=== PATIENT | female | born 1995 | race Caucasian/White ===

== ENCOUNTER 2017-09-22 14:10 | Emergency (ER) | payer BC, OTHER ==
--- NOTE | 2017-09-22 16:13 | UC ---
Throat Pain/Nasal Thomas HPI - HPI Summary HPI Summary: 22 y/o female presents to the urgent care c/o sore throat and fever since yesterday. Pain is 5/10 with swallowing. She feels mild fatigue with B/L ear pain today. she has not taking anything to alleviate symptoms. PT denies cough, nasal congestion,SOB, chest pain, N/V/D. - History of Current Complaint Chief Complaint: UCRespiratory Stated Complaint: SORE THROAT Time Seen by Provider: 09/22/17 15:57 Hx Obtained From: Patient Hx Last Menstrual Period: 08/31/17 ?: No Onset/Duration: Gradual Onset, Lasting Days - 1 day, Still Present Severity: Moderate Pain Intensity: 5 Pain Scale Used: 0-10 Numeric Cough: None Associated Signs & Symptoms: Positive: Dysphagia, Fever - Epiglottits Risk Factors Epiglottis Risk Factors: Negative - Allergies/Home Medications Allergies/Adverse Reactions: Allergies Allergy/AdvReac Type Severity Reaction Status Date / Time Penicillins Allergy Severe Anaphylatic Verified 09/22/17 14:27 Shock Pertussis Immune Globulin Allergy Mild Agitation Verified 09/22/17 14:27 Home Medications: Home Medications Bupropion XL* [Wellbutrin XL *] 1 tab PO DAILY 09/22/17 [History Confirmed 09/22] Sertraline HCl [Zoloft] 1 tab PO DAILY 09/22/17 [History Confirmed 09/22/17] PMH/Surg Hx/FS Hx/Imm Hx Previously Healthy: Yes Psychological History: Depression - Surgical History Surgical History: Yes Surgery Procedure, Year, and Place: BILATERAL MYRINGOTOMY WITH EAR TUBE PLACEMENT, [facility] [place]. 2010 LAPAROSCOPIC CHOLECYSTECTOMY, [facility] [place]. 01/2014 RIGHT WRIST DEBRIDEMENT, [facility] [place]. 2013 3 IMPACTED WISDOM TEETH EXTRACTION, [facility], [place]. 2015 RIGHT WRIST ARTHROSCOPIC SURGERY, [facility] [place] - Family History Known Family History: Positive: Diabetes - Social History Occupation: Employed Full-time Lives: With Family Alcohol Use: Rare Substance Use Type: None Smoking Status (MU): Never Smoked Tobacco Have You Smoked in the Last Year: No Household Exposure Type: Cigarettes - Immunization History Most Recent Influenza Vaccination: unknown Review of Systems Constitutional: Fever - subjective at home Skin: Negative Eyes: Negative ENT: Sore Throat, Ear Ache - B/L ear pain Respiratory: Negative Cardiovascular: Negative Gastrointestinal: Negative Genitourinary: Negative Motor: Negative Neurovascular: Negative Musculoskeletal: Negative Neurological: Negative Psychological: Negative Is Patient Immunocompromised?: No All Other Systems Reviewed And Are Negative: Yes Physical Exam Triage Information Reviewed: Yes Vital Signs: Initial Vital Signs Temp 99.0 F 09/22/17 14:22 Pulse 85 09/22/17 14:22 Resp 16 09/22/17 14:22 BP 153/86 09/22/17 14:22 Pulse Ox 100 09/22/17 14:22 - Additional Comments VITAL SIGNS: Reviewed. GENERAL: Patient is a well developed and nourished obese female who is sitting comfortable in the examining table. Patient is not in any acute respiratory distress. HEAD AND FACE: No signs of trauma. No ecchymosis, hematomas or skull depressions. No sinus tenderness. EYES: PERRLA, EOMI x 2, No injected conjunctiva, no nystagmus. No photophobia. EARS: Hearing grossly intact. Ear canals and tympanic membranes are within normal limits. MOUTH: Positive pharynx with erythema, no exudates, mild palatal petechiae.No tonsillar enlargement. Uvula in midline. Positive post nasal drip NECK: Supple, trachea is midline, Positive anterior cervical lymphadenopathy, no JVD, no carotid bruit, no c-spine tenderness, neck with full ROM. No meningeal signs, no Kernig's or brudzinskis signs. CHEST: Symmetric, no tenderness at palpation LUNGS: Clear to auscultation bilaterally. No wheezing or crackles. CVS: Regular rate and rhythm, S1 and S2 present, no murmurs or gallops appreciated. ABDOMEN: Soft, non-tender. No signs of distention. No rebound no guarding, and no masses palpated. Bowel sounds are normal. EXTREMITIES: FROM in all major joints, no edema, no cyanosis or clubbing. NEURO: Alert and oriented x 3. No acute neurological deficits. Speech is normal and follows commands. SKIN: Dry and warm Throat Pain/Nasal Course/Dx - Course Course Of Treatment: 22 y/o female presents to the urgent care c/o sore throat and fever since yesterday. Pain is 5/10 with swallowing. She feels mild fatigue with B/L ear pain today. she has not taking anything to alleviate symptoms. PT denies cough, nasal congestion,SOB, chest pain, N/V/D.Hx obtained. Pt with pharyngitis on examination. Rapid strep ordered, result: negative. Viral pharyngitis.Pt Rx ibuprofen PO to alleviates symptoms of pain and swelling. Advised on hand washing to avoid spreading. Pt advised to rest, eat well and avoid strenuous exercise. Pt" BP is elevated today, advised decrease salt in her diet.If symptoms do not improve or worsen advised to return to the urgent care or f/u with her PCP for further evaluation and treatment. Pt understood and agreed - Differential Dx/Diagnosis Differential Diagnosis/HQI/PQRI: Influenza, Laryngitis, Mononucleosis, Otitis Media, Pharyngitis, Sinusitis, Tonsillitis, URI Provider Diagnoses: 1- Acute viral pharyngitis, 2- Elevated BP w/o Hx of HTN Discharge - Discharge Plan Condition: Stable Disposition: HOME Prescriptions: Ibuprofen TAB* [Motrin TAB* 800 MG] 800 mg PO Q6H #20 tab Patient Education Materials: Pharyngitis (ED), Low Sodium Diet (ED) Forms: *Work Release Referrals: Jose Luke MD [Primary Care Provider] - Additional Instructions: 1- take Ibuprofen PO q6-8hrs prn to alleviate pain and swelling. Increase fluid intake, eat well, rest and avoid strenuous exercise 2-If symptoms do not improve or worsen please return to the urgent care or f/u with your PCP for further evaluation and treatment. 3-BP is elevated today please decrease salt in diet, monitor BP and f/u with PCP if it continues to be elevated for further management
[2017-09-22 16:26] VITALS: BP 137/76
== END 2017-09-22 16:35 | disposition home or self-care (01) ==
LOC: UCEAST 14:10
DX: J02.8 Acute pharyngitis due to other specified organisms (principal); R03.0 Elevated blood-pressure reading, without diagnosis of hypertension; Z77.22 Contact with and (suspected) exposure to environmental tobacco smoke (acute) (chronic); F32.9 Major depressive disorder, single episode, unspecified
CPT/HCPCS: 87651; 99212; G0463

== ENCOUNTER 2017-11-30 07:07 | Emergency (ER) | payer BC ==
--- OUTSIDE RECORDS SUMMARY | 2017-11-30 07:17 | XMS REPORT ---
:1995 External Reference #:[id number] Author Organization [facility] Address [address] [place] [address] Phone [phone] Care Team Providers Name Role Phone Jose Luke MD Care Team Information Client Experience Administrator Unavailable Jose Luke MD Primary Care Physician Unavailable Payers Type Date Identification Numbers Payment Provider Subscriber Commercial Effective: Policy Number: BC/BS Of KRISTOFER Luevano 2015 [id number] PayID: [id number] [address] [address] [place] [address] Problems Date Description Provider Status Onset: 09/11/2011 Gastroesophageal reflux disease Ashely Tapia Active Onset: 04/16/2012 Acute sinusitis Mikala Pizarro M.D. Active Family History Date Family Member(s) Problem(s) Comments Number of Siblings Siblings: 3 Maternal Grandmother 55, DM, DVT Social History Type Date Description Comments Living Situation Lives with girlfriend in her apartment Occupation [employer] Going to school at [employer] for her BS, wants to go on to her masters in social work Employment going to [employer] Cigarette Use Nonsmoker ETOH Use Rare Recreational Drug Use Denies Drug Use Smoking Patient has never smoked Daily Caffeine Consumes on average 2 cups of coffee per day Additional Info Sexual preference is women Allergies, Adverse Reactions, Alerts Date Description Reaction Status Severity Comments Penicillin active 12/29/2010 Pertussis active Medications Medication Date Status Form Strength Qnty SIG Indications Ordering Provider Gabapentin Active Capsules 300mg 120caps one by F41.1 Meme Lopez 017 mouth Christiano, three PULL OVER times daily as needed for anxiety; may take 2 by mouth for bedtime dose Bupropion HCL Active Tablets ER 150mg 60tabs 2 by F41.1 Meme CortésNghia ER (XL) 017 24HR mouth Christiano, every day PULL OVER F34.1 Sertraline HCL 06/29/2017 Active Tablets 50mg 45tabs Take 1 And F41.1 Shelby Atwoodr, 1/2 Tab By [employer] Mouth Every Day F34.1 Multivitamin Adults Active Tablets 1 po qd Unknown Vitamin C Active Tablets 500m take one Unknown g every day Cyclobenzaprine HCL 05/08/2016 - Hx Tablets 10mg 30ta take one M54. [place] 06/29/2017 bs tablet by 5 Julio Cesar, mouth at hs [employer] as needed muscle spasm Clonazepam 05/08/2016 - Hx Tablets 0.5m 90ta take one F41. [place] 09/26/2017 g bs tablet three 1 Julio Cesar, times a day [employer] as needed anxiety Azithromycin 05/08/2016 - Hx Tablets 250m 12ta take 2 J01. [place] 06/29/2017 g bs tablets by 90 Julio Cesar, mouth x 3d [employer] then take 1 tablet daily for next 6 days Aircast Sport Brace 03/31/2016 - Hx Medium 1uni wear during M79. Shelby Left 04/02/2016 ts the day 672 KESHA Harrell Note For Work 03/31/2016 - Hx Josalenn was M79. Shelby 05/08/2016 seen by me 672 Julio Cesar, today and [employer] O[employer]ATOR may return to work on Sunday, 6\\13\\16 Tramadol HCL 03/31/2016 - Hx Tablets 50mg 60ta 1 every 8h M54. [place] 06/29/2017 bs as needed 5 Julio Cesar, pain [employer] A[employer] Sport Ankle 03/31/2016 - Hx Misc 1uni Wear during M79. [place] Brace/Right 05/09/2016 ts the day 672 Julio Cesar until sx [employer]ATOR resolve Clonazepam 01/10/2016 - Hx Tablets 0.5m 60ta take one F41. [place] 03/31/2016 g bs tablet twice 1 Julio Cesar, a day as [employer] needed anxiety Azithromycin 04/03/2015 - Hx Tablets 250m 6tab take 2 Shelby 10/23/2015 g s tablets by Julio Cesar, mouth today [employer] O[employer] then take 1 tablet daily for next 4 days Physical Therapy 01/20/2015 - Hx evaluate and 840. Shelby 10/23/2015 treat 9 Julio Cesar shouder [employer] OPERATOR strain Tramadol HCL 01/20/2015 - Hx Tablets 50mg 40ta 1 every 8h 840. [place] 10/23/2015 bs as needed 9 Julio Cesar, pain [employer] OPERATOR Celecoxib 12/07/2014 - Hx Capsules 200m 30ca Take 1 Jose F. 10/23/2015 g ps capsule by Shallish, mouth daily M.D. prn Clonazepam 10/30/2014 - Hx Tablets 0.5m 45ta take one 300. Shelby 10/23/2015 g bs tablet twice 00 Julio Cesar, a day as [employer]ATOR needed anxiety Zithromax 09/14/2014 - Hx Tablets 250m 6Tab 2 by mouth 465. Shelby 10/30/2014 g s every day 8 Julio Cesar, today , then [employer] O[employer]ATOR 1 by mouth every day times 4 Zoloft 08/14/2014 - Hx Tablets 100m 60ta 1 by mouth F41. [place] 03/31/2016 g bs every day 1 Julio Cesar, [employer]PERATOR F34.1 F43.12 Bupropion HCL 08/14/2014 - Hx Tablets ER 150mg 30tabs 1 by mouth F41.1 Shelby ER (XL) 03/31/2016 24HR every Julio Cesar, [employer] O[employer]ATOR morning F34.1 Amitriptyline 08/14/2014 - Hx Tablets 10mg 60tabs take 1 to 2 780.52 [place] HCL 10/23/2015 tablets by Julio Cesar, mouth at [employer] O[employer]ATOR bedtime Metaxalone 08/14/2014 - Hx Tablets 800mg 45tabs 1 by mouth 847.1 Shelby 10/23/2015 every 8h as Julio Cesar, needed [employer] muscle spasm Physical Therapy 08/14/2014 - Hx evaluate 847.1 [place] 12/07/2014 and treat Julio Cesar, cervical [employer] K[employer] OPERATOR and thoracic strain Alprazolam 04/10/2014 - Hx Tablets 0.5mg 45tabs 1 by mouth 300.00 [place] 10/30/2014 twice a day Julio Cesar, [employer]ATOR Zoloft 04/10/2014 - Hx Tablets 50mg 30tabs 1 po qd 300.00 [place] 08/14/2014 KESHA Harrell Alprazolam 02/20/2014 - Hx Tablets 0.25mg 45tabs 1 bid prn 300.00 [place] 04/10/2014 anxiety LESLEY HarrellP Hydrocodone/Acet 02/20/2014 - Hx Tablets 5-325mg 60tabs 1-2 po q 8 525.8 [place] aminophen 04/10/2014 prn Julio Cesar, [employer] OPERATOR Bupropion HCL XL 02/20/2014 - Hx Tablets ER 150mg 30tabs 1 by mouth 300.00 [place] 08/14/2014 24HR every day KESHA Harrell Naproxen 02/20/2014 - Hx Tablets 500mg 60tabs Take One 525.8 [place] 12/07/2014 Tablet By Julio Cesar, Mouth Every [employer] OPERATOR 12 Hours With Food 847.1 Canvas Lace Up 01/29/2014 - Hx Wear during 845.09 [place] Left Ankle Brace 04/10/2014 the day until Julio Cesar, the pain [employer] KIL[employer] OPERATOR resolves Nystatin/Triamci 10/20/2013 - Hx Cream 1000 30gm apply to 686.9 Robyn nolone 01/29/2014 00-0 affected area Brown, PULL OVER .1Un bid x 7 days it/G or until M-% clear Levofloxacin 07/07/2013 - Hx Tablets 500m 10tabs 1 by mouth 461.9 Valente Delaney, 10/20/2013 g every day for M.D. 10 days Excuse For 07/07/2013 - Hx pt seen in 461.9 Valente Delaney, [facility] 10/20/2013 office today M.D. please excuse Loratadine 06/26/2013 - Hx Tablets 10mg 30tabs 1 po qd 995.3 Leyda 02/20/2014 Ashely Little Clarithromycin 05/02/2013 - Hx Tablets 500m 20tabs take 1 tablet 461.0 [place] 06/26/2013 g by mouth Julio Cesar, every 12 [employer] OPERATOR hours Note Due To 03/13/2013 - Hx Christa was 462 [place] Health Issues 05/02/2013 see by me Julio Cesar, again and february [employer] OPERATOR return to work on Sunday, 5\\28\\13. Hydrocodone/Acet 03/10/2013 - Hx Tablets 5-32 40tabs 1-2 po q 8 462 [place] aminophen 05/02/2013 5mg prn KESHA Harrell Prednisone 03/10/2013 - Hx Tablets 20mg 10tabs 1 bid x 5d 462 [place] 05/02/2013 KESHA Harrell Naproxen 01/25/2013 - Hx Tablets 250m 20tabs 1-2 po bid 462 Jose F. 02/20/2014 g prn pain Hermelinda Luke Bactrim DS 01/25/2013 - Hx Tablets 800- 20tabs 1 po bid x 10 Yolie L. 03/10/2013 160m mulugeta Ruano M.D. No Active 09/06/2012 - Hx Unknown Medications 09/06/2012 Azithromycin 09/06/2012 - Hx Tablets 250m 12tabs take 2 461.9 [place] 09/25/2012 g tablets by Julio Cesar, mouth x 3d [employer] OPERATOR then take 1 tablet daily for next 6 days Robitussin A-C 09/06/2012 - Hx 120cc 1-2 tsp po 461.9 [place] 09/25/2012 q4h prn cough KESHA Harrell Note Due To 09/06/2012 - Hx Josalenn was 461.9 [facility] Health Issues 09/25/2012 seen by me Harrell, today for [employer] K[employer] OPERATOR illness and was unable to go to class, february return on Sunday, \\\\12 Cholestyramine 09/06/2012 - Hx Packet 4gm 60units Mix One Shelby 05/08/2016 Packet In Julio Cesar Clear Liquid [employer]UDGE KIL[employer] OPERATOR And Drink It Twice Daily Azithromycin 07/05/2012 - Hx Tablets 250m 12tabs take 2 461.9 [place] 09/06/2012 g tablets by Julio Cesar, mouth x 3d L[employer] KIL[employer] OPERATOR then take 1 tablet daily for next 6 days Note For School 07/05/2012 - Hx Please excuse 461.9 [place] 09/06/2012 [place]enn from [place] Harrell today LIME [employer]UDGE KIL[employer] OPERATOR due to illness Work Note 05/01/2012 - Hx seen in this 719.43 Mily 07/05/2012 office ok for [facility], work return, Afnp-C no lifting more than 5 lbs. Naproxen 05/01/2012 - Hx Tablets 500m 30tabs 1 po bid prn 719.43 Mily 07/05/2012 g pain Milka, Afreynold-C take with food Levofloxacin 04/16/2012 - Hx Tablets 750m 5tabs 1 po qd Mikala Arriaga 05/01/2012 mulugeta Pizarro M.D. Fluconazole 03/13/2012 - Hx Tablets 150m 2tabs 1 po ; february 112.1 Leyda 04/16/2012 g repeat in 5-7 michelle Little Afnp-C Mycolog-II 03/13/2012 - Hx Cream 30gm apply bid to 112.1 Leyda 05/01/2012 affected area [place] Fu[place]old-C Zithromax 10/16/2011 - Hx Tablets 250m 6Tabs 2 po qd today 382.9 Yolie Swenson 12/29/2011 g , then 1 po Alden, qd times 4 M.D. Vitamin D 09/18/2011 - Hx 50,0 8units 1 po weekly x Yolie Swenson 12/29/2011 00Un 8 weeks. katt Ruano M.D. Omeprazole 09/05/2011 - Hx Capsules DR 20mg 60caps 2 po qd Mily 05/01/2012 Milka Adelina-C Azithromycin 09/05/2011 - Hx Tablets 250m 12tabs take 2 461.0 [place] 01/10/2012 g tablets by rajwinder Harrell x 3d L[employer] K[employer] OPERATOR then take 1 tablet daily for next 6 days Note For School 09/05/2011 - Hx Josalenn was 461.0 [place] 01/10/2012 seen by me Harrell, today for [employer] K[employer] OPERATOR illness, missed classes this due to this illness Zithromax 03/02/2011 - Hx Tablets 250m 6Tabs 2 po qd today 382.9 Leyda 07/01/2011 g , then 1 po Anabel, qd times 4 Afnp-C Physical Therapy 01/25/2011 - Hx treatment and 842.19 Leyda 02/03/2011 evaluation of Anabel right Afreynold-C wrist/thumb sprain Minocin 01/25/2011 - Hx Capsules 100m 60caps 1 po bid 706.1 Leyda 07/01/2011 g Adelina Little-C Gym Excuse 12/29/2010 - Hx no gym class 842.19 Leyda 01/07/2011 due to right Anabel, hand/wrist Afnp-C injury until released by doctor; at least x 2 wks Work Limitation 12/29/2010 - Hx can work if 842.19 Leyda 01/07/2011 wrist splint Anabel, can stay in Afnp-C place; no heavy lifting due to right hand/wrist injury Zithromax 09/23/2010 - Hx Tablets 250m 6Tabs 2 po qd today Luis T. 12/29/2010 g , then 1 po Midura, qd times 4 M.D. Work Excuse 09/23/2010 - Hx unable to Luis T. 12/29/2010 work due to Midura, illness from M.D. 09/19 through 09/25 Gym Excuse 09/23/2010 - Hx unable to Luis T. 12/29/2010 participate Midjohn, in swimming M.D. due to chlorine sensitivity Nasonex 07/14/2010 - Hx Suspension 50 Samples 2 puffs qd Deepa 12/29/2010 g/Ac octavio Mckenzie M.D. Out Of Work 07/14/2010 - Hx pt to be out Marrero 09/21/2010 of work octavio and Jonah 07/15/10 for M.D. medical condition Fluconazole 06/19/2009 - Hx Tablets 150m 1tabs one tab po 789.00 Sanchez A. 07/02/2010 g otoniel Larry M.D. Note Due To 08/31/2008 - Hx stefanysallo was 078.12 [place] Health Issues 11/24/2009 seen by me Harrell, today for A [employer]IL[employer] OPERATOR planatr wart and may not participate in swimming, referred to A specialist [facility]-12 12/22/2005 - Hx Suspension 30mg 120ml 1 tsp bid 490 [place] 09/07/2007 ;4 Julio Cesar, mg/5 LIME SLUD[employer] KILN OPERATOR ML Robitussin ac 12/22/2005 - Hx 4Oz 1-2 tsp po 490 [place] 09/07/2007 q4h prn cough LESLEY HarrellP Ees 01/30/2005 - Hx 400m 30units 1 tid [place] 08/23/2005 g KESHA Harrell Biaxin 12/23/2002 - Hx 125m 150cc 1 1/2 tsp po Antonio A. Suspension 01/02/2003 g/5c bid maya Milton M.D. Rondac 12/23/2002 - Hx 100cc 1 TSP qid prn Antonio A. 01/02/2003 Hermelinda Milton Cefzil 04/08/2002 - Hx 250m 100ml 1 TSP PO bid Leyda Suspension 04/18/2002 g/5c X 10 Days maya Little Omeprazole - Hx Capsules DR 20mg 60caps 2 po qd Leyda 09/05/2011 Ashely Little [place] - Hx Suspension 1GM/ 2 tsp tid on Yolie LNghia 09/05/2011 10ML empty stomach Hermelinda Ruano Oxycodone/Acetam - Hx Tablets 5-32 20tabs 1-2 po q6 hrs Yolie Swenson inophen 09/05/2011 5mg prn pain Hermelinda Ruano (tw[age]) Hydrocodone/Acet - Hx Tablets 2.5- 1 po q4-6 hrs Unknown aminophen 05/02/2013 500m prn g Clarithromycin - Hx Tablets 1 po q6h Unknown 02/20/2014 Medications Administered in Office Medication Date Status Form Strength Qnty SIG Indications Ordering Provider TB Intradermal Administered Injection Jose Mills Test 014 Hermelinda Luke TB Intradermal Administered Injection Unknown Test 994 TB Intradermal Administered Injection Unknown Test 993 Immunizations CPT Code Status Date Vaccine Lot # [id number] Given 02/25/2013 Gardasil vacine typs 6,11,16,18 3 dose schedule [id number] 14493 Given 09/25/2012 Varicella (Chicken Pox) Immunization [id number] 02634 Given 09/25/2012 Gardasil vacine typs 6,11,16,18 3 dose schedule [id number] 99093 Given 12/29/2010 Meningococcal Conjugate Vaccine,Serogroups For [id number] Intramuscular Use 76063 Given 12/29/2010 Tetanus And Diptheria Adult Preservative Free [id number] >7Yrs 44637 Given 10/06/2009 H1N1 Virus Vaccine [id number] 50257 Given 10/06/2009 H1N1 Immunization Intramuscular/Intranasal W Counseling 98444 Given 07/07/2009 DO Not Use Split Influenza Virus Vaccine [id number] 21050 Given 08/22/2003 DT Immunization 61309 Given 04/07/1998 Oral Poliovirus Immunization 45289 Given 04/07/1998 MMR Virus Immunization 73058 Given 04/07/1998 DT Immunization 69525 Given 12/02/1997 Hepatitis B Immunization, [place]-19 Years 56333 Given 07/17/1997 Hepatitis B Immunization, -19 Years 71317 Given 06/16/1997 Hepatitis B Immunization, -19 Years 80129 Given 11/09/1994 (IPV) Inactive Poliovirus Vaccine 05472 Given 11/09/1994 MMR Virus Immunization 82969 Given 11/09/1994 DT Immunization 18593 Given 11/09/1994 (Hib) Hemoplilus Influenza B 80951 Given 1993 (IPV) Inactive Poliovirus Vaccine 09648 Given 1993 DT Immunization 15312 Given 1993 (IPV) Inactive Poliovirus Vaccine 39411 Given 1993 DT Immunization 51702 Given 1993 (IPV) Inactive Poliovirus Vaccine 88174 Given 1993 DT Immunization Vital Signs Date Vital Result Comment 11/19/2017 BP Systolic 118 mmHg BP Diastolic 78 mmHg Heart Rate 72 /min Body Temperature 98.0 F Respiratory Rate 18 /min Weight 259.00 lb 09/26/2017 BP Systolic 124 mmHg BP Diastolic 80 mmHg Heart Rate 78 /min Body Temperature 98.0 F Respiratory Rate 8 /min O2 % BldC Oximetry 16 % Height 67.5 inches 5'7.50" Weight 257.00 lb BMI (Body Mass Index) 39.7 kg/m2 06/29/2017 BP Systolic 122 mmHg BP Diastolic 84 mmHg Heart Rate 80 /min Body Temperature 98.0 F Respiratory Rate 18 /min Height 67.5 inches 5'7.50" Weight 274.00 lb BMI (Body Mass Index) 42.3 kg/m2 05/08/2016 BP Systolic 116 mmHg BP Diastolic 84 mmHg Heart Rate 84 /min Body Temperature 98.1 F Respiratory Rate 16 /min Height 67.5 inches 5'7.50" Weight 278.12 lb BMI (Body Mass Index) 42.9 kg/m2 03/31/2016 BP Systolic 122 mmHg BP Diastolic 64 mmHg Heart Rate 68 /min Body Temperature 98.2 F Respiratory Rate 18 /min Height 67.5 inches 5'7.50" Weight 280.00 lb BMI (Body Mass Index) 43.2 kg/m2 01/10/2016 BP Systolic 118 mmHg BP Diastolic 62 mmHg Heart Rate 76 /min Body Temperature 98.2 F Respiratory Rate 16 /min Height 67.5 inches 5'7.50" Weight 281.00 lb BMI (Body Mass Index) 43.4 kg/m2 01/20/2015 BP Systolic 120 mmHg BP Diastolic 88 mmHg Heart Rate 68 /min Body Temperature 98.2 F Respiratory Rate 18 /min Height 67.5 inches 5'7.50" Weight 272.00 lb BMI (Body Mass Index) 42.0 kg/m2 01/11/2015 BP Systolic 112 mmHg BP Diastolic 72 mmHg Heart Rate 64 /min Body Temperature 96.7 F Respiratory Rate 16 /min Height 67.5 inches 5'7.50" Weight 271.38 lb BMI (Body Mass Index) 41.9 kg/m2 12/07/2014 BP Systolic 112 mmHg BP Diastolic 72 mmHg Heart Rate 75 /min Body Temperature 97.8 F Respiratory Rate 18 /min O2 % BldC Oximetry 99 % SOB, Height 67.5 inches 5'7.50" Weight 272.38 lb BMI (Body Mass Index) 42.0 kg/m2 10/30/2014 BP Systolic 110 mmHg BP Diastolic 84 mmHg Heart Rate 84 /min Body Temperature 98.0 F Respiratory Rate 18 /min Height 67.5 inches 5'7.50" Weight 273.00 lb BMI (Body Mass Index) 42.1 kg/m2 09/14/2014 BP Systolic 120 mmHg BP Diastolic 80 mmHg Heart Rate 88 /min Body Temperature 98.6 F Respiratory Rate 18 /min Height 67.5 inches 5'7.50" Weight 274.00 lb BMI (Body Mass Index) 42.3 kg/m2 08/14/2014 BP Systolic 104 mmHg BP Diastolic 82 mmHg Heart Rate 76 /min Body Temperature 96.9 F Respiratory Rate 14 /min Height 67.5 inches 5'7.50" Weight 274.00 lb BMI (Body Mass Index) 42.3 kg/m2 07/08/2014 BP Systolic 122 mmHg BP Diastolic 82 mmHg Heart Rate 80 /min Body Temperature 97.9 F Respiratory Rate 14 /min Height 67.5 inches 5'7.50" Weight 273.00 lb BMI (Body Mass Index) 42.1 kg/m2 05/13/2014 BP Systolic 124 mmHg BP Diastolic 66 mmHg Heart Rate 74 /min Body Temperature 98.3 F Respiratory Rate 16 /min Height 67.5 inches 5'7.50" Weight 267.12 lb BMI (Body Mass Index) 41.2 kg/m2 04/10/2014 BP Systolic 110 mmHg BP Diastolic 80 mmHg Heart Rate 80 /min Body Temperature 97.6 F Respiratory Rate 16 /min Height 67.5 inches 5'7.50" Weight 277.00 lb BMI (Body Mass Index) 42.7 kg/m2 03/13/2014 BP Systolic 120 mmHg BP Diastolic 84 mmHg Heart Rate 84 /min Body Temperature 98.0 F Respiratory Rate 16 /min Height 67.5 inches 5'7.50" Weight 277.00 lb BMI (Body Mass Index) 42.7 kg/m2 02/20/2014 BP Systolic 122 mmHg BP Diastolic 86 mmHg Heart Rate 88 /min Body Temperature 98.3 F Respiratory Rate 16 /min Height 67.5 inches 5'7.50" Weight 279.00 lb BMI (Body Mass Index) 43.0 kg/m2 01/29/2014 BP Systolic 112 mmHg BP Diastolic 66 mmHg Heart Rate 80 /min Body Temperature 98.6 F Respiratory Rate 16 /min Height 67.5 inches 5'7.50" Weight 279.12 lb BMI (Body Mass Index) 43.1 kg/m2 10/20/2013 BP Systolic 120 mmHg BP Diastolic 80 mmHg Heart Rate 64 /min Body Temperature 98.3 F Respiratory Rate 18 /min Height 67.5 inches 5'7.50" Weight 279.00 lb BMI (Body Mass Index) 43.0 kg/m2 07/07/2013 BP Systolic 112 mmHg BP Diastolic 72 mmHg Heart Rate 76 /min Body Temperature 98.4 F Respiratory Rate 16 /min Weight 262.00 lb 06/26/2013 BP Systolic 128 mmHg BP Diastolic 70 mmHg Heart Rate 80 /min Body Temperature 98.3 F Respiratory Rate 18 /min Height 67.5 inches 5'7.50" Weight 261.00 lb BMI (Body Mass Index) 40.3 kg/m2 05/02/2013 BP Systolic 130 mmHg BP Diastolic 70 mmHg Heart Rate 72 /min Body Temperature 98.7 F Respiratory Rate 18 /min Height 67.5 inches 5'7.50" Weight 268.00 lb BMI (Body Mass Index) 41.4 kg/m2 03/13/2013 Heart Rate 92 /min Body Temperature 98.3 F Respiratory Rate 16 /min Height 67.5 inches 5'7.50" Weight 265.00 lb BMI (Body Mass Index) 40.9 kg/m2 03/10/2013 BP Systolic 110 mmHg BP Diastolic 80 mmHg Heart Rate 90 /min Body Temperature 99.6 F Respiratory Rate 16 /min Height 67.5 inches 5'7.50" measured Weight 265.25 lb BMI (Body Mass Index) 40.9 kg/m2 10/23/2012 BP Systolic 110 mmHg BP Diastolic 80 mmHg Heart Rate 102 /min Height 67.5 inches 5'7.50" measured Weight 250.00 lb BMI (Body Mass Index) 38.6 kg/m2 09/25/2012 BP Systolic 124 mmHg BP Diastolic 64 mmHg Heart Rate 66 /min Body Temperature 98.4 F Height 67.5 inches 5'7.50" measured Weight 248.00 lb BMI (Body Mass Index) 38.3 kg/m2 Right Visual Acuity Distance 20/70 Left Visual Acuity Distance 20/20 09/06/2012 BP Systolic 136 mmHg BP Diastolic 88 mmHg Heart Rate 78 /min Body Temperature 98.1 F Height 68 inches 5'8" Weight 250.00 lb BMI (Body Mass Index) 38.0 kg/m2 07/05/2012 BP Systolic 110 mmHg BP Diastolic 84 mmHg Heart Rate 77 /min Body Temperature 99.3 F Height 68 inches 5'8" Weight 240.00 lb BMI (Body Mass Index) 36.5 kg/m2 05/01/2012 BP Systolic 92 mmHg BP Diastolic 68 mmHg Heart Rate 68 /min Body Temperature 98.2 F Height 68 inches 5'8" Weight 233.00 lb BMI (Body Mass Index) 35.4 kg/m2 04/16/2012 BP Systolic 118 mmHg BP Diastolic 72 mmHg Heart Rate 80 /min Body Temperature 98.9 F Respiratory Rate 22 /min O2 % BldC Oximetry 99 % Height 68 inches 5'8" Weight 234.00 lb BMI (Body Mass Index) 35.6 kg/m2 03/13/2012 BP Systolic 110 mmHg BP Diastolic 80 mmHg Heart Rate 68 /min Body Temperature 98.4 F Height 68 inches 5'8" Weight 214.00 lb BMI (Body Mass Index) 32.5 kg/m2 Body Mass Index Percentile 96 % Weight Percentile >97th Height Percentile 92 % 01/24/2012 BP Systolic 120 mmHg BP Diastolic 80 mmHg Heart Rate 72 /min Body Temperature 97.3 F Respiratory Rate 18 /min Height 68 inches 5'8" Weight 236.00 lb BMI (Body Mass Index) 35.9 kg/m2 Body Mass Index Percentile 97 % Weight Percentile >97th Height Percentile 92 % 01/10/2012 BP Systolic 104 mmHg BP Diastolic 70 mmHg Heart Rate 76 /min Body Temperature 98.8 F Respiratory Rate 18 /min Height 68 inches 5'8" Weight 232.00 lb BMI (Body Mass Index) 35.3 kg/m2 Body Mass Index Percentile 97 % Weight Percentile >97th Height Percentile 92 % 12/29/2011 BP Systolic 100 mmHg BP Diastolic 60 mmHg Heart Rate 60 /min Body Temperature 97.4 F Respiratory Rate 20 /min Height 68 inches 5'8" Weight 234.00 lb BMI (Body Mass Index) 35.6 kg/m2 Body Mass Index Percentile 97 % Weight Percentile >97th Height Percentile 92 % 09/05/2011 BP Systolic 110 mmHg BP Diastolic 78 mmHg Heart Rate 76 /min Body Temperature 97.8 F Height 68 inches 5'8" Weight 235.00 lb BMI (Body Mass Index) 35.7 kg/m2 Body Mass Index Percentile 97 % Weight Percentile >97th Height Percentile 93 % 07/01/2011 BP Systolic 112 mmHg BP Diastolic 80 mmHg Heart Rate 60 /min Body Temperature 97.3 F Height 68 inches 5'8" Weight 241.00 lb BMI (Body Mass Index) 36.6 kg/m2 Body Mass Index Percentile 98 % Weight Percentile >97th Height Percentile 93 % 03/02/2011 BP Systolic 106 mmHg BP Diastolic 64 mmHg Heart Rate 92 /min Body Temperature 98.0 F Respiratory Rate 20 /min Height 68 inches 5'8" Weight 255.00 lb BMI (Body Mass Index) 38.8 kg/m2 Body Mass Index Percentile 98 % Weight Percentile >97th Height Percentile 93 % 01/25/2011 BP Systolic 104 mmHg BP Diastolic 80 mmHg Heart Rate 76 /min Body Temperature 97.5 F Height 68 inches 5'8" Weight 257.00 lb BMI (Body Mass Index) 39.1 kg/m2 Body Mass Index Percentile 98 % Weight Percentile >97th Height Percentile 93 % Right Visual Acuity Distance 20/70 Without Correction Left Visual Acuity Distance 20/25 Without Correction 12/29/2010 BP Systolic 110 mmHg BP Diastolic 70 mmHg Heart Rate 76 /min Weight 252.00 lb Weight Percentile >97th Height Percentile 3 % 09/23/2010 BP Systolic 102 mmHg BP Diastolic 68 mmHg Heart Rate 76 /min Body Temperature 99.5 F Weight 254.00 lb Weight Percentile >97th 09/21/2010 BP Systolic 130 mmHg BP Diastolic 80 mmHg Heart Rate 68 /min Body Temperature 98.6 F Weight 254.00 lb Weight Percentile >97th 07/14/2010 BP Systolic 90 mmHg BP Diastolic 70 mmHg Heart Rate 78 /min Body Temperature 98.3 F Weight 253.00 lb Weight Percentile >97th Height Percentile 3 % 11/24/2009 BP Systolic 110 mmHg BP Diastolic 80 mmHg Heart Rate 72 /min Body Temperature 98.3 F Weight 252.00 lb Weight Percentile >97th 06/23/2009 BP Systolic 118 mmHg BP Diastolic 72 mmHg Heart Rate 68 /min Weight 245.00 lb Weight Percentile >97th Height Percentile 3 % 06/19/2009 BP Systolic 120 mmHg BP Diastolic 80 mmHg Heart Rate 80 /min Body Temperature 97.8 F Weight 240.00 lb Weight Percentile >97th 08/31/2008 BP Systolic 110 mmHg BP Diastolic 80 mmHg Heart Rate 80 /min Body Temperature 98.4 F Weight 246.00 lb Weight Percentile >97th 02/10/2008 BP Systolic 124 mmHg BP Diastolic 80 mmHg Heart Rate 60 /min Body Temperature 98.0 F Weight 230.00 lb Weight Percentile >97th 09/07/2007 BP Systolic 126 mmHg BP Diastolic 60 mmHg Heart Rate 78 /min Body Temperature 98.8 F Weight 228.00 lb Weight Percentile >95th 12/22/2005 Heart Rate 108 /min Body Temperature 99.9 F Weight 219.00 lb Weight Percentile >95th 08/23/2005 BP Systolic 110 mmHg BP Diastolic 64 mmHg Heart Rate 72 /min Body Temperature 97.9 F Weight 203.00 lb Weight Percentile >95th 01/30/2005 BP Systolic 106 mmHg BP Diastolic 70 mmHg Heart Rate 84 /min Body Temperature 97.6 F Weight 197.00 lb Weight Percentile >95th 12/23/2002 BP Systolic 104 mmHg BP Diastolic 72 mmHg Heart Rate 68 /min Body Temperature 98.1 F Weight 137.00 lb Weight Percentile >95th 06/16/2002 BP Systolic 100 mmHg BP Diastolic 50 mmHg Heart Rate 80 /min Height 58 inches 4'10" Weight 122.00 lb BMI (Body Mass Index) 25.5 kg/m2 Weight Percentile >95th Height Percentile 95 % 04/08/2002 Heart Rate 84 /min Body Temperature 98.4 F Weight 124.00 lb Weight Percentile >95th 06/20/2001 BP Systolic 102 mmHg BP Diastolic 64 mmHg Heart Rate 80 /min Height 55.25 inches 4'7.25" Weight 105.00 lb BMI (Body Mass Index) 24.4 kg/m2 Weight Percentile >95th Height Percentile 95 % Right Visual Acuity Distance 20/25 Left Visual Acuity Distance 20/40 07/04/2000 BP Systolic 102 mmHg BP Diastolic 60 mmHg Heart Rate 80 /min Height 52.5 inches 4'4.50" Weight 87.00 lb BMI (Body Mass Index) 22.6 kg/m2 Head Percentile 5 % Weight Percentile >95th Height Percentile 95 % Right Visual Acuity Distance 20/50 Left Visual Acuity Distance 20/50 10/31/1999 Body Temperature 97.2 F Weight 81.00 lb Weight Percentile >95th 07/26/1999 Body Temperature 99.2 F Weight 78.00 lb Weight Percentile >95th 06/13/1999 BP Systolic 104 mmHg BP Diastolic 62 mmHg Heart Rate 78 /min Height 42 inches 0'4" Weight 78.00 lb Weight Percentile >95th Height Percentile 5 % Right Visual Acuity Distance 20/50 Left Visual Acuity Distance 20/20 04/07/1998 BP Systolic 86 mmHg Ra Ped Cuff BP Diastolic 58 mmHg Ra Ped Cuff Heart Rate 92 /min Height 45.5 inches 3'9.50" Weight 61.50 lb Weight Percentile >95th 12/21/1997 Body Temperature 96.1 F Weight 58.00 lb Weight Percentile >95th 12/02/1997 Body Temperature 99.1 F Weight 57.00 lb Weight Percentile >95th 06/16/1997 BP Systolic 80 mmHg BP Diastolic 60 mmHg Height 42.50 inches 3'6.50" Weight 47.50 lb 47 lbs. 8 ozs. Weight Percentile >95th Results Test Date Test Result H/L Range Note Laboratory test 09/22/2017 Rapid Strep Negative Negative 1 finding Molecular Laboratory test 09/21/2015 Urine Negative Negative 2 finding Laboratory test 12/04/2014 Troponin I 0.00 ng/mL <0.03 3 finding CBC Auto Diff 12/04/2014 White Blood Count 10.4 10^3/uL 4.8-10.8 Red Blood Count 4.29 10^6/uL 4.0-5.4 Hemoglobin 11.9 g/dL Low 12.0-16.0 Hematocrit 37 % 35-47 Mean Corpuscular Volume 85 fL 80-97 Mean Corpuscular Hemoglobin 28 pg 27-31 Mean Corpuscular HGB Conc 33 g/dL 31-36 Red Cell Distribution Width 14 % 10.5-15 Platelet Count 241 10^3/uL 150-450 Mean Platelet Volume 10 um3 7.4-10.4 Abs Neutrophils 7.6 10^3/uL 1.5-7.7 Abs Lymphocytes 2.2 10^3/uL 1.0-4.8 Abs Monocytes 0.5 10^3/uL 0-0.8 Abs Eosinophils 0.1 10^3/uL 0-0.6 Abs Basophils 0.1 10^3/uL 0-0.2 Abs Nucleated RBC 0 10^3/uL Granulocyte % 73.2 % 38-83 Lymphocyte % 20.8 % Low 25-47 Monocyte % 4.6 % 1-9 Eosinophil % 0.7 % 0-6 Basophil % 0.7 % 0-2 Nucleated Red Blood Cells % 0 Comp Metabolic Panel 12/04/2014 Sodium 138 mmol/L 133-145 Potassium 3.8 mmol/L 3.5-5.0 Chloride 107 mmol/L 101-111 Co2 Carbon Dioxide 26 mmol/L 22-32 Anion Gap 5 mmol/L 2-11 Glucose 101 mg/dL High 70-100 Blood Urea Nitrogen 10 mg/dL 6-24 Creatinine 0.82 mg/dL 0.51-0.95 BUN/Creatinine Ratio 12.2 8-20 Calcium 9.1 mg/dL 8.6-10.3 Total Protein 7.1 g/dL 6.4-8.9 Albumin 3.9 g/dL 3.2-5.2 Globulin 3.2 g/dL 2-4 Albumin/Globulin Ratio 1.2 1-3 Total Bilirubin 0.30 mg/dL 0.2-1.0 Alkaline Phosphatase 92 U/L 34-104 Alt 19 U/L 7-52 Ast 18 U/L 13-39 Egfr Non- 88.0 >60 Egfr 113.2 >60 4 Laboratory test 12/04/2014 D Dimer Quantitative < 200 ng/mL Less Than 230 5 finding Laboratory test 07/08/2014 Quickstrep NEGATIVE Negative finding Throat - Beta Strep Fma NEG @ 48HRS Ebv Acute Infection Abs 07/08/2014 Ebv Ab Vca, IgM <36.0 U/mL 0.0- 35.9 6 Ebv Early Antigen Ab, IgG <9.0 U/mL 0.0-8.9 7 Ebv Ab Vca, IgG 145.0 U/mL High 0.0-17.9 8 Ebv Nuclear Antigen Ab, IgG 167.0 U/mL High 0.0-17.9 9 Interpretation: SEE NOTE 10 CBC Electronic (a) 10/20/2013 WBC 7.8 3.6-9.6 RBC 4.23 3.90-5.70 Hemoglobin (Fma/CMC/CTX) 11.9 g/dL Low 12.1 - 17.2 Hematocrit (Fma/CMC/CTX) 35.7 % Low 36.1 - 50.3 Platelets 254 10^3/ul 150-400 Lymph% 28.5 20.5-51.1 Mixed% 3.1 Neutrophils % 68.4 Mean Corpuscular Vol 84 82.2-97.4 Mean Corpuscular Hemoglobin 28.0 27.6-33.3 Mean Corpuscular Hemo Concen 33.2 32.0-36.0 RDW 14.1 High 11.6-13.7 Mean Platelet Volume 8.7 6.5-11.0 Comprehensive Metabolic Prof 10/20/2013 Albumin 4.4 g/dL 3.8-5.5 Alk. Phos. 94 U/L 30-110 Alt (SGPT) 25 U/L 7-35 Ast (Sgot) 22 U/L 5-34 BUN 13 mg/dL 6-26 Calcium 9.1 mg/dL 8.6-10.2 Chloride 100 mEq/L 94-112 Creatinine 0.9 mg/dL 0.6-1.4 Carbon Dioxide 25 mEq/L 21-32 Glucose 88 mg/dL 70-105 Sodium 138 mEq/L 134-149 Total Bilirubin 0.3 mg/dL 0.2-1.3 Total Protein 7.5 g/dL 6.3-8.1 Potassium 4.8 mEq/L 3.6-5.5 Globulin 3.1 g/dL 2.0-4.8 A/G Ratio 1.4 Calc 0.6-2.3 BUN/Creat Ratio 15.1 Calc 8.0-36.0 Laboratory test finding 10/20/2013 Lipase 38 U/L 1-64 11 Laboratory test finding 10/20/2013 Amylase 36 U/L 20-105 Laboratory test finding 06/26/2013 Quickstrep NEGATIVE Negative Throat - Beta Strep Fma neg@48hrs CMV Abs Igg/Igm 03/10/2013 CMV Ab, IgG (Cytomegalovirus) <0.9 index 0.0-0.8 12 CMV Ab, IgM Cytomegalovirus <0.9 index 0.0-0.8 13 Ebv Acute Infection Abs 03/10/2013 Ebv Ab Vca, IgM 0.4 AI 0.0-0.8 14 Ebv Early Antigen Ab, IgG <0.2 AI 0.0-0.8 15 Ebv Ab Vca, IgG 7.7 AI High 0.0-0.8 16 Ebv Nuclear Antigen Ab, IgG >8.0 AI High 0.0-0.8 17 Interpretation: SEE NOTE 18 Urine Microscopic 03/09/2013 Urine WBC 1+ (<10 /hpf) None Seen Urine RBC None Seen None Seen Urine Mucus Present /lpf Absent Urine Epithelial Cells 1+ Squamous /hpf None Seen Bacteria Urine 2+ None Seen Crystals Urine Amorphous /lpf None Seen Urinalysis 03/09/2013 Urine Color Yellow Urine Appearance Clear Urine Specific [place] 1.025 1.010-1.030 Urine Esterase Negative Negative Urine Nitrate Negative Negative Urine Urobilinogen Negative E.U./dL Negative Urine Protein 1+ mg/dL Negative Urine pH 6.0 5-9 Urine Blood Trace Negative Urine Ketones Negative mg/dL Negative Urine Bilirubin Negative Negative Urine Glucose Negative mg/dL Negative Laboratory test finding 03/09/2013 Monospot Negative Negative 19 Laboratory test finding 03/09/2013 Urine Negative Negative 20 Comp Metabolic Panel 03/09/2013 Sodium 140 mmol/L 133-145 Potassium 4.2 mmol/L 3.5-5.0 Chloride 106 mmol/L 101-111 Co2 Carbon Dioxide 25.0 mmol/L 22-32 Anion Gap 9.0 mmol/L 2-11 Glucose 98 mg/dL 70-100 Blood Urea Nitrogen 12 mg/dL 6-24 Creatinine 0.80 mg/dL 0.50-1.40 BUN/Creatinine Ratio 15.0 8-20 Calcium 8.9 mg/dL 8.1-9.9 Total Protein 6.3 g/dL 6.2-8.1 Albumin 3.7 g/dL 3.6-5.4 Globulin 2.6 g/dL 2-4 Albumin/Globulin Ratio 1.4 1-3 Total Bilirubin 0.4 mg/dL 0.4-1.5 Alkaline Phosphatase 128 U/L 50-176 Alt 44 U/L 14-54 Ast 29 U/L 12-42 Egfr Non- 92.4 >60 Egfr 118.8 >60 21 CBC Auto Diff 03/09/2013 White Blood Count 11.4 10^3/uL High 4.8-10.8 Red Blood Count 4.19 10^6/uL 4.0-5.4 Hemoglobin 11.9 g/dL Low 12.0-16.0 Hematocrit 36 % 35-47 Mean Corpuscular Volume 86 fL 80-97 Mean Corpuscular Hemoglobin 28 pg 27-31 Mean Corpuscular HGB Conc 33 g/dL 31-36 Red Cell Distribution Width 13 % 10.5-15 Platelet Count 242 10^3/uL 150-450 Mean Platelet Volume 11 um3 High 7.4-10.4 Abs Neutrophils 8.4 10^3/uL High 1.5-7.7 Abs Lymphocytes 2.1 10^3/uL 1.0-4.8 Abs Monocytes 0.9 10^3/uL High 0-0.8 Abs Eosinophils 0 10^3/uL 0-0.6 Abs Basophils 0 10^3/uL 0-0.2 Abs Nucleated RBC 0.02 10^3/uL Granulocyte % 73.6 % 38-83 Lymphocyte % 18.1 % Low 25-47 Monocyte % 8.0 % 1-9 Eosinophil % 0.1 % 0-6 Basophil % 0.2 % 0-2 Nucleated Red Blood Cells % 0.1 Urinalysis 03/08/2013 Urine Color Yellow Urine Appearance Clear Urine Specific [place] 1.025 1.010-1.030 Urine Esterase Negative Negative Urine Nitrate Negative Negative Urine Urobilinogen Negative E.U./dL Negative Urine Protein Trace mg/dL Negative Urine pH 5.5 5-9 Urine Blood Negative Negative Urine Ketones Negative mg/dL Negative Urine Bilirubin Negative Negative Urine Glucose Negative mg/dL Negative Rapid Strep A 03/08/2013 Rapid Strep A (SEE NOTE) 22 Laboratory test finding 03/08/2013 Rapid Influenza A B Antigen (SEE NOTE) 23 Throat Beta Strep Culture (SEE NOTE) 24 HSV Igm I/II 10/23/2012 HSV, IgM I/II <0.91 Ratio 0.00-0.90 25, 26 Combination Combination Nuswab Vaginitis 10/23/2012 Atopobium vaginae 0 (Low) Score 25 Plus Bvab 2 0 (Low) Score 25 Megasphaera 1 0 (Low) Score 25, 27 Noemi albicans, Darline Negative Negative 25 Noemi glabrata, Darline Negative Negative 25, 28 Trich vag by Darline Negative Negative 25 Chlamydia trachomatis, Darline Negative Negative 25 Neisseria gonorrhoeae, Darline Negative Negative 25 Laboratory test finding 10/23/2012 TSH 1.68 mIU/L 0.50-6.00 Lipid Profile 10/23/2012 Cholesterol 158 mg/dL 120-200 HDL 48 mg/dL 30-85 Triglycerides 100 mg/dL 30-200 HDL Risk Factor 3.3 CALC 0.0-4.4 LDL (Calculated) 90 CALC 0-129 VLDL (Calculated) 20 mg/dL 0-50 Comprehensive Metabolic Prof 10/23/2012 Albumin 5.1 g/dL 3.8-5.5 Alk. Phos. 133 U/L High 30-110 29 Alt (SGPT) 42 U/L High 7-35 30 Ast (Sgot) 32 U/L 5-34 BUN 16 mg/dL 6-26 Calcium 9.4 mg/dL 8.6-10.2 Chloride 101 mEq/L 94-112 Creatinine 0.8 mg/dL 0.6-1.4 Carbon Dioxide 27 mEq/L 21-32 Glucose 92 mg/dL 70-105 Sodium 139 mEq/L 134-149 Total Bilirubin 0.5 mg/dL 0.2-1.3 Total Protein 7.9 g/dL 6.3-8.1 Potassium 4.5 mEq/L 3.6-5.5 Globulin 2.9 g/dL 2.0-4.8 A/G Ratio 1.8 Calc 0.6-2.3 BUN/Creat Ratio 20.0 Calc 8.0-36.0 CBC Electronic (a) 10/23/2012 WBC 8.0 3.6-9.6 RBC 4.45 3.90-5.70 Hemoglobin (Fma/CMC/CTX) 13.5 g/dL 12.1 - 17.2 Hematocrit (Fma/CMC/CTX) 39.0 % 36.1 - 50.3 Platelets 248 10^3/ul 150-400 Lymph% 25.7 20.5-51.1 Mixed% 4.2 Neutrophils % 70.1 Mean Corpuscular Vol 88 82.2-97.4 Mean Corpuscular Hemoglobin 30.2 27.6-33.3 Mean Corpuscular Hemo Concen 34.5 32.0-36.0 RDW 11.8 11.6-13.7 Mean Platelet Volume 8.7 6.5-11.0 Anti Viral AB Screen 10/23/2012 HIV 1/O/2 Abs-Index Value <1.00 < 1.00 25, 31 HIV 1/O/2 Abs, Qual Non Reactive 25, 32 Laboratory test finding 10/23/2012 RPR NON-REACTIVE Non-Reactive 25 Hep B Surface Antigen NON-REACTIVE Non-Reactive 25 Hep C Abs 10/23/2012 Hep C Antibody NON-REACTIVE Non-Reactive 25 Hep C S/Co Ratio 0.1 0.0-0.7 25 Ua - Non Micro ([facility]) 09/25/2012 Appearance CLEAR Color YELLOW Glucose, Urine (Fma/CMC/CTX) NEG Bilirubin NEG Ketones NEG SP Grav 1.010 Blood NEG PH 7.0 Protein NEG Urobil 0.2 Nitrite NEG Leukocytes (Fma/CMC/Centrex) NEG Culture Stool 01/18/2012 M <SEE 33 NOTE> Laboratory test finding 01/13/2012 TSH 2.66 mIU/L 0.50-6.00 Free T4 0.96 ng/dL 0.75-1.54 Free T3 2.24 pg/mL 2.00-4.90 Comprehensive Metabolic Prof 01/13/2012 Albumin 4.6 g/dL 3.8-5.5 Alk. Phos. 89 U/L 30-110 Alt (SGPT) 10 U/L 7-35 Ast (Sgot) 14 U/L 5-34 BUN 12 mg/dL 6-26 Calcium 9.5 mg/dL 8.6-10.2 Chloride 100 mEq/L 94-112 Creatinine 1.0 mg/dL 0.6-1.4 Carbon Dioxide 24 mEq/L 21-32 Glucose 105 mg/dL 70-105 Sodium 135 mEq/L 134-149 Total Bilirubin 0.3 mg/dL 0.2-1.3 Total Protein 7.2 g/dL 6.3-8.1 Potassium 4.1 mEq/L 3.6-5.5 Globulin 2.6 g/dL 2.0-4.8 A/G Ratio 1.8 Calc 0.6-2.2 BUN/Creat Ratio 12.1 Calc 8.0-36.0 CBC Electronic ([facility]) 01/13/2012 WBC 8.8 3.6-9.6 RBC 4.20 3.90-5.70 Hemoglobin (Fma/CMC/CTX) 12.2 g/dL 12.1 - 17.2 Hematocrit (Fma/CMC/CTX) 37.5 % 36.1 - 50.3 Platelets 241 10^3/ul 150-400 Lymph% 24.5 20.5-51.1 Mixed% 4.4 Neutrophils % 71.1 Mean Corpuscular Vol 89.3 82.2-97.4 Mean Corpuscular Hemoglobin 29.0 27.6-33.3 Mean Corpuscular Hemo Concen 32.5 32.0-36.0 RDW 13.1 11.6-13.7 Mean Platelet Volume 11.0 6.5-11.0 CBC Electronic ([facility]) 09/05/2011 WBC 9.4 3.6-9.6 RBC 4.14 3.90-5.70 Hemoglobin (Fma/CMC/CTX) 12.1 g/dL 12.1 - 17.2 Hematocrit (Fma/CMC/CTX) 35.6 % Low 36.1 - 50.3 Platelets 215 10^3/ul 150-400 Lymph% 24.9 20.5-51.1 Mixed% 3.5 Neutrophils % 71.6 Mean Corpuscular Vol 86 82.2-97.4 Mean Corpuscular Hemoglobin 29.2 27.6-33.3 Mean Corpuscular Hemo Concen 34.1 32.0-36.0 RDW 13.7 11.6-13.7 Mean Platelet Volume 10.0 6.5-11.0 Laboratory test finding 09/05/2011 B12 523 pg/mL 230-1050 Basic Metabolic Profile 09/05/2011 BUN 11 mg/dL 6-26 Calcium 9.4 mg/dL 8.6-10.2 Chloride 106 mEq/L 94-112 Creatinine 0.7 mg/dL 0.6-1.4 Carbon Dioxide 23 mEq/L 21-32 Glucose 94 mg/dL 70-105 Sodium 137 mEq/L 134-149 Potassium 4.3 mEq/L 3.6-5.5 BUN/Creat Ratio 15.3 Calc 8.0-36.0 Laboratory test finding 09/05/2011 Folate 10.21 ng/mL 3.00-16.00 Free T3 2.37 pg/mL 2.00-4.90 Free T4 0.66 ng/dL Low 0.75-1.54 34 TSH 3.12 mIU/L 0.50-6.00 Lyme Igg/M W/RFX West 09/05/2011 Lyme IgG/IgM Ab <0.91 index 0.00- 0.90 35 Lyme Disease Ab, Quant, IgM <0.91 index 0.00-0.90 36 Laboratory test finding 09/05/2011 Vitamin D, 25 Oh 14.4 ng/mL Low 32.0- 100.0 37 Urinalysis 08/09/2011 Ua Color JACINTO Yellow Appearance-Urine CLEAR Clear Specific [place]-Ur 1.031 High 1.010-1.030 Esterase-Urine NEGATIVE Negative Nitrite NEGATIVE Negative [id number] NEGATIVE Negative Protein-Urine TRACE Negative PH-Urine 6.0 5-9 Blood-Urine NEGATIVE Negative Ketones-Urine TRACE Negative Bilirubin-Ur SEE ICTOTEST Negative Glucose-Urine NEGATIVE Negative Laboratory test finding 08/09/2011 Ictotest NEGATIVE 38 Comp Metabolic Panel 08/09/2011 Sodium 139 mmol/L 135-145 Potassium 3.5 mmol/L 3.5-5.0 Chloride 108 mmol/L 101-111 Co2 (Carbon Dioxide) 25.0 mmol/L 22-32 Anion Gap 6.0 mmol/L 2-11 39 Glucose 108 mg/dL High 70-100 BUN 12 mg/dL 6-24 Creatinine 0.8 mg/dL 0.50-1.40 One Over Creatinine 1.25 BUN/Creatinine Ratio 15.0 8-20 Calcium 8.3 mg/dL 8.1-9.9 Total Protein 6.3 GM/DL 6.2-8.1 Albumin 3.6 GM/DL 3.6-5.4 Globulin 2.7 GM/DL 2-4 Albumin/Globulin Ratio 1.3 1-3 Bilirubin Total 0.6 mg/dL 0.4-1.5 40 Alkaline Phosphatase 88 U/L 40-122 Alt (SGPT) 65 U/L High 14-54 Ast (Sgot) 65 U/L High 12-42 eGFR Non- 93.4 > 60 eGFR 120.1 > 60 41 CBC With Manual Diff 08/09/2011 White Blood Count 11.9 CUMM High 4.8-10.8 Red Cell Count 3.76 CUMM Low 4.2-5.4 Hemoglobin 11.1 g/dL Low 12.0-16.0 Hematocrit 32 % Low 35-47 Mean Corpuscular Volume 86 um3 79-97 Mean Corpuscular Hemoglob 30 pg 27-31 Mean Corpuscular HGB Cone 34 g/dL 32-36 Redcell Distribution WDTH 14 % 10.5-15 Platelet Count 185 CUMM 150-450 Mean Platelet Volume 11.6 um3 High 7.4-10.4 Polysegmented Neutrophil 76 % 38-83 Lymphocyte 19 % Low 25-47 Monocyte 5 % 0-13 Absolute Neutrophil Count 9.0 Elliptocyte FEW Laboratory test finding 08/09/2011 Lipase 43 U/L 22-51 (HCG) Serum NEGATIVE Negative 42 Laboratory test finding 07/28/2011 Clotest NEGATIVE Ua - Micro (Fma) 01/25/2011 Appearance SLT CLOUDY Color YELLOW Glucose NEG Bilirubin NEG Ketones NEG SP Grav >=1.030 Blood TRACE-LYSED PH 5.0 Protein NEG Urobil 0.2 Nitrite NEG Leukocytes (Fma/CMC/Centrex) TRACE Hyaline - /Lpf Granular - /Lpf WBC (Fma,Centrex) 3-5 RBC 1-3 Epith MANY /Lpf Bacteria 2+ /Hpf Z#Comments NOT A CC Laboratory test finding 01/25/2011 Free T4 0.93 ng/dL 0.75-1.54 TSH 2.28 mIU/L 0.50-6.00 Laboratory test finding 01/25/2011 Urine Culture (Fma/CMC) negative Laboratory test finding 07/14/2010 Quickstrep NEGATIVE Negative Throat - Beta Strep Fma NEG@48HRS Laboratory test finding 06/19/2009 Urine Culture No growth. 43 C-Reactive Protein 1.2 mg/dL High 0.0-0.5 43 Ua - Micro (Fma) 06/19/2009 Appearance CLOUDY Color YELLOW Glucose, Urine (Fma/CMC/CTX) NEG Bilirubin NEG Ketones NEG SP Grav 1.020 Blood TRACE-INTACT PH 6.0 Protein NEG Urobil 0.2 Nitrite NEG Leukocytes (Fma/CMC/Centrex) NEG Hyaline - /Lpf Granular - /Lpf WBC (Fma,Centrex) 3-5 RBC 3-5 Mucus (Fma/CBC/Centrex) SM AMT /Lpf Epith OCC /Lpf Bacteria 2+ /Hpf Amorphous (Fma/CMC/Centrex) - /Lpf Crystals, Fluid (Fma/CMC/CTX) - Z#Comments - CBC (a) 06/19/2009 WBC 10.9 High 3.6-9.6 RBC 4.72 3.90-5.70 Hemoglobin (Fma/CMC/CTX) 13.2 g/dL 12.1 - 17.2 Hematocrit (Fma/CMC/CTX) 41.7 % 36.1 - 50.3 Mean Corpuscular Vol 88.3 82.2-97.4 Mean Corpuscular Hemaglobin 28.0 27.6-33.3 Mean Corpuscular Hemo Concen 31.7 Low 33.0-36.0 Platelets 268 10^3/ul 150-400 Lymph% 32.0 20.5-51.1 Mixed% 9.1 Neutrophils % 58.9 RDW 13.6 11.6-13.7 Mean Platelet Volume 12.6 High 7.4-10.4 Urine (Fma) 06/19/2009 SP Grav 1.020 Urine, (Fma/CMC/CTX) NEGATIVE Comprehensive Metabolic Prof 06/19/2009 Albumin 4.7 g/dL 3.8-5.5 Alk. Phos. 107 U/L 30-110 Alt (SGPT) 19 U/L 7-35 Ast (Sgot) 21 U/L 5-34 BUN 11 mg/dL 6-26 Calcium 9.5 mg/dL 8.6-10.2 Chloride 102 mEq/L 94-112 Creatinine 0.9 mg/dL 0.6-1.4 Carbon Dioxide 27 mEq/L 21-32 Glucose 106 mg/dL High 70-105 Sodium 134 mEq/L 134-149 Total Bilirubin 0.3 mg/dL 0.2-1.3 Total Protein 7.8 g/dL 6.3-8.1 Potassium 4.4 mEq/L 3.6-5.5 Globulin 3.1 g/dL 2.0-4.8 A/G Ratio 1.5 Calc 0.6-2.2 BUN/Creat Ratio 12.3 Calc 8.0-36.0 Laboratory test finding 08/23/2005 Quickstrep NEGATIVE Negative Throat Culture NEGATIVE Ua - Micro ([facility]) 06/16/2002 Appearance CLEAR/YELLOW Glucose NEG Bilirubin NEG Ketones NEG SP Grav 1.020 Blood NEG PH 6.5 Protein NEG Urobil 1.0 Nitrite NEG Leukocytes TRACE Hyaline - /Lpf Granular - /Lpf WBC'S 20-30 RBC'S 0-1 Mucus SM AMT /Lpf Epith FEW RENAL Bacteria RARE Amorphous - /Lpf Crystals - /Lpf Comments - Ua - Micro ([facility]) 06/20/2001 Appearance CLEAR LT YELLOW Glucose NEGATIVE Bilirubin NEGATIVE Ketones NEGATIVE SP Grav 1.015 Blood NEGATIVE PH 7.5 Protein NEGATIVE Urobil 0.2 Nitrite NEGATIVE Leukocytes TRACE Hyaline - /Lpf Granular - /Lpf WBC'S 3-5 RBC'S 0-1 Mucus - /Lpf Epith FEW Bacteria RARE Amorphous SLT /Lpf Crystals - /Lpf Comments - Ua - Non Micro ([facility]) 07/07/2000 Appearance CLEAR YELLOW Glucose - Bilirubin - Ketones TRACE SP Grav >=1.030 Blood - PH 5.5 Protein - Urobil 0.2 Nitrite - Leukocytes SMALL Laboratory test finding 07/07/2000 Hematocrit 36 % 36.1 - 50.3 Ua - Non Micro ([facility]) 06/14/1999 Appearance CLEAR YELLOW SP Grav 1.025 Esterase NEGATIVE Nitrite NEGATIVE pH 6.0 Protein NEGATIVE Glucose NEGATIVE Ketones NEGATIVE Urobil NEGATIVE Bilirubin NEGATIVE Blood NEGATIVE 1 Bottom Saw Operator: [id number] 2 If is still suspected, please repeat test after 48 to 72 hours. This test detects intact HCG only and is indicated for the early detection of . 3 Reference Range and Interpretation: TnI (ng/mL) Interpretation Less Than 0.03 ng/mL Not supportive of diagnosis of [place] 0.03 - 0.50 ng/mL Indeterminate: suggest serial studies if clinically indicated. Greater than 0.5 ng/mL Consistent with diagnosis of [place] 4 Because ethnic data is not always readily available, this report includes an eGFR for both -Americans and non- Americans. The National Kidney Disease Education Program (NKDEP) does not endorse the use of the MDRD equation for patients that are not between the ages of 18 and 70, are , have extremes of body size, muscle mass, or nutritional status, or are non- or non-. According to the National Kidney Foundation, irrespective of diagnosis, the stage of the disease is based on the level of kidney function: Stage Description GFR(mL/min/1.73 m(2)) 1 Kidney damage with normal or decreased GFR 90 2 Kidney damage with mild decrease in GFR 60-89 3 Moderate decrease in GFR 30-59 4 Severe decrease in GFR 15-29 5 Kidney failure <15 (or dialysis) 5 Please note: The following may produce a false positive D Dimer test: - Rheumatoid factor greater than 60 IU/ml - Plasma hemoglobin greater than 0.05 gm/dl - Bilirubin greater than 50 mg/dl - Lipids greater than 1000 mg/dl - FDP greater than 20 ug/ml 6 Negative <36.0 Equivocal 36.0 - 43.9 Positive >43.9 7 Negative < 9.0 Equivocal 9.0 - 10.9 Positive >10.9 8 Negative <18.0 Equivocal 18.0 - 21.9 Positive >21.9 9 Negative <18.0 Equivocal 18.0 - 21.9 Positive >21.9 10 EBV Interpretation Chart Interpretation EBV-IgM VCA-IgG EBNA-IgG EA(D)-IgG EBV Seronegative - - - - Early Phase + - - - Acute Primary + + - +or- Infection Convalescence/Past - + + +or- Infection Reactivated +or- + + + Infection + Antibody Present - Antibody Absent 11 1 SST 12 Negative <0.9 Equivocal 0.9 - 1.0 Positive >1.0 13 Negative <0.9 Equivocal 0.9 - 1.0 Positive >1.0 14 Negative <0.9 Equivocal 0.9 - 1.0 Positive >1.0 15 Negative <0.9 Equivocal 0.9 - 1.0 Positive >1.0 16 Negative <0.9 Equivocal 0.9 - 1.0 Positive >1.0 17 Negative <0.9 Equivocal 0.9 - 1.0 Positive >1.0 18 EBV Interpretation Chart . Interpretation VCA-IgM EA-IgG VCA-IgG NA-ABS . Susceptible - - - - Acute Infection + +or- +or- - Convalescent Phase +or- +or- + + Chronic or Reactivated - + + +or- Old Infection - - +or- + + Antibody Present - Antibody Absent 19 N 20 If is still suspected, please repeat test after 48 to 72 hours. This test detects intact HCG only and is indicated for the early detection of . 21 Because ethnic data is not always readily available, this report includes an eGFR for both -Americans and non- Americans. The National Kidney Disease Education Program (NKDEP) does not endorse the use of the MDRD equation for patients that are not between the ages of 18 and 70, are , have extremes of body size, muscle mass, or nutritional status, or are non- or non-. According to the National Kidney Foundation, irrespective of diagnosis, the stage of the disease is based on the level of kidney function: Stage Description GFR(mL/min/1.73 m(2)) 1 Kidney damage with normal or decreased GFR 90 2 Kidney damage with mild decrease in GFR 60-89 3 Moderate decrease in GFR 30-59 4 Severe decrease in GFR 15-29 5 Kidney failure <15 (or dialysis) 22 RUN DATE: 03/08/13 [facility] LAB LIVE PAGE 1 RUN TIME: [address] [place] [id number] Specimen Inquiry Name: CHRISTA LUEVANO : [address]: Martín Yun MD Acct: [id number] Unit: [id number] AGE: 17 Location: ED Re03/08/13 SEX: F Status: REG ER SPEC: [id number] MARYANN: 03/08/[address]: Lashell ESTRADA REQ: [id number] RECD: 03/08/13 STATUS: RES OTHR DR: Martín Patel MD, MD _ SOURCE: THROAT SPDESC: ORDERED: Rapid Strep A, Throat Beta Str Procedure Result Verified Site Rapid Strep A Final 03/08/13- 2004 ML Rapid Strep A Negative for Group A Strep by enzyme immunoassay The baker operator automatic and regulatory agencies both recommend that a throat culture for beta strep be performed if a Rapid Group A Strep assay yields a negative result. Therefore a culture will be automatically performed on all negative samples. Throat Beta Strep Culture PENDING END OF REPORT * ML=Testing performed at Main Lab DEPARTMENT OF PATHOLOGY, [place] [employer] [place], [place] [address] Antonino Khan M.D. Director [facility] Permit #[id number] RUN DATE: 03/08/13 [facility] LAB LIVE PAGE 1 RUN TIME: [address] [place] [id number] Specimen Inquiry Name: CHRISTA LUEVANO : [address]: Martín Yun MD Acct: [id number] Unit: [id number] AGE: 17 Location: ED Re03/08/13 SEX: F Status: REG ER SPEC: [id number] MARYANN: 03/08/[address]: Lashell ESTRADA REQ: [id number] RECD: 03/08/13 STATUS: ML BROUSSARD DR: Jose Yun,MD Martín _ SOURCE: NASAL ASPI SPDESC: ORDERED: Rapid Flu A B Procedure Result Verified Site Rapid Influenza A B Antigen Final 03/08/132013 ML Influenza A Antigen Negative by Enzyme Immunoassay Influenza B Antigen Negative by Enzyme Immunoassay Cell culture testing can be performed to confirm negative test results and to assist in detecting other viruses that can produce similar clinical symptoms. Please notify [facility]biology [facility] if further testing is desired. END OF REPORT * ML=Testing performed at Main Lab DEPARTMENT OF PATHOLOGY, [address] [place] [address] Antonino Khan M.D. Director [facility] Permit #[id number] 24 RUN DATE: 03/10/13 [facility] LAB LIVE PAGE 1 RUN TIME: [address] [place] [id number] Specimen Inquiry Name: CHRISTA LUEVANO : [address]: Martín Yun MD Acct: [id number] Unit: [id number] AGE: 17 Location: ED Re03/08/13 SEX: F Status: DEP ER SPEC: [id number] MARYANN: 03/08/[address]: Lashell ESTRADA REQ: [id number] RECD: 03/08/13 STATUS: ML BROUSSARD DR: Martín Patel MD, MD _ SOURCE: THROAT SPDESC: ORDERED: Rapid Strep A, Throat Beta Str Procedure Result Verified Site Rapid Strep A Final 03/08/13- 2004 ML Rapid Strep A Negative for Group A Strep by enzyme immunoassay The baker operator automatic and regulatory agencies both recommend that a throat culture for beta strep be performed if a Rapid Group A Strep assay yields a negative result. Therefore a culture will be automatically performed on all negative samples. Throat Beta Strep Culture Final 03/10/13- 0845 ML Negative For Group A Beta Streptococcus END OF REPORT * ML=Testing performed at Main Lab DEPARTMENT OF PATHOLOGY, [address] [place] [address] Antonino Khan M.D. Director [facility] Permit #[id number] 25 FASTING; 3 SST'S; 1 APTIMA SWAB 26 Negative <0.91 Equivocal 0.91 - 1.09 Positive >1.09 27 Calculate total score by adding the 3 individual bacterial vaginosis (BV) marker scores together. Total score is interpreted as follows: . Total score 0-1: Indicates the absence of BV. Total score 2: Indeterminate for BV. Additional clinical data should be evaluated to establish a diagnosis. Total score 3-6: Indicates the presence of BV. . This test was developed and its performance characteristics determined by [employer]. It has not been cleared or approved by the Food and Drug Administration. The FDA has determined that such clearance or approval is not necessary. 28 This test was developed and its performance characteristics determined by [employer]. It has not been cleared or approved by the Food and Drug Administration. The FDA has determined that such clearance or approval is not necessary. 29 RESULT MARS'D 30 RESULT REC'D 31 Index Value: Specimen reactivity relative to the negative cutoff. 32 Negative: Non-reactive by ICMA Positive: Repeatedly reactive by ICMA. Refer to Western Blot confirmatory test for final interpretation. . Physician should vocational guidance counselor the patient about result significance. Patient information should be kept strictly confidential. 33 RUN DATE: 01/20/12 [facility] LIVE PAGE 1 RUN TIME: 1216 Specimen Inquiry RUN USER: INTERFACE Name: INGRIDMATTYCHRISTA ENRIQUE Status: REG REF Re01/18/12 Age/Sex: 16/F Unit#: [id number] Location: [facility] : 93 SPEC #: [id number] MARYANN: 01/18/12-1035 STATUS: COMP REQ #: [id number] RECD: 01/18/12-[address]: Mily Gunderson) SOURCE: STOOL ENTR: 01/18/12-[address] [facility] DR: [facility]: ORDERED: STOOL CULTURE, O P: ANDERSON/John KIRK DIFF AMP DNA, STL LACTOFERRIN ACT WKST: B 01/20/12 #1 Procedure Result Verified Site > STOOL CULT SENSITIVITY Final -1216 ML NEGATIVE FOR THE ENTERIC PATHOGENS - SALMONELLA, SHIGELLA, AEROMONAS, PLESIOMONAS AND YERSINIA. VIBRIO AND E. COLI 0157 NOT ROUTINELY TESTED FOR IN A STOOL CULTURE. PLEASE SUBMIT SAMPLE WITH SPECIFIC REQUEST FOR DESIRED ORGANISM(S). > STOOL SPECIMEN DESCRIPTION Final -1125 ML STOOL COLOR LIGHT BROWN STOOL FORM SEMI-FORMED STOOL CONSISTENCY SOFT > CAMPYLOBACTER CULTURE Final -1216 ML NO GROWTH OF CAMPYLOBACTER AFTER 48 HOURS > SHIGA TOXIN 1 AND 2 (EHEC) Final -1110 ML SHIGA TOXIN 1 NEGATIVE BY IMMUNOCHROMATOGRAPHIC ASSAY SHIGA TOXIN 2 NEGATIVE BY IMMUNOCHROMATOGRAPHIC ASSAY > O P: GIARDIA/CRYPTO SCREEN Final -1312 ML GIARDIA ANTIGEN NEGATIVE BY IMMUNOASSAY CRYPTOSPORIDIUM ANTIGEN NEGATIVE BY IMMUNOASSAY Giardia and cryptosporidium antigen testing performed by immunoassay. If patient is immunocompromised or has traveled to or is from a developing country, a full ova and parasite exam with microscopic (OPMIC) is recommended. All samples will be held one month in case full ova and parasite testing is requested. Contact the Microbiology Department at [phone]. TEST LIMITATIONS: As with all diagnostic procedures, the results obtained should be used in conjunction with other clinical information available the physician. Negative results can occur in samples containing antigen below lower limits of DEPARTMENT OF PATHOLOGY, [address] [place] [address] [facility] Permit #[id number] Hermelinda García M.D. Access Rn RUN DATE: 01/20/12 [facility] NMI LIVE PAGE 2 RUN TIME: 1216 Specimen Inquiry RUN USER: INTERFACE Name: CHRISTA LUEVANO Status: REG REF Re01/18/12 Age/Sex: 16/F Unit#: [id number] Location: [facility]. : 93 -- -- CONTINU ED Procedure Result Verified Site O P: GIARDIA/CRYPTO SCREEN Final (continued) 01/19/12- 1312 detection of the assay. The use of colonic washes, aspirates or other diluted sample types has not been established and could affect the performance of the assay. Stool samples contaminated with an oily or particulate base (eg. Barium, mineral oil etc.) could interfere with the test and are not recommended. > C. DIFFICILE AMPLIFIED DNA Final -1424 ML C. DIFFICILE AMPLIF DNA NEGATIVE: NO TOXIGENIC C. DIFFICILE DETECTED TEST LIMITATIONS: Assay does not distinguish between viable and non-viable organisms. Test results are to be used in conjunction with information available from the patient clinical evaluation and other diagnostic procedures. Two distinct groups have been identified that can harbor C. difficile asymptomatically at very high rates. Colonization at rates up to 50% and higher have been reported in infants and rates up to 32% in cystic fibrosis patients. > FECAL LACTOFERRIN (STOOL WBC) Final -1437 ML FECAL LACTOFERRIN NEGATIVE BY IMMUNOASSAY TEST LIMITATIONS: Assay detects elevated levels of lactoferrin released from fecal leukocytes as a marker of intestinal inflammation. The test may not be appropriate in immunocompromised persons. Fecal samples from breast fed infants should not be used with this assay. - [facility] Permit #[id number] [facility] [address] DEPARTMENT OF PATHOLOGY, [facility] [employer] [place] [address] [place] Permit #[id number] Antonino Khan M.D. Director [place] M.D. Access Rn 34 RESULT RECKD' 35 Negative <0.91 Equivocal 0.91 - 1.09 Positive >1.09 Note: The CDC currently advises that Western blot testing be performed following all equivocal or positive EIA results. Final diagnosis should include appropriate clinical findings and a positive EIA which is also positive by Western blot. 36 Negative <0.91 Equivocal 0.91 - 1.09 Positive >1.09 . Note: IgM levels may peak at 3-6 weeks post infection, then gradually decline. FDA currently advises that Western Blot testing be performed following all equivocal or positive EIA results. Final diagnosis should include appropriate clinical findings and a positive EIA which is also positive by Western Blot. 37 Effective September 11, 2011 Vitamin D, 25-Hydroxy reference intervals will be changing to 30-100. . Recent studies consider the lower limit of 32.0 ng/mL to be a threshold for optimal health. Jorge Luis BW. J Nutr. 2004;135(2):317-22. 38 ICTOTEST IS A QUALITATIVE CONFIRMATORY TEST FOR BILIRUBIN. 39 Anion gap measurement may be of limited value in the presence of any alkalosis, especially in a combined acid base disorder. . 40 A metabolite of Naproxen, O-desmethylnaproxen, has been shown to interfere with the Jendrassik-St. Xavier method for measuring total bilirubin. Samples from patients who have taken Naproxen have shown spurious elevation in total bilirubin levels. 41 Because ethnic data is not always readily available, this report includes an eGFR for both -Americans and non- Americans. The National Kidney Disease Education Program (NKDEP) does not endorse the use of the MDRD equation for patients that are not between the ages of 18 and 70, are , have extremes of body size, muscle mass, or nutritional status, or are non- or non-. According to the National Kidney Foundation, irrespective of diagnosis, the stage of the disease is based on the level of kidney function: Stage Description GFR(mL/min/1.73 m(2)) 1 Kidney damage with normal or decreased GFR 90 2 Kidney damage with mild decrease in GFR 60-89 3 Moderate decrease in GFR 30-59 4 Severe decrease in GFR 15-29 5 Kidney failure <15 (or dialysis) 42 If is still suspected, please repeat test after 48 to 72 hours. . This test detects intact HCG only and is indicated for the early detection of . 43 1SST,1BORITEX Procedures Date CPT Code Description Status 12/07/2014 44576 Electrocardiogram Complete Completed 09/25/2012 16964 Vision Test- screening test of visual acuity, Completed quantitative, bila 04/16/2012 32071 Pulse Oximetry Completed Encounters Type Date Location Provider CPT E/M Dx Office Visit 09/26/2017 5:30p [place] [address] F34.1 F43.12 F41.1 Office Visit 06/29/2017 10:30a Main Office Shelby Harrell [facility] [address] F41.1 F34.1 D48.5 Office Visit 05/08/2016 12:45p Main Office Shelby Harrell, [facility] 10789 J01.90 M54.5 Office Visit 03/31/2016 9:30a Main Office Shelby Harrell [facility] 19461 M79.672 Office Visit 01/10/2016 9:30a Main Office Shelby Harrell [employer] [address]3387 F41.1 F34.1 F43.12 Office Visit 01/20/2015 11:30a Main Office Shelby Harrell, [facility] 82794 840.9 848.49 719.43 Office Visit 01/11/2015 10:00a Main Office Shelby Harrell, [facility] 42558 300.00 311 Office Visit 12/07/2014 10:00a Northeast Office Jose Luke M.D. 46808 786.59 Office Visit 10/30/2014 1:15p Main Office Shelby Harrell [employer] 36602 300.00 311 Office Visit 09/14/2014 7:45p Main Office Shelby Harrell [facility] 10940 465.8 300.00 Office Visit 08/14/2014 9:30a Main Office Shelby Harrell [facility] 13271 300.00 780.52 847.1 Office Visit 07/08/2014 11:00a Main Office Shelby Julio Cesar, [facility] 25695 462 Office Visit 05/13/2014 9:30a Main Office Shelby Julio Cesar, [facility] 33270 300.00 Office Visit 04/17/2014 11:30a Northeast Office Jose Luke M.D. 65349 V74.1 Office Visit 04/10/2014 9:00a Main Office Shelby Julio Cesar, [facility] 59668 300.00 Office Visit 03/13/2014 10:00a Main Office Shelby Julio Cesar, [facility] 00703 300.00 Office Visit 02/20/2014 2:15p Main Office Shelby Julio Cesar, [facility] 64710 300.00 525.8 Office Visit 01/29/2014 4:30p Northeast Office Shelbyadelfo MontesJulio Cesar, [facility] 52502 845.09 Office Visit 10/20/2013 1:15p [place] [address] 686.9 789.02 Office Visit 07/07/2013 11:10a Main Office Valente Delaney M.D. 75007 461.9 Office Visit 06/26/2013 11:30a Main Office Leyda Little Afnp-C 77690 462 995.3 Office Visit 05/02/2013 2:30p Main Office Shelby Montesrer, [facility] 36806 461.0 Office Visit 03/13/2013 10:45a Northeast Office Shelbyadelfo MontesJulio Cesar, [facility] 36718 462 Office Visit 03/10/2013 7:00p Main Office Shelby Julio Cesar, [facility] 15014 462 Office Visit 10/23/2012 11:00a Main Office Shelby Julio Cesar, [facility] 26953 V65.49 Office Visit 09/25/2012 5:40p Main Office Jose Luke M.D. 13399 724.5 V70.0 V05.4 V04.89 V72.0 Office Visit 09/06/2012 3:00p Main Office Shelby Montesrer, [facility] 51915 461.9 Office Visit 07/05/2012 3:15p Main Office Shelby Julio Cesar, [employer] 78740 461.9 Office Visit 05/01/2012 2:30p Main Office Mily Jarquin, Afnp-C 65774 719.43 Office Visit 04/16/2012 3:10p Main Office Mikala Pizarro M.D. 69422 461.9 Office Visit 03/13/2012 1:00p Main Office Leyda Little [facility]np-C 12035 112.1 Office Visit 01/24/2012 4:15p Main Office Mily Jarquin, [facility]np[facility]C 90090 530.81 564.1 Office Visit 01/10/2012 6:00p Main Office Mily Jarquin, Afnp-C 81093 787.91 789.07 794.5 Office Visit 12/29/2011 1:00p Main Office Shelby Harrell, [facility] 11561 461.0 Office Visit 09/05/2011 11:30a Main Office Yolie Ruano M.D. 31279 782.0 268.9 523.01 Office Visit 07/01/2011 10:15a Main Office Leyda Little Afnp-C 96895 530.81 575.8 Office Visit 03/02/2011 3:15p Main Office Leyda Little, Afnp-C 32078 382.9 Office Visit 01/25/2011 10:00a Main Office Leyda Little Afnp-C 93797 V20.2 783.1 842.19 706.1 791.7 Office Visit 12/29/2010 10:00a Main Office Leyda Little Afnp-C 06842 842.19 V06.5 V05.8 V68.89 Office Visit 09/23/2010 8:20a Main Office Luis Reyes M.D. 88151 461.9 465.9 Office Visit 09/21/2010 10:15a Main Office Leyda Little Afnp-C 07536 465.8 Office Visit 07/14/2010 11:30a Northeast Office Deepa Mulligan, [address]13[address] 462 Hermelinda 388.70 Office Visit 11/24/2009 1:45p Main Office Leyda LittleAdelina-C 32567 381.01 Office Visit 06/23/2009 7:00p Main Office Herminia Coburn M.D. 65436 789.00 Office Visit 06/19/2009 11:10a Main Office Daniel Larry M.D. 43592 789.00 Office Visit 08/31/2008 2:30p Main Office Shelby Harrell [facility] 08566 078.12 Office Visit 02/10/2008 12:00p Main Office Luis Reyes M.D. 15078 920 921.2 Office Visit 09/07/2007 11:15a Main Office Leyda LittleAdelina-C 06986 381.01 Office Visit 12/22/2005 10:30a Main Office Shelby Harrell [employer] 11363 490 Office Visit 08/23/2005 10:30a Main Office Shelby Harrell [facility] 71315 465.9 462 Office Visit 01/30/2005 7:15p Main Office Shelby Harrell [facility] 18029 473.9 Office Visit 12/23/2002 10:10a Main Office Antonio Milton M.D. 54753 460 381.81 Office Visit 06/16/2002 1:00p Main Office Leyda LittleAdelina-C 49659 Office Visit 04/08/2002 8:30p Main Office Leyda LittleAdelina-C 45563 Office Visit 06/20/2001 1:45p Main Office Leyda LittleAdelina-C 09976 Office Visit 07/04/2000 6:00p Main Office Mily Milka Afreynold-C 48258 Plan of Care 11/19/2017 - Corrie Mg, NPZ12.4 Encounter for screening for malignant neoplasm of cervixComments:I performed a pap smear, I will call you with abnormal results or send you a letter with normal results.Z11.3 Encntr screen for infections w sexl mode of transmissNew Labs:RPR ([facility]/Fma)gc/chlam aptima urine ctxComments:I will call you if the results are positive otherwise, you will get a note in the mail or on portal for negative results.AllComments:~B _~U_Medication Management~b_~u_ Patient Understands medications she's taking? Yes No Are there Barriers to Adherence? Yes No Has the patient been asked about herbal supplements and therapies, and OTC meds? Yes No ~B_~U_Care Plan~b_~u_1. Patient has been queried about patient's goals/ preferences and functional/lifestyle goals at relevant visits. If relevant, describe: na2. Treatment goals as explained to the patient: above3. Are there barriers to meeting treatment goals? Yes No If Yes, please describe:4. Self-Management goals as described to the patient: Yes NoFollow up:As always, we strongly encourage a healthy diet and making physical activity a part of your every day life. If you have questions about how or where to start, please contact the office.
[2017-11-30 07:22] VITALS: BP 141/87
--- NOTE | 2017-11-30 07:29 | UC ---
FLU HPI - HPI Summary HPI Summary: 3 DAYS OF FATIGUE. YESTERDAY DEVELOPED BODY ACHES, CHILLS, SWEATS, N/V, COUGH. NO FLU SHOT THIS SEASON. - History of Current Complaint Chief Complaint: UCGeneralIllness Stated Complaint: FLU SYMPTOMS Time Seen by Provider: 11/30/17 07:21 Hx Obtained From: Patient Hx Last Menstrual Period: 08/31/17 Onset/Duration: Gradual Onset, Lasting Days, Still Present Severity Currently: Moderate Severity Initially: Moderate Pain Intensity: 7 Pain Scale Used: 0-10 Numeric Associated Signs & Symptoms: Positive: Myalgia, Cough, Nasal Congestion, Vomiting, Diarrhea - Allergy/Home Medications Allergies/Adverse Reactions: Allergies Allergy/AdvReac Type Severity Reaction Status Date / Time MS Penicillins [Penicillins] Allergy Severe Anaphylatic Verified 11/30/17 07:22 Shock MS Pertussis Immune Globulin Allergy Mild Agitation Verified 11/30/17 07:22 [Pertussis Immune Globulin] Home Medications: Home Medications Gabapentin CAP(*) [Neurontin 300 CAP(*)] 300 mg PO TID 11/30/17 [History Confirmed 11/30/17] metroNIDAZOLE [Flagyl 500 MG TAB] 500 mg PO BID 11/30/17 [History Confirmed 07/09] PMH/Surg Hx/FS Hx/Imm Hx Psychological History: Anxiety, Depression - Surgical History Surgical History: Yes Surgery Procedure, Year, and Place: [place]IL[place]AL [place]OT[place] E[place] [facility] [place]OSCOPIC [place]LE[place] [facility] [place] RIGHT WRIST [place], [facility] [place]. [place] 3 IMPACTED WISDOM TEETH EXTRACTION, [facility]. 2014 RIGHT WRIST ARTHROSCOPIC [place] [facility] [place] - Family History Known Family History: Positive: Diabetes Negative: Hypertension - Social History Alcohol Use: None Substance Use Type: None Smoking Status (MU): Never Smoked Tobacco Have You Smoked in the Last Year: No Household Exposure Type: Cigarettes - Immunization History Most Recent Influenza Vaccination: unknown Review of Systems Constitutional: Chills, Fatigue ENT: Nasal Discharge Respiratory: Cough Cardiovascular: Negative Gastrointestinal: Vomiting, Diarrhea, Nausea Musculoskeletal: Myalgia All Other Systems Reviewed And Are Negative: Yes Physical Exam Triage Information Reviewed: Yes Appearance: No Pain Distress, Well-Nourished, Ill-Appearing - MILD Vital Signs: Initial Vital Signs Temp 99.5 F 11/30/17 07:17 Pulse 96 11/30/17 07:17 Resp 20 11/30/17 07:17 BP 141/87 11/30/17 07:17 Pulse Ox 97 11/30/17 07:17 Vital Signs Reviewed: Yes Eyes: Positive: Conjunctiva Clear ENT: Positive: Hearing grossly normal, Pharynx normal, TMs normal - FLUID BEHIND RIGHT TM Neck: Positive: Supple, Nontender, No Lymphadenopathy Respiratory Exam: Normal Cardiovascular: Positive: Tachycardia Abdomen Description: Positive: Soft Musculoskeletal: Positive: No Edema Neurological: Positive: Alert Psychological: Positive: Age Appropriate Behavior Skin: Negative: rashes Diagnostics - Laboratory Diagnostic Studies Completed/Ordered: FLU SWAB NEGATIVE Flu Course/Dx - Differential Dx/Diagnosis Provider Diagnoses: ACUTE VIRAL SYNDROME Discharge - Discharge Plan Condition: Stable Disposition: HOME Patient Education Materials: Viral Syndrome (ED) Forms: *Work Release Referrals: Jose Luke MD [Primary Care Provider] - If Needed Additional Instructions: FLU SWAB NEGATIVE. YOUR SYMPTOMS ARE LIKELY VIRALLY MEDIATED AND SHOULD RESOLVE ON THEIR OWN WITH TIME. REST, HYDRATE, OTC MEDS NEEDED. SEEK FOLLOW-UP IF YOU ARE NOT IMPROVING OVER THE NEXT 1-2 WEEKS.
== END 2017-11-30 07:44 | disposition home or self-care (01) ==
LOC: UCEAST 07:07
DX: B34.9 Viral infection, unspecified (principal); Z88.0 Allergy status to penicillin; F41.9 Anxiety disorder, unspecified; F32.9 Major depressive disorder, single episode, unspecified; Z90.49 Acquired absence of other specified parts of digestive tract; Z88.7 Allergy status to serum and vaccine; Z77.22 Contact with and (suspected) exposure to environmental tobacco smoke (acute) (chronic)
CPT/HCPCS: 87502; 99211; G0463

== ENCOUNTER 2018-06-07 18:14 | Emergency (ER) | payer BC ==
--- OUTSIDE RECORDS SUMMARY | 2018-06-07 18:59 | XMS REPORT ---
:1995 External Reference #:[id number] Author Organization [facility] Address [address] [place] [address] Phone [phone] Care Team Providers Name Role Phone Jose Luke MD Care Team Information Manager Banquet Unavailable Jose Luke MD Primary Care Physician Unavailable Payers Type Date Identification Numbers Payment Provider Subscriber Commercial Effective: Policy Number: BC/BS Of KRISTOFER Luevano 2015 [id number] PayID: [id number] [id number] [place] [id number] Problems Date Description Provider Status Onset: 09/11/2011 Gastroesophageal reflux disease Ashely Tapia Active Onset: 04/16/2012 Acute sinusitis Mikala Pizarro M.D. Active Family History Date Family Member(s) Problem(s) Comments Number of Siblings Siblings: 3 Maternal Grandmother 55, DM, DVT Social History Type Date Description Comments Living Situation Lives with girlfriend in her apartment Occupation [employer] Going to school at [employer] for her BS, wants to go on to her masters in social work Employment going to [employer] Cigarette Use Nonsmoker ETOH Use Rare Recreational Drug Use Denies Drug Use Smoking Patient has never smoked Daily Caffeine Consumes on average 2 cups of coffee per day Additional Info Sexual preference is women Allergies, Adverse Reactions, Alerts Date Description Reaction Status Severity Comments Penicillin active 12/29/2010 Pertussis active Medications Medication Date Status Form Strength Qnty SIG Indications Ordering Provider Gabapentin 05/10/ Active Capsules 100mg 120cap take 2 F41.1 Corrie Miracle 2018 s tablets in Mg, the morning [employer] and 2 in the afternoon as needed Zyrtec 04/17/ Active Tablets 10mg 30tabs take one J01.90 Corrie Rausch Allergy 2018 tablet per Saurav, day [employer] Nasonex 02/05/ Active Suspension 50mcg/Act 17unit Instill 1 J01.90 Corrie Rausch 2018 s [place] Per Saurav, Nostril [employer] Daily Sertraline 06/29/ Active Tablets 50mg 135tab take 1 and F41.1 Deepa HCL 2017 s 1/2 tab by Kaiden mouth every SPECIAL EDUCATOR day F34.1 Bupropion HCL 06/29/2017 Active Tablets ER 150mg 180tabs 2 By F41.1 Meme C. ER (XL) 24HR Mouth KYLIE Alvarado Every Day F34.1 Flagyl 11/27/ Hx Tablets 500mg 14tabs 1 by mouth Corrie Rausch 2018 - twice a day x KYLIE Mg 02/04/ 7d 2018 Gabapentin 09/26/ Hx Capsules 300mg 360cap take one F41.1 Deepa 2016 - s capsule by Kaiden, SPECIAL EDUCATOR 05/10/ mouth 3 times 2018 a day as needed for anxiety, may take 2 caps at bedtime Cyclobenzaprine HCL 05/08/ Hx Tablets 10mg 30tabs take one M54.5 Shelby Harrell 2015 - tablet by SPECIAL EDUCATOR 06/29/ mouth at hs 2017 as needed muscle spasm Clonazepam 05/08/ Hx Tablets 0.5mg 90tabs take one F41.1 Shelby Harrell 2015 - tablet three SPECIAL EDUCATOR 06/ times a day as 2017 needed anxiety Azithromycin 05/08/ Hx Tablets 250mg 12tabs take 2 tablets J01.90 Shelby Harrell, 2015 - by mouth x 3d SPECIAL EDUCATOR 06/29/ then take 1 2017 tablet daily for next 6 days [employer]irc[employer] Sport Brace 03/31/ Hx Medium 1units wear during M79.67 Shelby Harrell, Left 2016 - the day 2 SPECIAL EDUCATOR 2015 Note For Work 03/31/ Hx Christa was M79.67 Shelby Harrell 2015 - seen by me 2 SPECIAL EDUCATOR 05/08/ and february 2016 return to work on Sunday, 6\\13\\16 Tramadol HCL 03/31/ Hx Tablets 50mg 60tabs 1 every 8h as M54.5 Shelby Harrell 2015 - needed pain SPECIAL EDUCATOR 2016 A[employer] Sport Ankle 03/31/ Hx Misc 1units Wear during M79.67 Shelby Harrell Brace/Right 2015 - the day until 2 SPECIAL EDUCATOR 05/09/ sx resolve 2015 Clonazepam 01/09/ Hx Tablets 0.5mg 60tabs take one F41.1 Shelby Harrell 2015 - tablet twice a SPECIAL EDUCATOR 03/31/ day as needed 2015 anxiety Azithromycin 04/03/ Hx Tablets 250mg 6tabs take 2 tablets Shelby Harrell 2014 - by mouth today SPECIAL EDUCATOR 10/23/ then take 1 2016 tablet daily for next 4 days Physical Therapy 01/20/ Hx evaluate and 840.9 Shelby Harrell 2014 - treat shouder SPECIAL EDUCATOR 10/23/ strain 2016 Tramadol HCL 01/20/ Hx Tablets 50mg 40tabs 1 every 8h as 840.9 Shelby Harrell 2014 - needed pain SPECIAL EDUCATOR 2015 Celecoxib 12/07/ Hx Capsules 200mg 30caps Take 1 capsule Jose Mills 2014 - by mouth daily Hermelinda Luke 10/23/ linnette 2015 Clonazepam 10/30/ Hx Tablets 0.5mg 45tabs take one 300.00 Shelby Harrell 2014 - tablet twice a [facility] 10/23/ day as needed 2015 anxiety Zithromax 09/14/ Hx Tablets 250mg 6Tabs 2 by mouth 465.8 Shelby Harrell, 2013 - every day SPECIAL EDUCATOR 10/30/ , then 1 2014 by mouth every day times 4 Zoloft 08/14/ Hx Tablets 100mg 60tabs 1 by mouth F41.1 Shelby Harrell, 2013 - every day SPECIAL EDUCATOR 2015 F34.1 F43.12 Bupropion HCL 08/14/2014 - Hx Tablets ER 150mg 30tabs 1 by mouth F41.1 Shelby ER (XL) 03/31/2016 24HR every Julio Cesar, [facility] morning F34.1 Amitriptyline 08/14/2014 - Hx Tablets 10mg 60tabs take 1 to 2 780.52 Shelby HCL 10/23/2015 tablets by Julio Cesar, mouth at [facility] bedtime Metaxalone 08/14/2014 - Hx Tablets 800mg 45tabs 1 by mouth 847.1 Shelby 10/23/2015 every 8h as Julio Cesar, needed SPECIAL EDUCATOR muscle spasm Physical Therapy 08/14/2014 - Hx evaluate 847.1 Shelby 12/07/2014 and treat Julio Cesar, cervical SPECIAL EDUCATOR and thoracic strain Alprazolam 04/10/2014 - Hx Tablets 0.5mg 45tabs 1 by mouth 300.00 Shelby 10/30/2014 twice a day Julio Cesar, SPECIAL EDUCATOR Zoloft 04/10/2014 - Hx Tablets 50mg 30tabs 1 po qd 300.00 Shelby 08/14/2014 Julio Cesar, SPECIAL EDUCATOR Alprazolam 02/20/2014 - Hx Tablets 0.25mg 45tabs 1 bid prn 300.00 Shelby 04/10/2014 anxiety Julio Cesar, SPECIAL EDUCATOR Hydrocodone/Acet 02/20/2014 - Hx Tablets 5-325mg 60tabs 1-2 po q 8 525.8 Shelby aminophen 04/10/2014 prn Julio Cesar, SPECIAL EDUCATOR Bupropion HCL XL 02/20/2014 - Hx Tablets ER 150mg 30tabs 1 by mouth 300.00 Shelby 08/14/2014 24HR every day Julio Cesar, SPECIAL EDUCATOR Naproxen 02/20/2014 - Hx Tablets 500mg 60tabs Take One 525.8 Shelby 12/07/2014 Tablet By Julio Cesar, Mouth Every SPECIAL EDUCATOR 12 Hours With Food 847.1 Canvas Lace Up 01/29/2014 - Hx Wear during 845.09 Shelby Left Ankle Brace 04/10/2014 the day until Julio Cesar, the pain SPECIAL EDUCATOR resolves Nystatin/Triamci 10/20/2013 - Hx Cream 1000 30gm apply to 686.9 Robyn nolone 01/29/2014 00-0 affected area Brown, [employer] .1Un bid x 7 days it/G or until M-% clear Levofloxacin 07/07/2013 - Hx Tablets 500m 10tabs 1 by mouth 461.9 Valente Delaney, 10/20/2013 g every day for M.D. 10 days Excuse For 07/07/2013 - Hx pt seen in 461.9 Valente Delaney, [facility] 10/20/2013 office today M.D. please excuse Loratadine 06/26/2013 - Hx Tablets 10mg 30tabs 1 po qd 995.3 Leyda 02/20/2014 Ashely Little Clarithromycin 05/02/2013 - Hx Tablets 500m 20tabs take 1 tablet 461.0 Shelby 06/26/2013 g by mouth Julio Cesar, every 12 SPECIAL EDUCATOR hours Note Due To 03/13/2013 - Hx Josalenn was 462 Shelby Health Issues 05/02/2013 see by me Julio Cesar, again and february SPECIAL EDUCATOR return to work on Sunday, \\\\13. Hydrocodone/Acet 03/10/2013 - Hx Tablets 5-32 40tabs 1-2 po q 8 462 Shelby aminophen 05/02/2013 5mg prn Julio Cesar, SPECIAL EDUCATOR Prednisone 03/10/2013 - Hx Tablets 20mg 10tabs 1 bid x 5d 462 Shelby 05/02/2013 Julio Cesar, SPECIAL EDUCATOR Naproxen 01/25/2013 - Hx Tablets 250m 20tabs 1-2 po bid 462 Jose F. 02/20/2014 g prn amita Luke M.D. Bactrim DS 01/25/2013 - Hx Tablets 800- 20tabs 1 po bid x 10 Yolie L. 03/10/2013 160m mulugeta Ruano M.D. No Active 09/06/2012 - Hx Unknown Medications 09/06/2012 Azithromycin 09/06/2012 - Hx Tablets 250m 12tabs take 2 461.9 Shelby 09/25/2012 g tablets by Julio Cesar, mouth x 3d SPECIAL EDUCATOR then take 1 tablet daily for next 6 days Robitussin A-C 09/06/2012 - Hx 120cc 1-2 tsp po 461.9 Shelby 09/25/2012 q4h prn cough Julio Cesar, SPECIAL EDUCATOR Note Due To 09/06/2012 - Hx Josalenn was 461.9 Shelby Health Issues 09/25/2012 seen by me Harrell, today for SPECIAL EDUCATOR illness and was unable to go to class, february return on Sunday, \\ Cholestyramine 09/06/2012 - Hx Packet 4gm 60units Mix One Shelby 05/08/2016 Packet In Julio Cesar, Clear Liquid SPECIAL EDUCATOR And Drink It Twice Daily Azithromycin 07/05/2012 - Hx Tablets 250m 12tabs take 2 461.9 Shelby 09/06/2012 g tablets by Julio Cesar, mouth x 3d SPECIAL EDUCATOR then take 1 tablet daily for next 6 days Note For School 07/05/2012 - Hx Please excuse 461.9 Shelby 09/06/2012 [place] Harrell today SPECIAL EDUCATOR due to illness Work Note 05/01/2012 - Hx seen in this 719.43 Mily 07/05/2012 office ok for Milka, work return, Afnp-C no lifting more than 5 lbs. Naproxen 05/01/2012 - Hx Tablets 500m 30tabs 1 po bid prn 719.43 Mily 07/05/2012 g pain Milka, Afnp-C take with food Levofloxacin 04/16/2012 - Hx Tablets 750m 5tabs 1 po qd Mikala Arriaga 05/01/2012 mulugeta Pizarro M.D. Fluconazole 03/13/2012 - Hx Tablets 150m 2tabs 1 po ; february 112.1 Leyda 04/16/2012 g repeat in 5-7 Anabelmichelle-Maya Mycolog-II 03/13/2012 - Hx Cream 30gm apply bid to 112.1 Leyda 05/01/2012 affected area Adelina Little-Maya Zithromax 10/16/2011 - Hx Tablets 250m 6Tabs 2 po qd today 382.9 Yolie Swenson 12/29/2011 g , then 1 po Alden, qd times 4 M.D. Vitamin D 09/18/2011 - Hx 50,0 8units 1 po weekly x Yolie Swenson 12/29/2011 00Un 8 weeks. katt Ruano M.D. Omeprazole 09/05/2011 - Hx Capsules DR 20mg 60caps 2 po qd Mily 05/01/2012 Adelina Jarquin-C Azithromycin 09/05/2011 - Hx Tablets 250m 12tabs take 2 461.0 Shelby 01/10/2012 g tablets by Julio Cesar mouth x 3d SPECIAL EDUCATOR then take 1 tablet daily for next 6 days Note For School 09/05/2011 - Hx Christa was 461.0 Shelby 01/10/2012 seen by me Harrell today for SPECIAL EDUCATOR illness, missed classes this due to this illness Zithromax 03/02/2011 - Hx Tablets 250m 6Tabs 2 po qd today 382.9 Leyda 07/01/2011 g , then 1 po Anabel, qd times 4 Afnp-C Physical Therapy 01/25/2011 - Hx treatment and 842.19 Leyda 02/03/2011 evaluation of Anabel right Afnp-C wrist/thumb sprain Minocin 01/25/2011 - Hx Capsules 100m 60caps 1 po bid 706.1 Leyda 07/01/2011 g Anabel, Afnp-C Gym Excuse 12/29/2010 - Hx no gym [...] Hx unable to Luis T. 12/29/2010 participate Amy, in swimming M.D. due to chlorine sensitivity Nasonex 07/14/2010 - Hx Suspension 50mc Samples 2 puffs qd Deepa 12/29/2010 g/Samir Ventura M.D. Out Of Work 07/14/2010 - Hx pt to be out Deepa 09/21/2010 of work octavio and Jonah 07/15/10 for M.D. medical condition Fluconazole 06/19/2009 - Hx Tablets 150m 1tabs one tab po 789.00 Sanchez A. 07/02/2010 g otoniel Larry M.D. Note Due To 08/31/2008 - Hx josalenn was 078.12 Shelby Health Issues 11/24/2009 seen by me Harrell, today for A SPECIAL EDUCATOR planatr wart and may not participate in swimming, referred to A specialist ssi-12 12/22/2005 - Hx Suspension 30mg 120ml 1 tsp bid 490 Shelby 09/07/2007 ;4 Julio Cesar, mg/5 SPECIAL EDUCATOR ML Robitussin ac 12/22/2005 - Hx 4Oz 1-2 tsp po 490 Shelby 09/07/2007 q4h prn cough Julio Cesar, SPECIAL EDUCATOR Ees 01/30/2005 - Hx 400m 30units 1 tid Shelby 08/23/2005 g Julio Cesar, SPECIAL EDUCATOR Biaxin 12/23/2002 - Hx 125m 150cc 1 [...] Hx Tablets 1 po q6h Unknown 02/20/2014 Multivitamin - Hx Tablets 1 po qd Unknown Adults 02/04/2018 Vitamin C - Hx Tablets 500m take one Unknown 02/04/2018 g every day Medications Administered in Office Medication Date Status Form Strength Qnty SIG Indications Ordering Provider TB Intradermal Administered Injection Jose Pimentel 014 Shallish, M.D. TB Intradermal Administered Injection Unknown Test 994 TB Intradermal Administered Injection Unknown Test 993 Immunizations CPT Code Status Date Vaccine Lot # [id number] Given 02/25/2013 Gardasil vacine typs 6,11,16,18 3 dose schedule [id number] 64488 Given 09/25/2012 Varicella (Chicken Pox) Immunization [id number] 53888 Given 09/25/2012 Gardasil vacine typs 6,11,16,18 3 dose schedule [id number] 34840 Given 12/29/2010 Meningococcal Conjugate Vaccine,Serogroups For [id number] Intramuscular Use 89498 Given 12/29/2010 Tetanus And Diptheria Adult Preservative Free [id number] >7Yrs 46203 Given 10/06/2009 H1N1 Virus Vaccine [id number] 70853 Given 10/06/2009 H1N1 Immunization Intramuscular/Intranasal W Counseling 52461 Given 07/07/2009 DO Not Use Split Influenza Virus Vaccine [id number] 97683 Given 08/22/2003 DT Immunization 34338 Given 04/07/1998 Oral Poliovirus Immunization 80605 Given 04/07/1998 MMR Virus Immunization 01837 Given 04/07/1998 DT Immunization 61175 Given 12/02/1997 Hepatitis B Immunization, -19 Years 28346 Given 07/17/1997 Hepatitis B Immunization, -19 Years 24972 Given 06/16/1997 Hepatitis B Immunization, -19 Years 27376 Given 11/09/1994 (IPV) Inactive Poliovirus Vaccine 79073 Given 11/09/1994 MMR Virus Immunization 92965 Given 11/09/1994 DT Immunization 54575 Given 11/09/1994 (Hib) Hemoplilus Influenza B 17492 Given 1993 (IPV) Inactive Poliovirus Vaccine 85369 Given 1993 DT Immunization 88382 Given 1993 (IPV) Inactive Poliovirus Vaccine 67679 Given 1993 DT Immunization 91904 Given 1993 (IPV) Inactive Poliovirus Vaccine 13937 Given 1993 DT Immunization Vital Signs Date Vital Result Comment 05/10/2018 BP Systolic 118 mmHg BP Diastolic 68 mmHg Heart Rate 76 /min Body Temperature 98.1 F Respiratory Rate 16 /min Height 67.5 inches 5'7.50" Weight 273.00 lb BMI (Body Mass Index) 42.1 kg/m2 02/05/2018 BP Systolic 120 mmHg BP Diastolic 80 mmHg Heart Rate 90 /min Body Temperature 98.7 F Height 67.5 inches 5'7.50" Weight 259.00 lb BMI (Body Mass Index) 40.0 kg/m2 11/19/2017 BP Systolic 118 mmHg BP Diastolic [...] Test Date Test Result H/L Range Note Urine (Fma) 05/10/2018 SP Grav 1.025 Urine, ([facility]CTX) POSITIVE Rapid Influenza A & B 11/30/2017 Influenza A Molecular NEGATIVE Negative 1 Molecular Influenza B Molecular NEGATIVE Negative Laboratory test finding 11/19/2017 PDF [id number] SEE IMAGE Vaginitis Plus Nuswab 11/19/2017 Atopobium vaginae High - 2 Score 2 Bvab 2 Low - 0 Score 2 Megasphaera 1 High - 2 Score 2, 3 Noemi albicans, Darline Negative Negative 2 Noemi glabrata, Darline Negative Negative 2, 4 Trich vag by Darline Negative Negative 2 Chlamydia trachomatis, Darline Negative Negative 2 Neisseria gonorrhoeae, Darline Negative Negative 2 Age 0111/19/2017 Age 21-25 Diagn See Comment: 5 Adeq See Comment: 6 [email or web address] See Comment: 7 Perfor See Comment: 8 Comm . Note See Comment: 9 Iglbp See Comment: 10 Reflex See Comment: 11 Chlamydia, Nuc. Acid Amp Negative Negative Gonococcus, Nuc. Acid Amp Negative Negative Laboratory test finding 09/22/2017 Rapid Strep Molecular Negative Negative 12 Laboratory test finding 09/21/2015 Urine Negative Negative 13 Laboratory test finding 12/04/2014 Troponin I 0.00 ng/mL <0.03 14 CBC Auto Diff 12/04/2014 White Blood Count [...] Egfr Non- 88.0 >60 Egfr 113.2 >60 15 Laboratory test 12/04/2014 D Dimer Quantitative < 200 ng/mL Less Than 230 16 finding Laboratory test 07/08/2014 Quickstrep NEGATIVE Negative finding Throat - Beta Strep Fma NEG @ 48HRS Ebv Acute Infection Abs 07/08/2014 Ebv Ab Vca, IgM <36.0 U/mL 0.0-35.9 17 Ebv Early Antigen Ab, IgG <9.0 U/mL 0.0-8.9 18 Ebv Ab Vca, IgG 145.0 U/mL High 0.0-17.9 19 Ebv Nuclear Antigen Ab, IgG 167.0 U/mL High 0.0-17.9 20 Interpretation: SEE NOTE 21 CBC Electronic ([facility]) 10/20/2013 WBC 7.8 3.6-9.6 RBC 4.23 3.90-5.70 [...] test finding 10/20/2013 Lipase 38 U/L 1-64 22 Laboratory test finding 10/20/2013 Amylase 36 U/L 20-105 Laboratory test finding 06/26/2013 Quickstrep NEGATIVE Negative Throat - Beta Strep Fma neg@48hrs Ebv Acute Infection Abs 03/10/2013 Ebv Ab Vca, IgM 0.4 AI 0.0-0.8 23 Ebv Early Antigen Ab, IgG <0.2 AI 0.0-0.8 24 Ebv Ab Vca, IgG 7.7 AI High 0.0-0.8 25 Ebv Nuclear Antigen Ab, IgG >8.0 AI High 0.0-0.8 26 Interpretation: SEE NOTE 27 CMV Abs Igg/Igm 03/10/2013 CMV Ab, IgG (Cytomegalovirus) <0.9 index 0.0- 0.8 28 CMV Ab, IgM Cytomegalovirus <0.9 index 0.0-0.8 29 Urinalysis 03/09/2013 Urine Color Yellow Urine Appearance Clear Urine Specific [place] 1.025 1.010-1.030 Urine Esterase Negative Negative Urine Nitrate Negative Negative Urine Urobilinogen Negative E.U./dL Negative Urine Protein 1+ mg/dL Negative Urine pH 6.0 5-9 Urine Blood Trace Negative Urine Ketones Negative mg/dL Negative Urine Bilirubin Negative Negative Urine Glucose Negative mg/dL Negative Laboratory test finding 03/09/2013 Monospot Negative Negative 30 Comp Metabolic Panel 03/09/2013 Sodium 140 mmol/L [...] Egfr Non- 92.4 >60 Egfr 118.8 >60 31 CBC Auto Diff 03/09/2013 White Blood Count [...] 0-2 Nucleated Red Blood Cells % 0.1 Urine Microscopic 03/09/2013 Urine WBC 1+ (<10 /hpf) None Seen Urine RBC None Seen None Seen Urine Mucus Present /lpf Absent Urine Epithelial Cells 1+ Squamous /hpf None Seen Bacteria Urine 2+ None Seen Crystals Urine Amorphous /lpf None Seen Laboratory test finding 03/09/2013 Urine Negative Negative 32 Laboratory test finding 03/08/2013 Rapid Influenza A B (SEE NOTE) 33 Antigen Throat Beta Strep Culture (SEE NOTE) 34 Urinalysis 03/08/2013 Urine Color Yellow Urine Appearance Clear Urine Specific [place] 1.025 1.010-1.030 Urine Esterase Negative Negative Urine Nitrate Negative Negative Urine Urobilinogen Negative E.U./dL Negative Urine Protein Trace mg/dL Negative Urine pH 5.5 5-9 Urine Blood Negative Negative Urine Ketones Negative mg/dL Negative Urine Bilirubin Negative Negative Urine Glucose Negative mg/dL Negative Rapid Strep A 03/08/2013 Rapid Strep A (SEE NOTE) 35 Hep C Abs 10/23/2012 Hep C Antibody NON-REACTIVE Non-Reactive 36 Hep C S/Co Ratio 0.1 0.0-0.7 36 HSV Igm I/II 10/23/2012 HSV, IgM I/II <0.91 Ratio 0.00-0.90 36, 37 Combination Combination Nuswab Vaginitis Plus 10/23/2012 Atopobium vaginae 0 (Low) Score 36 Bvab 2 0 (Low) Score 36 Megasphaera 1 0 (Low) Score 36, 38 Noemi albicans, Darline Negative Negative 36 Noemi glabrata, Darline Negative Negative 36, 39 Trich vag by Darline Negative Negative 36 Chlamydia trachomatis, Darline Negative Negative 36 Neisseria gonorrhoeae, Darline Negative Negative 36 Laboratory test finding 10/23/2012 TSH 1.68 mIU/L 0.50-6.00 Lipid Profile 10/23/2012 Cholesterol 158 mg/dL 120-200 HDL 48 mg/dL 30-85 Triglycerides 100 mg/dL 30-200 HDL Risk Factor 3.3 CALC 0.0-4.4 LDL (Calculated) 90 CALC 0-129 VLDL (Calculated) 20 mg/dL 0-50 Comprehensive Metabolic Prof 10/23/2012 Albumin 5.1 g/dL 3.8-5.5 Alk. Phos. 133 U/L High 30-110 40 Alt (SGPT) 42 U/L High 7-35 41 Ast (Sgot) 32 U/L 5-34 BUN 16 [...] BUN/Creat Ratio 20.0 Calc 8.0-36.0 CBC Electronic (Fma) 10/23/2012 WBC 8.0 3.6-9.6 RBC 4.45 3.90-5.70 [...] Screen 10/23/2012 HIV 1/O/2 Abs-Index Value <1.00 <1.00 36 , 42 HIV 1/O/2 Abs, Qual Non Reactive 36, 43 Laboratory test finding 10/23/2012 RPR NON-REACTIVE Non-Reactive 36 Hep B Surface Antigen NON-REACTIVE Non-Reactive 36 Ua - Non Micro (Fma) 09/25/2012 Appearance CLEAR Color YELLOW Glucose, Urine (Fma/CMC/CTX) NEG Bilirubin NEG Ketones NEG SP Grav 1.010 Blood NEG PH 7.0 Protein NEG Urobil 0.2 Nitrite NEG Leukocytes (Fma/CMC/[facility]) NEG Culture Stool 01/18/2012 M <SEE NOTE> 44 Laboratory test finding 01/13/2012 TSH 2.66 mIU/L [...] BUN/Creat Ratio 12.1 Calc 8.0-36.0 CBC Electronic ([facility]) 01/13/2012 WBC 8.8 3.6-9.6 RBC 4.20 3.90-5.70 Hemoglobin (Fma/CMC/CTX) 12.2 g/dL 12.1 - 17.2 Hematocrit (Fma/CMC/CTX) 37.5 % 36.1 - 50.3 Platelets 241 10^3/ul 150-400 Lymph% 24.5 20.5-51.1 Mixed% 4.4 Neutrophils % 71.1 Mean Corpuscular Vol 89.3 82.2-97.4 Mean Corpuscular Hemoglobin 29.0 27.6-33.3 Mean Corpuscular Hemo Concen 32.5 32.0-36.0 RDW 13.1 11.6-13.7 Mean Platelet Volume 11.0 6.5-11.0 Laboratory test finding 09/05/2011 Vitamin D, 25 Oh 14.4 ng/mL Low 32.0- 100.0 45 CBC Electronic ([facility]) 09/05/2011 WBC 9.4 3.6-9.6 RBC 4.14 3.90-5.70 Hemoglobin (a/CMC/CTX) 12.1 g/dL 12.1 - 17.2 Hematocrit (a/CMC/CTX) 35.6 % Low 36.1 - 50.3 Platelets [...] 2.00-4.90 Free T4 0.66 ng/dL Low 0.75-1.54 46 TSH 3.12 mIU/L 0.50-6.00 Lyme Igg/M W/RFX West 09/05/2011 Lyme IgG/IgM Ab <0.91 index 0.00-0.90 47 Lyme Disease Ab, Quant, IgM <0.91 index 0.00-0.90 48 Urinalysis 08/09/2011 Ua Color JACINTO Yellow Appearance-Urine CLEAR Clear Specific [place]-Ur 1.031 High 1.010-1.030 Esterase-Urine NEGATIVE Negative Nitrite NEGATIVE Negative Echobcprxtyy-Ty-LYX NEGATIVE Negative Protein-Urine TRACE Negative PH-Urine 6.0 5-9 Blood-Urine NEGATIVE Negative Ketones-Urine TRACE Negative Bilirubin-Ur SEE ICTOTEST Negative Glucose-Urine NEGATIVE Negative Laboratory test finding 08/09/2011 Ictotest NEGATIVE 49 Comp Metabolic Panel 08/09/2011 Sodium 139 mmol/L 135-145 Potassium 3.5 mmol/L 3.5-5.0 Chloride 108 mmol/L 101-111 Co2 (Carbon Dioxide) 25.0 mmol/L 22-32 Anion Gap 6.0 mmol/L 2-11 50 Glucose 108 mg/dL High 70-100 BUN 12 mg/dL 6-24 Creatinine 0.8 mg/dL 0.50-1.40 One Over Creatinine 1.25 BUN/Creatinine Ratio 15.0 8-20 Calcium 8.3 mg/dL 8.1-9.9 Total Protein 6.3 GM/DL 6.2-8.1 Albumin 3.6 GM/DL 3.6-5.4 Globulin 2.7 GM/DL 2-4 Albumin/Globulin Ratio 1.3 1-3 Bilirubin Total 0.6 mg/dL 0.4-1.5 51 Alkaline Phosphatase 88 U/L 40-122 Alt (SGPT) 65 U/L High 14-54 Ast (Sgot) 65 U/L High 12-42 eGFR Non- 93.4 > 60 eGFR 120.1 > 60 52 CBC With Manual Diff 08/09/2011 White Blood [...] 43 U/L 22-51 (HCG) Serum NEGATIVE Negative 53 Laboratory test finding 07/28/2011 Clotest NEGATIVE Ua [...] test finding 06/19/2009 Urine Culture No growth. 54 C-Reactive Protein 1.2 mg/dL High 0.0-0.5 54 Ua - Micro (Fma) 06/19/2009 Appearance CLOUDY [...] Crystals, Fluid (Fma/CMC/CTX) - Z#Comments - CBC ([facility]) 06/19/2009 WBC 10.9 High 3.6-9.6 RBC 4.72 3.90-5.70 Hemoglobin (Fma/CMC/CTX) 13.2 g/dL 12.1 - 17.2 Hematocrit (Fma/CMC/CTX) 41.7 % 36.1 - 50.3 Mean Corpuscular Vol 88.3 82.2-97.4 Mean Corpuscular Hemaglobin 28.0 27.6-33.3 Mean Corpuscular Hemo Concen 31.7 Low 33.0-36.0 Platelets 268 10^3/ul 150-400 Lymph% 32.0 20.5-51.1 Mixed% 9.1 Neutrophils % 58.9 RDW 13.6 11.6-13.7 Mean Platelet Volume 12.6 High 7.4-10.4 Urine ([facility]) 06/19/2009 SP Grav 1.020 Urine, (a/CMC/CTX) NEGATIVE Comprehensive Metabolic Prof 06/19/2009 Albumin 4.7 [...] Negative Throat Culture NEGATIVE Ua - Micro ([facility]) 06/16/2002 Appearance CLEAR/YELLOW Glucose NEG Bilirubin NEG Ketones NEG SP Grav 1.020 Blood NEG PH 6.5 Protein NEG Urobil 1.0 Nitrite NEG Leukocytes TRACE Hyaline - /Lpf Granular - /Lpf WBC'S 20-30 RBC'S 0-1 Mucus SM AMT /Lpf Epith FEW RENAL Bacteria RARE Amorphous - /Lpf Crystals - /Lpf Comments - Ua - Micro ([facility]) 06/20/2001 Appearance CLEAR LT YELLOW Glucose NEGATIVE Bilirubin NEGATIVE Ketones NEGATIVE SP Grav 1.015 Blood NEGATIVE PH 7.5 Protein NEGATIVE Urobil 0.2 Nitrite NEGATIVE Leukocytes TRACE Hyaline - /Lpf Granular - /Lpf WBC'S 3-5 RBC'S 0-1 Mucus - /Lpf Epith FEW Bacteria RARE Amorphous SLT /Lpf Crystals - /Lpf Comments - Ua - Non Micro ([facility]) 07/07/2000 Appearance CLEAR YELLOW Glucose - Bilirubin - Ketones TRACE SP Grav >=1.030 Blood - PH 5.5 Protein - Urobil 0.2 Nitrite - Leukocytes SMALL Laboratory test finding 07/07/2000 Hematocrit 36 % 36.1 - 50.3 Ua - Non Micro ([facility]) 06/14/1999 Appearance CLEAR YELLOW SP Grav 1.025 Esterase NEGATIVE Nitrite NEGATIVE pH 6.0 Protein NEGATIVE Glucose NEGATIVE Ketones NEGATIVE Urobil NEGATIVE Bilirubin NEGATIVE Blood NEGATIVE 1 Tailor Helper: [id number] 2 1 nuswab 3 Calculate total score by adding the 3 individual bacterial vaginosis (BV) marker scores together. Total score is interpreted as follows: Total score 0-1: Indicates the absence of BV. Total score 2: Indeterminate for BV. Additional clinical data should be evaluated to establish a diagnosis. Total score 3-6: Indicates the presence of BV. This test was developed and its performance characteristics determined by [facility]. It has not been cleared or approved by the Food and Drug Administration. The FDA has determined that such clearance or approval is not necessary. 4 This test was developed and its performance characteristics determined by [facility]. It has not been cleared or approved by the Food and Drug Administration. The FDA has determined that such clearance or approval is not necessary. 5 NEGATIVE FOR INTRAEPITHELIAL LESION AND MALIGNANCY. 6 Satisfactory for evaluation. Endocervical and/or squamous metaplastic cells (endocervical component) are present. 7 Z12.4 8 Krissy Pruett, Pipe Stripper (ASCP) 9 The Pap smear is a screening test designed to aid in the detection of premalignant and malignant conditions of the uterine cervix. It is not a diagnostic procedure and should not be used as the sole means of detecting cervical cancer. Both false-positive and false-negative reports do occur. 10 This liquid based ThinPrep(R) pap test was screened with the use of an image guided system. 11 The HPV DNA reflex criteria were not met with this specimen result therefore, no HPV testing was performed. 12 Tailor Helper: [id number] 13 If is still suspected, please repeat test after 48 to 72 hours. This test detects intact HCG only and is indicated for the early detection of . 14 Reference Range and Interpretation: TnI (ng/mL) Interpretation Less Than 0.03 ng/mL Not supportive of diagnosis of [place] 0.03 - 0.50 ng/mL Indeterminate: suggest serial studies if clinically indicated. Greater than 0.5 ng/mL Consistent with diagnosis of [place] 15 Because ethnic data is not always readily [...] 15-29 5 Kidney failure <15 (or dialysis) 16 Please note: The following may produce a false positive D Dimer test: - Rheumatoid factor greater than 60 IU/ml - Plasma hemoglobin greater than 0.05 gm/dl - Bilirubin greater than 50 mg/dl - Lipids greater than 1000 mg/dl - FDP greater than 20 ug/ml 17 Negative <36.0 Equivocal 36.0 - 43.9 Positive >43.9 18 Negative < 9.0 Equivocal 9.0 - 10.9 Positive >10.9 19 Negative <18.0 Equivocal 18.0 - 21.9 Positive >21.9 20 Negative <18.0 Equivocal 18.0 - 21.9 Positive >21.9 21 EBV Interpretation Chart Interpretation EBV-IgM VCA-IgG EBNA-IgG EA(D)-IgG EBV Seronegative - - - - Early Phase + - - - Acute Primary + + - +or- Infection Convalescence/Past - + + +or- Infection Reactivated +or- + + + Infection + Antibody Present - Antibody Absent 22 1 SST 23 Negative <0.9 Equivocal 0.9 - 1.0 Positive >1.0 24 Negative <0.9 Equivocal 0.9 - 1.0 Positive >1.0 25 Negative <0.9 Equivocal 0.9 - 1.0 Positive >1.0 26 Negative <0.9 Equivocal 0.9 - 1.0 Positive >1.0 27 EBV Interpretation Chart . Interpretation VCA-IgM EA-IgG VCA-IgG NA-ABS . Susceptible - - - - Acute Infection + +or- +or- - Convalescent Phase +or- +or- + + Chronic or Reactivated - + + +or- Old Infection - - +or- + + Antibody Present - Antibody Absent 28 Negative <0.9 Equivocal 0.9 - 1.0 Positive >1.0 29 Negative <0.9 Equivocal 0.9 - 1.0 Positive >1.0 30 N 31 Because ethnic data is not always readily [...] 15-29 5 Kidney failure <15 (or dialysis) 32 If is still suspected, please repeat test after 48 to 72 hours. This test detects intact HCG only and is indicated for the early detection of . 33 RUN DATE: 03/08/13 [facility] LAB LIVE PAGE 1 RUN TIME: [address] [place] [address] Specimen Inquiry Name: CHRISTA LUEVANO : [address]: Martín Yun MD Acct: [id number] Unit: [id number] AGE: 17 Location: ED Re03/08/13 SEX: F Status: REG ER SPEC: [id number] MARYANN: 03/08/[address]: Lashell ESTRADA REQ: [id number] RECD: 03/08/13 STATUS: ML BROUSSARD DR: Martín Patel MD, MD _ SOURCE: NASAL ASPI SPDES: ORDERED: Rapid Flu A B Procedure Result Verified Site Rapid Influenza A B Antigen Final 03/08/13- 2013 ML Influenza A Antigen Negative by Enzyme Immunoassay Influenza B Antigen Negative by Enzyme Immunoassay Cell culture testing can be performed to confirm negative test results and to assist in detecting other viruses that can produce similar clinical symptoms. Please notify Microbiology Lab if further testing is desired. END OF REPORT * ML=Testing performed at Main Lab DEPARTMENT OF PATHOLOGY, [facility] [employer] [place], [place] [address] Antonino Khan M.D. Director [facility] Permit #[id number] 34 RUN DATE: 03/10/13 [facility] LAB LIVE PAGE 1 RUN TIME: [address] [place] [address] Specimen Inquiry Name: CHRISTA LUEVANO : [address]: Martín Yun MD Acct: [id number] Unit: [id number] AGE: 17 Location: ED Re03/08/13 SEX: F Status: DEP ER SPEC: [id number] MARYANN: 03/08/[address] [facility] [address]: Lashell ESTRADA REQ: [id number] RECD: 03/08/13 STATUS: ML BROUSSARD DR: Martín Patel MD, MD _ SOURCE: [facility] ORDERED: Rapid Strep A, Throat Beta Str Procedure Result Verified Site Rapid Strep A Final 03/08/13- 2004 ML Rapid Strep A Negative for Group A Strep by enzyme immunoassay The seismograph shooter and regulatory agencies both recommend that a throat culture for beta strep be performed if a Rapid Group A Strep assay yields a negative result. Therefore a culture will be automatically performed on all negative samples. Throat Beta Strep Culture Final 03/10/13844 ML Negative For Group A Beta Streptococcus END OF REPORT * ML=Testing performed at Main Lab DEPARTMENT OF PATHOLOGY, [facility] [employer] [place], [place] [address] Antonino Khan M.D. Director [facility] Permit #[id number] 35 RUN DATE: 03/08/13 [facility] LAB LIVE PAGE 1 RUN TIME: 2004 [facility] [employer] [place], [place] [address] Specimen Inquiry Name: CHRISTA LUEVANO : [address]: Martín Yun MD Acct: [id number] Unit: [id number] AGE: 17 Location: ED Re03/08/13 SEX: F Status: REG ER SPEC: [id number] MARYANN: 03/08/[address]: Lashell ESTRADA REQ: [id number] RECD: 03/08/13 STATUS: RES OTHR DR: Jose Yun,MD Martín _ SOURCE: THROAT [facility]: ORDERED: Rapid Strep A, Throat Beta Str Procedure Result Verified Site Rapid Strep A Final 03/08/132004 ML Rapid Strep A Negative for Group A Strep by enzyme immunoassay The seismograph shooter and regulatory agencies both recommend that a throat culture for beta strep be performed if a Rapid Group A Strep assay yields a negative result. Therefore a culture will be automatically performed on all negative samples. Throat Beta Strep Culture PENDING END OF REPORT * ML=Testing performed at Main Lab DEPARTMENT OF PATHOLOGY, [address] [place] [address] Antonino Khan M.D. Director [facility] Permit #[id number] 36 FASTING; 3 SST'S; 1 APTIMA SWAB 37 Negative <0.91 Equivocal 0.91 - 1.09 Positive >1.09 38 Calculate total score by adding the 3 [...] developed and its performance characteristics determined by [employer]. It has not been cleared or approved by the Food and Drug Administration. The FDA has determined that such clearance or approval is not necessary. 39 This test was developed and its performance characteristics determined by [employer]. It has not been cleared or approved by the Food and Drug Administration. The FDA has determined that such clearance or approval is not necessary. 40 RESULT MARS'D 41 RESULT REC'D 42 Index Value: Specimen reactivity relative to the negative cutoff. 43 Negative: Non-reactive by ICMA Positive: Repeatedly reactive by ICMA. Refer to Western Blot confirmatory test for final interpretation. . Physician should international student counselor the patient about result significance. Patient information should be kept strictly confidential. 44 RUN DATE: 01/20/12 [facility] NMI LIVE PAGE 1 RUN TIME: 1216 Specimen Inquiry RUN USER: INTERFACE Name: INGRIDBENICHRISTA Powell Accmellisa#: [id number] Status: REG REF Re01/18/12 Age/Sex: 16/F Unit#: [id number] Location: [facility] : [birth year] SPEC #: [id number] MARYANN: 01/18/12 STATUS: ML RE #: [id number] RECD: 01/18/[address] [facility] [address]: Milka MUELLER,Mily Moy ([place]) SOURCE: STOOL ENTR: 01/18/[address]: [facility]: ORDERED: STOOL CULTURE, O P: ANDERSON/John KIRK AMP DNA, STL LACTOFERRIN ACT WKST: B 01/20/12 #1 Procedure Result Verified Site > STOOL CULT SENSITIVITY Final 01/20/12- 1216 ML NEGATIVE FOR THE ENTERIC PATHOGENS - SALMONELLA, SHIGELLA, AEROMONAS, PLESIOMONAS AND YERSINIA. VIBRIO AND E. COLI 0157 NOT ROUTINELY TESTED FOR IN A STOOL CULTURE. PLEASE SUBMIT SAMPLE WITH SPECIFIC REQUEST FOR DESIRED ORGANISM(S). > STOOL SPECIMEN DESCRIPTION Final 01/18/12- 1125 ML STOOL COLOR LIGHT BROWN STOOL FORM SEMI-FORMED STOOL CONSISTENCY SOFT > CAMPYLOBACTER CULTURE Final 01/20/12- 1216 ML NO GROWTH OF CAMPYLOBACTER AFTER 48 HOURS > SHIGA TOXIN 1 AND 2 (EHEC) Final 01/19/12- 1110 ML SHIGA TOXIN 1 NEGATIVE BY IMMUNOCHROMATOGRAPHIC ASSAY SHIGA TOXIN 2 NEGATIVE BY IMMUNOCHROMATOGRAPHIC ASSAY > O P: GIARDIA/CRYPTO SCREEN Final 01/19/12- 1312 ML GIARDIA ANTIGEN NEGATIVE BY IMMUNOASSAY CRYPTOSPORIDIUM [...] is requested. Contact the Microbiology Department at [phone]. TEST LIMITATIONS: As with all diagnostic procedures, the results obtained should be used in conjunction with other clinical information available the physician. Negative results can occur in samples containing antigen below lower limits of DEPARTMENT OF PATHOLOGY, [address] [place] [address] [facility] Permit #[id number] Hermelinda García M.D. Locks Inspector RUN DATE: 01/20/12 [facility] NMI LIVE PAGE 2 RUN TIME: 1216 Specimen Inquiry RUN USER: INTERFACE Name: CHRISTA LUEVANO Status: REG REF Re01/18/12 Age/Sex: 16/F Unit#: [id number] Location: [facility] : 93 -- -- CONTINU ED Procedure [...] recommended. > C. DIFFICILE AMPLIFIED DNA Final 01/18/12- 1424 ML C. DIFFICILE AMPLIF DNA NEGATIVE: NO [...] patients. > FECAL LACTOFERRIN (STOOL WBC) Final 01/18/12- 1437 ML FECAL LACTOFERRIN NEGATIVE BY IMMUNOASSAY TEST LIMITATIONS: Assay detects elevated levels of lactoferrin released from fecal leukocytes as a marker of intestinal inflammation. The test may not be appropriate in immunocompromised persons. Fecal samples from breast fed infants should not be used with this assay. - [facility] Permit #[id number] [address] [place] [address] DEPARTMENT OF PATHOLOGY, [address] [place] [address] [facility] Permit #[id number] Antonino Khan M.D. Director [place] M.D. Locks Inspector 45 Effective September 11, 2011 Vitamin D, 25-Hydroxy reference intervals will be changing to 30-100. . Recent studies consider the lower limit of 32.0 ng/mL to be a threshold for optimal health. Jorge Luis VINCENT. J Nutr. 2004;135(2):317-22. 46 RESULT RECKD' 47 Negative <0.91 Equivocal 0.91 - 1.09 Positive >1.09 Note: The CDC currently advises that Western blot testing be performed following all equivocal or positive EIA results. Final diagnosis should include appropriate clinical findings and a positive EIA which is also positive by Western blot. 48 Negative <0.91 Equivocal 0.91 - 1.09 Positive >1.09 . Note: IgM levels may peak at 3-6 weeks post infection, then gradually decline. FDA currently advises that Western Blot testing be performed following all equivocal or positive EIA results. Final diagnosis should include appropriate clinical findings and a positive EIA which is also positive by Western Blot. 49 ICTOTEST IS A QUALITATIVE CONFIRMATORY TEST FOR BILIRUBIN. 50 Anion gap measurement may be of limited value in the presence of any alkalosis, especially in a combined acid base disorder. . 51 A metabolite of Naproxen, O-desmethylnaproxen, has been shown to interfere with the [place] method for measuring total bilirubin. Samples from patients who have taken Naproxen have shown spurious elevation in total bilirubin levels. 52 Because ethnic data is not always readily [...] 15-29 5 Kidney failure <15 (or dialysis) 53 If is still suspected, please repeat test after 48 to 72 hours. . This test detects intact HCG only and is indicated for the early detection of . 54 1SST,1BORITEX Procedures Date CPT Code Description Status 12/07/2014 24419 Electrocardiogram Complete Completed 09/25/2012 72780 Vision Test- screening test of visual acuity, Completed quantitative, bila 04/16/2012 24709 Pulse Oximetry Completed Encounters Type Date Location Provider CPT E/M Dx Office Visit 02/05/2018 10:30[place] [address] J01.90 Z30.09 Office Visit 11/19/2017 2:00p [place] [address] Z12.4 Z11.3 Z00.00 Office Visit 09/26/2017 5:30p [place] [address] F34.1 F43.12 F41.1 Office Visit 06/29/2017 10:30a Main Office KESHA Wilson 29190 F41.1 F34.1 D48.5 Office Visit 05/08/2016 12:45p Main Office KESHA Wilson 10983 J01.90 M54.5 Office Visit 03/31/2016 9:30a Main Office KESHA Wilson 88056 M79.672 Office Visit 01/10/2016 9:30a Main Office KESHA Wilson 20039 F41.1 F34.1 F43.12 Office Visit 01/20/2015 11:30a Main Office Shelby Atwoodr, [facility] 63323 840.9 848.49 719.43 Office Visit 01/11/2015 10:00a Main Office Shelby Atwoodr, [facility] 82415 300.00 311 Office Visit 12/07/2014 10:00a [facility] Office Jose Luke M.D. 17232 786.59 Office Visit 10/30/2014 1:15p Main Office Shelby Montesrer, [facility] 53385 300.00 311 Office Visit 09/14/2014 7:45p Main Office Shelbyadelfo MontesJulio Cesar, [facility] 70319 465.8 300.00 Office Visit 08/14/2014 9:30a Main Office Shelby Montesrer, [facility] 31451 300.00 780.52 847.1 Office Visit 07/08/2014 11:00a Main Office Shelby Atwoodr, [facility] 08536 462 Office Visit 05/13/2014 9:30a Main Office Shelby Montesrer, [facility] 13734 300.00 Office Visit 04/17/2014 11:30a [facility] Office Jose Luke M.D. 21594 V74.1 Office Visit 04/10/2014 9:00a Main Office Shelby Montesrer, [facility] 81978 300.00 Office Visit 03/13/2014 10:00a Main Office Shelbyadelfo MontesJulio Cesar, [facility] 96286 300.00 Office Visit 02/20/2014 2:15p Main Office Shelby Montesrer, [facility] 34642 300.00 525.8 Office Visit 01/29/2014 4:30p [facility] Office Shelbyadelfo MontesJulio Cesar, [facility] 65763 845.09 Office Visit 10/20/2013 1:15p [place] [address] 686.9 789.02 Office Visit 07/07/2013 11:10a Main Office Valente Delaney M.D. 68343 461.9 Office Visit 06/26/2013 11:30a Main Office Ashely Tapia 02642 462 995.3 Office Visit 05/02/2013 2:30p Main Office Shelby Harrell, [facility] 86399 461.0 Office Visit 03/13/2013 10:45a [facility] Office Shelby Harrell, [facility] 48556 462 Office Visit 03/10/2013 7:00p Main Office Shelby Harrell, [facility] 46697 462 Office Visit 10/23/2012 11:00a Main Office Shelby Harrell [facility] 36901 V65.49 Office Visit 09/25/2012 5:40p Main Office Jose Luke M.D. 03002 724.5 V70.0 V05.4 V04.89 V72.0 Office Visit 09/06/2012 3:00p Main Office Shelby Harrell, [facility] 22793 461.9 Office Visit 07/05/2012 3:15p Main Office Shelby Harrell, [facility] 19091 461.9 Office Visit 05/01/2012 2:30p Main Office Mily Dianeashlyn Afkylie-C 32398 719.43 Office Visit 04/16/2012 3:10p Main Office Mikala Pizarro M.D. 82633 461.9 Office Visit 03/13/2012 1:00p Main Office Leyda Anabel Afnp-C 42131 112.1 Office Visit 01/24/2012 4:15p Main Office Mily Hilashlyn Afnp-C 81807 530.81 564.1 Office Visit 01/10/2012 6:00p Main Office Mily Colemanlashae Afnp-C 26430 787.91 789.07 794.5 Office Visit 12/29/2011 1:00p Main Office Shelby Harrell, [facility] 73239 461.0 Office Visit 09/05/2011 11:30a Main Office Yolie Ruano M.D. 45883 782.0 268.9 523.01 Office Visit 07/01/2011 10:15a Main Office Leyda Anabel Afnp-C 10166 530.81 575.8 Office Visit 03/02/2011 3:15p Main Office Leyda Little Afnp-C 20760 382.9 Office Visit 01/25/2011 10:00a Main Office Myerskylie-C 11952 V20.2 783.1 842.19 706.1 791.7 Office Visit 12/29/2010 10:00a Main Office Myerskylie-C 71767 842.19 V06.5 V05.8 V68.89 Office Visit 09/23/2010 8:20a Main Office Luis Reyes M.D. 43337 461.9 465.9 Office Visit 09/21/2010 10:15a Main Office Myerskylie-C 08648 465.8 Office Visit 07/14/2010 11:30a [facility] Deepa cunningham Jonah 87391 462 Hermelinda 388.70 Office Visit 11/24/2009 1:45p Main Office Leyda LittleAdelina-C 51776 381.01 Office Visit 06/23/2009 7:00p Main Office Herminia Cbourn M.D. 66773 789.00 Office Visit 06/19/2009 11:10a Main Office Daniel Larry M.D. 71518 789.00 Office Visit 08/31/2008 2:30p Main Office Shelby Harrell [facility] 63831 078.12 Office Visit 02/10/2008 12:00p Main Office Luis Reyes M.D. 35564 920 921.2 Office Visit 09/07/2007 11:15a Main Office Leydasunny LittleAdelina-C 49722 381.01 Office Visit 12/22/2005 10:30a Main Office KESHA Wilson 82569 490 Office Visit 08/23/2005 10:30a Main Office KESHA Wilson 48554 465.9 462 Office Visit 01/30/2005 7:15p Main Office KESHA Wilson 54553 473.9 Office Visit 12/23/2002 10:10a Main Office Antonio Milton M.D. 87155 460 381.81 Office Visit 06/16/2002 1:00p Main Office Leyda Adelina Little-C 74509 Office Visit 04/08/2002 8:30p Main Office Leyda LittleAshely 02643 Office Visit 06/20/2001 1:45p Main Office Leyda LittleAshely 19878 Office Visit 07/04/2000 6:00p Main Office Mily JarquinAdelina-Maya 83985 Plan of Care 05/10/2018 - Corrie Mg, NPZ32.01 Encounter for test, result positiveComments:Common meds safe in print off required Discussed cutting back on sugar to prevent gestational diabetes precautions provided to patient and partner. Will refer to OBGYN for continuedmanagement of [id number] Spotting complicating , first trimesterComments: suspect implantation bleeding, patient is 5 weeks at this time, advised if heavy bleeding, pain, fever, needs to seek medical attention.F43.12 Post- traumatic stress disorder, [id number] Generalized anxiety disorderNew Medication:Gabapentin 100 mgComments:will work on reducing gabapentin use, patient states understanding that the medications she is on may pose risk to fetus the benefits of the SSRI will outweigh the risks since her mental health is stable on these medications at this time. Was taking 1-2 x 300tabs gabapentin daily, will provide 100mg tabs and hope for 2-4 of these a day and potentially wean off for duration of .Follow up:4 weeksAllComments:~B_~ U_Medication Management~b_~u_ Patient Understands medications she's taking? Yes No Are there Barriers to Adherence? Yes No Has the patient been asked about herbal supplements and therapies, and OTC meds? Yes No ~ B_~U_Care Plan~b_~u_1. Patient has been queried about patient's [...]
--- NOTE | 2018-06-07 19:49 | RAD ---
INDICATION: Early with bleeding COMPARISON: None TECHNIQUE: Transvaginal scans were obtained for determination FINDINGS: There are early intrauterine gestational sacs suggesting a twin gestation. There is a gestational sac labeled #1 which is in the lower uterine for which there is no evidence of a yolk sac or pole. This would correspond to a 5 week 4 day gestation. There is no flow on Doppler interrogation. There is a small subchorionic hemorrhage. In the fundal region is a second apparent gestational sac labeled #2 corresponding to a 5 week 6 day gestation based on sac size no definitive yolk sac or pole and no color flow findings. Both ovaries are identified as discrete structures and have normal sonographic appearances. The right ovary measures 2.6 x 1.5 x 1.5 cm and the left 2.4 x 1.1 x 1.7 cm. IMPRESSION: POSSIBLE EARLY INTRAUTERINE GESTATIONS BUT NO DEFINITIVE EVIDENCE OF POLES OR COLOR FLOW. ONE OF THE SAC HAS A SMALL SUBCHORIONIC HEMORRHAGE. PROTRUSIO BETA-HCGS AND FOLLOW-UP ULTRASONOGRAPHY WILL BE REQUIRED TO ASSESS FOR VIABILITY.
[2018-06-07 20:39] LABS: Urine Appearance Cloudy; Urine Blood 2+ (Negative); Urine Color Yellow; Urine Ketones Negative (Negative); Urine Protein Negative (Negative); Urine Red Blood Cell Trace(0-2/hpf) (Absent); Urine Specific Gravity 1.008 (1.010-1.030); Urine Urobilinogen Negative (Negative); Urine White Blood Cell 1+(6-10/hpf) (Absent)
[2018-06-07 20:51] LABS: ABS Basophils 0.1 10^3/ul (0-0.2); ABS Eosinophils 0.1 10^3/ul (0-0.6); ABS Lymphocytes 2.5 10^3/ul (1.0-4.8); ABS Monocytes 0.7 10^3/ul (0-0.8); ABS Neutrophils 8.1 10^3/ul (1.5-7.7); ABS Nucleated RBC 0 10^3/ul; Eosinophil % 0.5 % (0-6); Hematocrit 35 % (35-47); Hemoglobin 11.6 g/dl (12.0-16.0); Lymphocyte % 21.6 % (25-47); Mean Corpuscular HGB Conc 33 g/dl (31-36); Mean Corpuscular Hemoglobin 28 pg (27-31); Mean Corpuscular Volume 85 fL (80-97); Mean Platelet Volume 9.5 um3 (7.4-10.4); Nucleated Red Blood Cells % 0; Platelet Count 250 10^3/ul (150-450); Red Blood Count 4.17 10^6/ul (4.00-5.40); Red Cell Distribution Width 14 % (10.5-15); White Blood Count 11.4 10^3/ul (3.5-10.8)
[2018-06-07 21:08] LABS: EGFR Non-African American 82.6 (>60)
[2018-06-07] MEDS ORDERED: Nitrofurantoin Macrocrystals* 100 MG CAP PO ONE (21:28)
--- NOTE | 2018-06-07 21:48 | ED ---
- HPI Summary HPI Summary: 23 year old female G1PO LMP april 01 presents with vaginal spotting today. She states that it is just when she wipes. She admits to urgency and frequency. She denies any dysuria. No fevers. No nausea and no vomiting. No bowel pain. No diarrhea constipation. She has not had her first OB appointment yet. She has history of depression and anxiety. She states that she had some spotting in April that was told was due to implantation bleeding. - History of Current Complaint Chief Complaint: EDVaginalBleeding Stated Complaint: 9 1/2 WEEKS PREG SPOTTING Time Seen by Provider: 06/07/18 20:32 Pain Intensity: 0 - Assessment Hx Now: No - Allergies/Home Medications Allergies/Adverse Reactions: Allergies Allergy/AdvReac Type Severity Reaction Status Date / Time MS Penicillins [Penicillins] Allergy Severe Anaphylatic Verified 11/30/17 07:22 Shock MS Pertussis Immune Globulin Allergy Mild Agitation Verified 11/30/17 07:22 [Pertussis Immune Globulin] PMH/Surg Hx/FS Hx/Imm Hx Endocrine/Hematology History: Denies: Hx Diabetes, Hx Thyroid Disease Cardiovascular History: Denies: Hx Hypertension, Hx Pacemaker/ICD, Other Cardiovascular Problems/ Disorders Respiratory History: Denies: Hx Asthma, Hx Chronic Obstructive Pulmonary Disease (COPD), Other Respiratory Problems/Disorders GI History: Reports: Hx Irritable Bowel - NO MEDS Denies: Hx Ulcer Musculoskeletal History: Reports: Hx Tendonitis - RIGHT WRIST Sensory History: Reports: Hx Contacts or Glasses - GLASSES FOR DRIVING Denies: Hx Hearing Aid Opthamlomology History: Reports: Hx Contacts or Glasses - GLASSES FOR DRIVING Neurological History: Denies: Other Neuro Impairments/Disorders Psychiatric History: Reports: Hx Anxiety - NO MEDS, Hx Depression - NO MEDS Denies: Hx Panic Disorder - Surgical History Surgery Procedure, Year, and Place: BILATERAL MYRINGOTOMY WITH EAR TUBE [place]AC[place] [facility] [place]. [place] LAPAROSCOPIC CHOLECYSTECTOMY, [facility] [place]. 01/2014 RIGHT WRIST DEBRIDEMENT, [facility] [place]. 2013 3 IMPACTED WISDOM TEETH EXTRACTION, [facility]. 2015 RIGHT WRIST ARTHROSCOPIC SURGERY, [facility] [place] Hx Anesthesia Reactions: Yes - WOKE DURING WISDOM TEETH EXTRACTION AFTER FIRST 2 Infectious Disease History: No Infectious Disease History: Denies: Hx Hepatitis, Hx Human Immunodeficiency Virus (HIV), History Other Infectious Disease, Traveled Outside the US in Last 30 Days - Family History Known Family History: Positive: Diabetes Negative: Hypertension - Social History Alcohol Use: None Substance Use Type: Reports: None Smoking Status (MU): Never Smoked Tobacco Have You Smoked in the Last Year: No Review of Systems Negative: Fever Negative: Shortness Of Breath Positive: Other - vaginal bleeding. Negative: Abdominal Pain, Vomiting Positive: urgency All Other Systems Reviewed And Are Negative: Yes Physical Exam - Physical Exam Triage Information Reviewed: Yes Vital Signs Reviewed: Yes Appearance: Positive: Well-Appearing Skin: Positive: Warm, Dry Head/Face: Positive: Normal Head/Face Inspection Eyes: Positive: Normal, Conjunctiva Clear ENT: Positive: Pharynx normal Respiratory/Lung Sounds: Positive: Clear to Auscultation, Breath Sounds Present Cardiovascular: Positive: Normal, RRR Abdomen Description: Positive: Nontender, Soft Bowel Sounds: Positive: Present Musculoskeletal: Positive: Normal Neurological: Positive: Normal Psychiatric: Positive: Normal Diagnostics - Vital Signs Vital Signs Temp Pulse Resp BP Pulse Ox 06/07/18 20:03 98.5 F 92 145/81 100 06/07/18 18:24 97.5 F 98 18 136/91 99 - Laboratory Lab Results: Lab Results 06/07/18 06/07/18 06/07/18 Range/Units 20:10 20:43 20:44 WBC 11.4 H (3.5-10.8) 10^3/ul RBC 4.17 (4.00-5.40) 10^6/ul Hgb 11.6 L (12.0-16.0) g/dl Hct 35 (35-47) % MCV 85 (80-97) fL MCH 28 (27-31) pg MCHC 33 (31-36) g/dl RDW 14 (10.5-15) % Plt Count 250 (150-450) 10^3/ul MPV 9.5 (7.4-10.4) um3 Neut % (Auto) 71.1 (38-83) % Lymph % (Auto) 21.6 L (25-47) % [place] % (Auto) 6.1 (0-7) % Eos % (Auto) 0.5 (0-6) % Baso % (Auto) 0.7 (0-2) % Absolute Neuts (auto) 8.1 H (1.5-7.7) 10^3/ul Absolute Lymphs (auto) 2.5 (1.0-4.8) 10^3/ul Absolute Monos (auto) 0.7 (0-0.8) 10^3/ul Absolute Eos (auto) 0.1 (0-0.6) 10^3/ul Absolute Basos (auto) 0.1 (0-0.2) 10^3/ul Absolute Nucleated RBC 0 10^3/ul Nucleated RBC % 0 Sodium 138 (135-145) mmol/L Potassium 3.8 (3.5-5.0) mmol/L Chloride 105 (101-111) mmol/L Carbon Dioxide 26 (22-32) mmol/L Anion Gap 7 (2-11) mmol/L BUN 10 (6-24) mg/dL Creatinine 0.84 (0.51-0.95) mg/dL Est GFR ( Amer) 100.0 (>60) Est GFR (Non-Af Amer) 82.6 (>60) BUN/Creatinine Ratio 11.9 (8-20) Glucose 90 (70-100) mg/dL Calcium 9.2 (8.6-10.3) mg/dL Total Bilirubin 0.30 (0.2-1.0) mg/dL AST 16 (13-39) U/L ALT 17 (7-52) U/L Alkaline Phosphatase 90 (34-104) U/L Total Protein 7.3 (6.4-8.9) g/dL Albumin 4.1 (3.2-5.2) g/dL Globulin 3.2 (2-4) g/dL Albumin/Globulin Ratio 1.3 (1-3) Beta HCG, Quant 3697.00 mIU/mL Urine Color Yellow Urine Appearance Cloudy Urine pH 6.0 (5-9) Ur Specific [place] 1.008 L (1.010-1.030) Urine Protein Negative (Negative) Urine Ketones Negative (Negative) Urine Blood 2+ A (Negative) Urine Nitrate Negative (Negative) Urine Bilirubin Negative (Negative) Urine Urobilinogen Negative (Negative) Ur Leukocyte Esterase 3+ A (Negative) Urine WBC (Auto) 1+(6-10/hpf) A (Absent) Urine RBC (Auto) Trace(0-2/hpf) (Absent) Ur Squamous Epith Cells Present A (Absent) Urine Bacteria Absent (Absent) Urine Yeast Present A (Absent) Urine Glucose Negative (Negative) Blood Type 06/07/18 Range/Units 20:44 WBC (3.5-10.8) 10^3/ul RBC (4.00-5.40) 10^6/ul Hgb (12.0-16.0) g/dl Hct (35-47) % MCV (80-97) fL MCH (27-31) pg MCHC (31-36) g/dl RDW (10.5-15) % Plt Count (150-450) 10^3/ul MPV (7.4-10.4) um3 Neut % (Auto) (38-83) % Lymph % (Auto) (25-47) % [place] % (Auto) (0-7) % Eos % (Auto) (0-6) % Baso % (Auto) (0-2) % Absolute Neuts (auto) (1.5-7.7) 10^3/ul Absolute Lymphs (auto) (1.0-4.8) 10^3/ul Absolute Monos (auto) (0-0.8) 10^3/ul Absolute Eos (auto) (0-0.6) 10^3/ul Absolute Basos (auto) (0-0.2) 10^3/ul Absolute Nucleated RBC 10^3/ul Nucleated RBC % Sodium (135-145) mmol/L Potassium (3.5-5.0) mmol/L Chloride (101-111) mmol/L Carbon Dioxide (22-32) mmol/L Anion Gap (2-11) mmol/L BUN (6-24) mg/dL Creatinine (0.51-0.95) mg/dL Est GFR ( Amer) (>60) Est GFR (Non-Af Amer) (>60) BUN/Creatinine Ratio (8-20) Glucose (70-100) mg/dL Calcium (8.6-10.3) mg/dL Total Bilirubin (0.2-1.0) mg/dL AST (13-39) U/L ALT (7-52) U/L Alkaline Phosphatase (34-104) U/L Total Protein (6.4-8.9) g/dL Albumin (3.2-5.2) g/dL Globulin (2-4) g/dL Albumin/Globulin Ratio (1-3) Beta HCG, Quant mIU/mL Urine Color Urine Appearance Urine pH (5-9) Ur Specific [place] (1.010-1.030) Urine Protein (Negative) Urine Ketones (Negative) Urine Blood (Negative) Urine Nitrate (Negative) Urine Bilirubin (Negative) Urine Urobilinogen (Negative) Ur Leukocyte Esterase (Negative) Urine WBC (Auto) (Absent) Urine RBC (Auto) (Absent) Ur Squamous Epith Cells (Absent) Urine Bacteria (Absent) Urine Yeast (Absent) Urine Glucose (Negative) Blood Type A Positive Result Diagrams: 06/07/18 20:44 06/07/18 20:43 Lab Statement: Any lab studies that have been ordered have been reviewed, and results considered in the medical decision making process. - Ultrasound No standard instances Ultrasound Interpretation: Positive (See Comments) - IMPRESSION: POSSIBLE EARLY INTRAUTERINE GESTATIONS BUT NO DEFINITIVE EVIDENCE OF POLES OR COLOR FLOW. ONE OF THE SAC HAS A SMALL SUBCHORIONIC HEMORRHAGE. PROTRUSIO BETA- HCGS AND FOLLOW-UP ULTRASONOGRAPHY WILL BE REQUIRED TO ASSESS FOR VIABILITY. Ultrasound Interpretation Completed By: Radiologist Course/Dx - Course Course Of Treatment: 23 year old female G1PO LMP april 01 presents with vaginal spotting today. She states that it is just when she wipes. She admits to urgency and frequency. She denies any dysuria. No fevers. No nausea and no vomiting. No bowel pain. No diarrhea constipation. She has not had her first OB appointment yet. She has history of depression and anxiety. She states that she had some spotting in April that was told was due to implantation bleeding. On exam nontender abdomen. White cell count normal. HCG is 3000. ultrasound shows early intrauretrine gestations. will have follow up with ob. urine shows uti will place on macrobid. patient understand and agrees with plan. - Differential Diagnosis/HQI/PQRI: Ectopic , Intrauterine , UTI - Diagnoses Provider Diagnoses: Vaginal bleeding during Discharge - Sign-Out/Discharge Documenting (check all that apply): Patient Departure - Discharge Plan Condition: Good Disposition: HOME Prescriptions: Nitrofurantoin Monohyd/M-Cryst [Macrobid 100 mg Capsule] 100 mg PO BID #13 cap Patient Education Materials: Urinary Tract Infection in (ED) Referrals: Jose Luke MD [Primary Care Provider] - Additional Instructions: Take Macrobid twice a day for 7days, first dose given in ED Drink plenty of fluids Follow up with obgyn to trend levels Return to ED if develop fever or if develop any new or worsening symptoms - Billing Disposition and Condition Condition: GOOD Disposition: Home
[2018-06-07 22:00] VITALS: BP 126/73
== END 2018-06-07 21:59 | disposition home or self-care (01) ==
LOC: ED 18:14
DX: O20.9 Hemorrhage in early pregnancy, unspecified (principal); R39.15 Urgency of urination; R35.0 Frequency of micturition; Z3A.01 Less than 8 weeks gestation of pregnancy; Z88.0 Allergy status to penicillin; Z88.8 Allergy status to other drugs, medicaments and biological substances
CPT/HCPCS: 36415; 76817; 80053; 81003; 81015; 84702; 85025; 86900; 86901; 87086; 99283; A9270-GY

== ENCOUNTER 2018-06-09 04:21 | Emergency (ER) | payer BC ==
--- NOTE | 2018-06-09 06:39 | ED ---
- HPI Summary HPI Summary: Patient is a 23-year-old female who presents emergency department for abdominal pain in early . Patient states she was seen in the ER 2 days ago for vaginal bleeding in . Ultrasound 2 days ago showed two questionable gestational sacs in the uterus around 5 weeks. Patient states that bleeding has been intermittent and sometimes heavier with clots and sometimes it is just slight spotting. Bleeding in the ER is minimal. A0. Patient presents to the ER today because abdominal pain has increased. Symptoms are moderate in severity. No current modifying factors. She denies nausea, vomiting, fever, chills, other vaginal discharge or concerns for STDs. - History of Current Complaint Chief Complaint: EDAbdPain Stated Complaint: ABD PAIN/VOMITTING/DIZZINESS Time Seen by Provider: 06/09/18 06:30 Hx Obtained From: Patient Pain Intensity: 10 - Assessment Hx Now: No - Allergies/Home Medications Allergies/Adverse Reactions: Allergies Allergy/AdvReac Type Severity Reaction Status Date / Time Penicillins Allergy Anaphylatic Verified 06/09/18 04:35 Shock Pertussis Vaccines Allergy Unknown Verified 06/09/18 04:35 Reaction Details PMH/Surg Hx/FS Hx/Imm Hx Previously Healthy: Yes Endocrine/Hematology History: Denies: Hx Diabetes, Hx Thyroid Disease Cardiovascular History: Denies: Hx Hypertension, Hx Pacemaker/ICD, Other Cardiovascular Problems/ Disorders Respiratory History: Denies: Hx Asthma, Hx Chronic Obstructive Pulmonary Disease (COPD), Other Respiratory Problems/Disorders GI History: Reports: Hx Irritable Bowel - NO MEDS Denies: Hx Ulcer Musculoskeletal History: Reports: Hx Tendonitis - RIGHT WRIST Sensory History: Reports: Hx Contacts or Glasses - GLASSES FOR DRIVING Denies: Hx Hearing Aid Opthamlomology History: Reports: Hx Contacts or Glasses - GLASSES FOR DRIVING Neurological History: Denies: Other Neuro Impairments/Disorders Psychiatric History: Reports: Hx Anxiety - NO MEDS, Hx Depression - NO MEDS Denies: Hx Panic Disorder - Surgical History Surgery Procedure, Year, and Place: BILATERAL MYRINGOTOMY WITH EAR TUBE PLACEMENT, [facility] [place]. 2010 LAPAROSCOPIC CHOLECYSTECTOMY, [facility] [place]. 01/2014 RIGHT WRIST DEBRIDEMENT, [facility] [place]. 2013 3 IMPACTED WISDOM TEETH EXTRACTION, [facility]. 2014 RIGHT WRIST ARTHROSCOPIC SURGERY, [facility] [place] Hx Anesthesia Reactions: Yes - WOKE DURING WISDOM TEETH EXTRACTION AFTER FIRST 2 Infectious Disease History: No Infectious Disease History: Denies: Hx Hepatitis, Hx Human Immunodeficiency Virus (HIV), History Other Infectious Disease, Traveled Outside the [place] in Last 30 Days - Family History Known Family History: Positive: Diabetes Negative: Hypertension - Social History Occupation: Employed Part-time Lives: With Family Alcohol Use: None Substance Use Type: Reports: None Smoking Status (MU): Never Smoked Tobacco Have You Smoked in the Last Year: No Review of Systems Constitutional: Negative Cardiovascular: Negative Respiratory: Negative Positive: Abdominal Pain. Negative: Vomiting, Diarrhea, Nausea Positive: other - Vaginal bleeding All Other Systems Reviewed And Are Negative: Yes Physical Exam - Physical Exam Triage Information Reviewed: Yes Vital Signs Reviewed: Yes Appearance: Positive: Well-Appearing - Pt. sitting up in bed in NAD. Appears uncomfortable but nontoxic. Friend present. Skin: Positive: Warm, Dry Head/Face: Positive: Normal Head/Face Inspection Eyes: Positive: Normal Neck: Positive: Supple Respiratory/Lung Sounds: Positive: Clear to Auscultation, Breath Sounds Present Cardiovascular: Positive: Normal, RRR Abdomen Description: Positive: Other: - Morbidly obese. Abd. is soft with diffuse lower tenderness. No rebound tenderness or gaurding. Neurological: Positive: Normal, CN Intact II-III Psychiatric: Positive: Affect/Mood Appropriate Diagnostics - Vital Signs Vital Signs Temp Pulse Resp BP Pulse Ox 06/09/18 04:28 98.1 F 71 21 137/92 100 - Laboratory Result Diagrams: 06/09/18 05:56 06/09/18 05:56 Lab Statement: Any lab studies that have been ordered have been reviewed, and results considered in the medical decision making process. Course/Dx - Course Course Of Treatment: Pt. presenting to ED for ongoing vaginal bleeding and increased abd. pain. She has a benign abd. exam. VS are stable. Will recheck basic labs and beta HCG. IV fluids started and tylenol given for pain. CBC shows stable H and H. Small elevation in CBC. CMP is unremarkable. Blood typed from 2 days ago is noted to be A+. Beta HCG has decreased from 2 days ago 3697 down to 2711 today. Given decrease in beta HCG it appears pt. is having a miscarriage. Case discussed briefly with Dr. Ace who agrees repeat u/s is not indicated today. On re-exam pt. is resting comfortably. Results were discussed. Advised her she will need a repeat u/s and labs by OB. To call her OB tomorrow for an apt. Pt. resting pain medication as tylenol has not been helping much. [employer] was queried and no red findings identified. Will prescribe a few days of hydrocodone. Advised to return to ER for increased pain, heavy bleeding, fever, vomiting. Patient understands and agrees with plan. Discharged home stable with her. Work excuse given. - Differential Diagnosis/HQI/PQRI: Incomplete , Missed , Spontaneous , Threatened , Intrauterine , First Trimester Bleeding, STI/STD - Diagnoses Provider Diagnoses: Spontaneous Discharge - Sign-Out/Discharge Documenting (check all that apply): Patient Departure - Discharge Plan Condition: Good Disposition: HOME Prescriptions: Hydrocodone/Acetaminophen [Hydrocodone-Acetamin 5-325 mg] 1 each PO Q6H #12 tablet MDD 4tablets Patient Education Materials: Miscarriage (ED) Forms: *Work Release Referrals: Jose Luke MD [Primary Care Provider] - Additional Instructions: Call your OB tomorrow for a follow up appointment You will need a repeat ultrasound and blood work Pain medication as directed Return to ER for increased pain, fever, heavy bleeding or if concerned - Billing Disposition and Condition Condition: GOOD Disposition: Home
[2018-06-09] MEDS ORDERED: NS 0.9% 1000 ML* 1,000 ML IV ONE (06:44)
[2018-06-09] MEDS ORDERED: Acetaminophen TAB* 325 MG PO ONE (06:45)
[2018-06-09] MEDS ORDERED: Ondansetron INJ* 2 MG/ML VIAL IV ONE (06:45)
[2018-06-09 06:58] LABS: ABS Basophils 0 10^3/ul (0-0.2); ABS Eosinophils 0 10^3/ul (0-0.6); ABS Lymphocytes 1.5 10^3/ul (1.0-4.8); ABS Monocytes 0.5 10^3/ul (0-0.8); ABS Neutrophils 11.3 10^3/ul (1.5-7.7); ABS Nucleated RBC 0 10^3/ul; Eosinophil % 0.2 % (0-6); Hematocrit 37 % (35-47); Hemoglobin 12.3 g/dl (12.0-16.0); Lymphocyte % 11.4 % (25-47); Mean Corpuscular HGB Conc 34 g/dl (31-36); Mean Corpuscular Hemoglobin 28 pg (27-31); Mean Corpuscular Volume 85 fL (80-97); Mean Platelet Volume 9.8 um3 (7.4-10.4); Nucleated Red Blood Cells % 0; Platelet Count 239 10^3/ul (150-450); Red Blood Count 4.33 10^6/ul (4.00-5.40); Red Cell Distribution Width 14 % (10.5-15); White Blood Count 13.4 10^3/ul (3.5-10.8)
[2018-06-09 07:09] LABS: EGFR Non-African American 70.8 (>60)
[2018-06-09 08:18] VITALS: BP 106/70
== END 2018-06-09 08:17 | disposition home or self-care (01) ==
LOC: ED 04:21
DX: O03.9 Complete or unspecified spontaneous abortion without complication (principal); Z88.0 Allergy status to penicillin; R10.9 Unspecified abdominal pain
CPT/HCPCS: 36415; 80053; 83690; 84702; 85025; 96374; 99283; A9270-GY; J2405

== ENCOUNTER 2019-08-02 12:56 | Emergency (ER) | payer SELFPAY ==
--- OUTSIDE RECORDS SUMMARY | 2019-08-02 13:10 | XMS REPORT | Continuity of Care Document ---
:1995 External Reference #:[id number] Author Name Corrie Mg NP Address [address] [place] [address] Problems Active Problems Provider Date Gastroesophageal reflux disease Ashely Tapia Onset: 09/11/2011 Acute sinusitis Mikala Pizarro M.D. Onset: 04/16/2012 Social History Type Date Description Comments Sex Unknown Tobacco Use Start: Unknown Nonsmoker ETOH Use Rare Recreational Drug Use Denies Drug Use Tobacco Use Start: Unknown Patient has never smoked Smoking Status Reviewed: 07/14/19 Patient has never smoked Allergies, Adverse Reactions, Alerts Active Allergies Reaction Severity Comments Date Penicillin Pertussis 12/29/2010 Medications Active Medications SIG Qnty Indications Ordering Date Provider Gabapentin Take 1 Capsules 180caps F41.1 Corrie Rausch 03/07/2019 100mg In The Morning KYLIE Mg Capsules And 1 Afternoon as Needed For Anxiety Bupropion take 1 tablets 90tabs F41.1 Corrie Rausch 03/03/2019 Hydrochloride ER (XL) daily KYLIE Mg 150mg Tablets ER 24HR F34.1 Sertraline HCL Take One And 60tabs F41.1 Jose Luke, 06/29/2017 50mg One-Half Tablets M.D. Tablets Daily F34.1 Formula A-Free Tablets Unknown Medications Administered in Office Medication SIG Qnty Indications Ordering Provider Date TB Intradermal Test Jose Luke M.D. 04/15/2014 Injection TB Intradermal Test Unknown 1993 Injection TB Intradermal Test Unknown 1993 Injection Immunizations CPT Code Status Date Vaccine Lot # [id number] Given 02/25/2013 Gardasil vacine typs 6,11,16,18 3 dose schedule [id number] 94747 Given 09/25/2012 Varicella (Chicken Pox) Immunization [id number] 66868 Given 09/25/2012 Gardasil vacine typs 6,11,16,18 3 dose schedule [id number] 63018 Given 12/29/2010 Meningococcal Conjugate Vaccine,Serogroups For [id number] Intramuscular Use 09998 Given 12/29/2010 Tetanus And Diptheria Adult Preservative Free [id number] >7Yrs 59761 Given 10/06/2009 H1N1 Virus Vaccine [id number] 13297 Given 10/06/2009 H1N1 Immunization Intramuscular/Intranasal W Counseling 68716 Given 07/07/2009 DO Not Use Split Influenza Virus Vaccine [id number] 79063 Given 08/22/2003 DT Immunization 39745 Given 04/07/1998 Oral Poliovirus Immunization 10625 Given 04/07/1998 MMR Virus Immunization 43974 Given 04/07/1998 DT Immunization 54295 Given 12/02/1997 Hepatitis B Immunization, -19 Years 28550 Given 07/17/1997 Hepatitis B Immunization, -19 Years 98848 Given 06/16/1997 Hepatitis B Immunization, -19 Years 25771 Given 11/09/1994 (IPV) Inactive Poliovirus Vaccine 71463 Given 11/09/1994 MMR Virus Immunization 07994 Given 11/09/1994 DT Immunization 94315 Given 11/09/1994 (Hib) Hemoplilus Influenza B 99615 Given 1993 (IPV) Inactive Poliovirus Vaccine 92819 Given 1993 DT Immunization 54343 Given 1993 (IPV) Inactive Poliovirus Vaccine 52204 Given 1993 DT Immunization 96527 Given 1993 (IPV) Inactive Poliovirus Vaccine 44187 Given 1993 DT Immunization Vital Signs Date Vital Result Comment 07/14/2019 8:04am BP Systolic 116 mmHg BP Diastolic 78 mmHg Heart Rate 68 /min Body Temperature 98.1 F Respiratory Rate 16 /min Height 67.5 inches 5'7.50" Weight 285.00 lb BMI (Body Mass Index) 44.0 kg/m2 05/21/2019 9:26am BP Systolic 118 mmHg BP Diastolic 60 mmHg Heart Rate 72 /min Body Temperature 98.4 F Respiratory Rate 16 /min Height 67.5 inches 5'7.50" Weight 286.12 lb BMI (Body Mass Index) 44.1 kg/m2 Results Test Date Facility Test Result H/L Range Note Laboratory test 03/04/2019 Family [facility] , POSITIVE finding (607)- - Serum Procedures Description No Information Available Medical Devices Description No Information Available Encounters Type Date Location Provider Dx Diagnosis Office Visit 05/21/2019 Main Office Deepa J06.9 Acute upper 9:30a Kaiden, [employer] respiratory infection, unspecified Office Visit 03/07/2019 [facility] Corrie Rausch Z32.01 Encounter for 4:00p KYLIE Mg test, result positive F43.12 Post-traumatic stress disorder, chronic F41.1 Generalized anxiety disorder F34.1 Dysthymic disorder E66.9 Obesity, unspecified Assessments Date Code Description Provider 07/14/2019 F43.12 Post-traumatic stress disorder, chronic Corrie Mg NP 07/14/2019 F41.1 Generalized anxiety disorder Corrie Mg NP 07/14/2019 E66.9 Obesity, unspecified Corrie Mg NP 07/14/2019 O26.92 related conditions, unspecified, Corrie Mg NP second trimester 05/21/2019 J06.9 Acute upper respiratory infection, Deepa Richey, [employer] unspecified 03/07/2019 Z32.01 Encounter for test, result Corrie Mg NP positive 03/07/2019 F43.12 Post-traumatic stress disorder, chronic Corrie Mg , KYLIE 03/07/2019 F41.1 Generalized anxiety disorder Corrie Mg NP 03/07/2019 F34.1 Dysthymic disorder Corrie Mg NP 03/07/2019 E66.9 Obesity, unspecified Corrie Mg NP 03/04/2019 Z32.01 Encounter for test, result Corrie Mg NP positive Plan of Treatment 07/14/2019 - Corrie Mg NPF43.12 Post-traumatic stress disorder, ljinnizY20.1 Generalized anxiety disorderComments:continue wellbutrin 150mg daily gabapentin 100 mg qAM sertraline 75mg kaaefH32.9 Obesity, unspecifiedComments:Counseled on heart healthy diet such as Mediterranean diet. Eat protein and vegetables first then carbohydrates last. Get at least 150 minutes of moderate aerobic activity or 75 minutes of vigorous aerobic activity a week, or a combination of moderate and vigorous activity. General goal of 30 minutes of physical activity a dayO26.92 related conditions, unspecified, second trimesterComments:Note for WICC Note for lifting restrictions will have 24 hour urine through OBGYN, BP well controlled at this time ED precautions reviewedAllComments:Medication Management Patient Understands medications he 's taking? Yes No Are there Barriers to Adherence? Yes No Has the patient been asked about herbal supplements and therapies, andOTC meds? Yes No Care Plan1. Patient has been queried about patient's goals/preferences and functional/lifestyle goals at relevant visits. If relevant, describe: na2. Treatment goals as explained to the patient: above3. Are there barriers to meeting treatment goals? Yes No If Yes, please describe: , comorbid conditions, polypharmacy 4. Self-Management goals as described to the patient: Yes NoAs always, we strongly encourage a healthy diet and making physicalactivity a part of your every day life. If you have questions about how or where to start, please contact the office. 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
--- NOTE | 2019-08-02 13:32 | ED ---
Abdominal Pain/Female - HPI Summary HPI Summary: 24 year old F [facility] mother complains of worsening RLQ abdominal pain radiating to her right shoulder since 2 weeks ago. Patient states that today, she developed right flank pain. Patient reports fatigue and myalgia. The patient rates the pain 6/10 in severity. Symptoms aggravated by nothing. Symptoms alleviated by nothing. Patient is 25 weeks . Patient states she had urine tests done 1 month ago which showed protein in her urine and she was being evaluated for preeclampsia. Patient states she was recently put on antibiotics for UTI. Patient states that when she had her follow up appointment, she was told she did not have a UTI. Patient states that she has an ultrasound scheduled to evaluate her for possible kidney stones. Surgical hx : cholecystectomy. - History of Current Complaint Chief Complaint: EDAbdPain Stated Complaint: 25 WKS PREG LOWER RT BACK PAIN PER PT Time Seen by Provider: 08/02/19 13:20 Hx Obtained From: Patient Onset/Duration: Lasting Weeks - 2, Still Present, Worse Since - today Timing: Constant Severity Currently: Moderate Pain Intensity: 6 Pain Scale Used: 0-10 Numeric Location: Discrete At: RLQ, Flank - right Radiates: Yes Radiates to: Other - right shoulder Aggravating Factor(s): Nothing Alleviating Factor(s): Nothing Allergies/Adverse Reactions: Allergies Allergy/AdvReac Type Severity Reaction Status Date / Time Penicillins Allergy Anaphylatic Verified 08/02/19 13:02 Shock Pertussis Vaccines Allergy Unknown Verified 08/02/19 13:02 Reaction Details Home Medications: Home Medications Iron 1 tab PO DAILY 08/02/19 [History Confirmed 08/02/19] Pnv No.95/Ferrous Fum/Folic AC [ Multivitamin Tablet] 1 each PO DAILY [History Confirmed 08/02/19] Sertraline HCl [Zoloft] 75 mg PO DAILY 08/02/19 [History Confirmed 08/02/19] PMH/Surg Hx/FS Hx/Imm Hx Endocrine/Hematology History: Denies: Hx Diabetes, Hx Thyroid Disease Cardiovascular History: Denies: Hx Hypertension, Hx Pacemaker/ICD, Other Cardiovascular Problems/ Disorders Respiratory History: Denies: Hx Asthma, Hx Chronic Obstructive Pulmonary Disease (COPD), Other Respiratory Problems/Disorders GI History: Reports: Hx Irritable Bowel - NO MEDS Denies: Hx Ulcer Musculoskeletal History: Reports: Hx Tendonitis - RIGHT WRIST Sensory History: Reports: Hx Contacts or Glasses - GLASSES FOR DRIVING Denies: Hx Hearing Aid Opthamlomology History: Reports: Hx Contacts or Glasses - GLASSES FOR DRIVING Neurological History: Denies: Other Neuro Impairments/Disorders Psychiatric History: Reports: Hx Anxiety - NO MEDS, Hx Depression - NO MEDS Denies: Hx Panic Disorder - Surgical History Surgery Procedure, Year, and Place: BILATERAL MYRINGOTOMY WITH EAR TUBE PLACEMENT, [facility]. 2010 LAPAROSCOPIC CHOLECYSTECTOMY, [facility] [place]. 01/2014 RIGHT WRIST DEBRIDEMENT, [facility] [place]. 2013 3 IMPACTED WISDOM TEETH EXTRACTION, [employer], [place]. 2015 RIGHT WRIST ARTHROSCOPIC SURGERY, [facility] Anesthesia Reactions: Yes - WOKE DURING WISDOM TEETH EXTRACTION AFTER FIRST 2 Infectious Disease History: No Infectious Disease History: Denies: Hx Hepatitis, Hx Human Immunodeficiency Virus (HIV), History Other Infectious Disease, Traveled Outside the [place] in Last 30 Days - Family History Known Family History: Positive: Diabetes Negative: Hypertension - Social History Alcohol Use: None Substance Use Type: Reports: None Smoking Status (MU): Never Smoked Tobacco Have You Smoked in the Last Year: No Review of Systems Positive: Fatigue Positive: Abdominal Pain - RLQ, radiating to right shoulder Positive: flank pain - right Positive: Myalgia All Other Systems Reviewed And Are Negative: Yes Physical Exam - Summary Physical Exam Summary: Appearance: The patient is well-nourished in no acute distress and in no acute pain. Skin: The skin is warm and dry, and skin color reflects adequate perfusion. HEENT: The head is normocephalic and atraumatic. The pupils are equal and reactive. The conjunctivae are clear and without drainage. Nares are patent and without drainage. Mouth reveals moist mucous membranes, and the throat is without erythema and exudate. The external ears are intact. The ear canals are patent and without drainage. The tympanic membranes are intact. Neck: The neck is supple with full range of motion and non-tender. There are no carotid bruits. There is no neck vein distension. Respiratory: Chest is non-tender. Lungs are clear to auscultation and breath sounds are symmetrical and equal. Cardiovascular: Heart is regular rate and rhythm. There is no murmur or rub auscultated. There is no peripheral edema and pulses are symmetrical and equal. Abdomen: The abdomen is soft. There is mild right sided tenderness in her abdomen. There are normal bowel sounds heard in all four quadrants and there is no organomegaly palpated. Musculoskeletal: There is no back tenderness noted. Extremities are non-tender with full range of motion. There is good capillary refill. There is no peripheral edema or calf tenderness elicited. Neurological: Patient is alert and oriented to person, place and time. The patient has symmetrical motor strength in all four extremities. Cranial nerves are grossly intact. Deep tendon reflexes are symmetrical and equal in all four extremities. Psychiatric: The patient has an appropriate affect and does not exhibit any anxiety or depression. Triage Information Reviewed: Yes Vital Signs On Initial Exam: Initial Vitals Temp Pulse Resp BP Pulse Ox 97.9 F 84 16 144/106 99 08/02/19 12:58 08/02/19 12:58 08/02/19 12:58 08/02/19 12:58 08/02/19 12:58 Vital Signs Reviewed: Yes Procedures - Sedation Patient Received Moderate/Deep Sedation with Procedure: No Diagnostics - Vital Signs Vital Signs Temp Pulse Resp BP Pulse Ox 08/02/19 12:58 97.9 F 84 16 144/106 99 - Laboratory Result Diagrams: 08/02/19 13:31 08/02/19 13:31 Lab Statement: Any lab studies that have been ordered have been reviewed, and results considered in the medical decision making process. - Ultrasound Renal Ultrasound Interpretation Completed By: Radiologist Summary of Ultrasound Findings: Mild hydronephrosis of the right kidney. ED physician has reviewed this report. Re-Evaluation - Re-Evaluation First Eval Re-Evaluation Time: 15:30 Change: Improved Comment: patient updated on her renal ultrasound and lab findings. she is agreeable to discharge Abdominal Pain Fem Course/Dx - Course Course Of Treatment: Ms. Luevano presented with some RUQ pain,, right shoulder pain and right sided flank pain for a couple weeks. She underwent an U /S here which did show some mild hydronephrosis and a U/A which showed only microscopic blood. I don't know whether this is a stone or just from her . I recommended a little pain control for now and F/U for further W// U. There is no sign of preeclamsia or HELLP. Her BP was a bit elevated here. - Diagnoses Provider Diagnoses: Kidney stone Discharge ED - Sign-Out/Discharge Documenting (check all that apply): Patient Departure - Discharge - Discharge Plan Condition: Stable Disposition: HOME Prescriptions: traMADol TAB* [Ultram*] 50 mg PO Q6HR PRN #20 tab MDD 4 PRN Reason: Pain Patient Education Materials: Kidney Stones (ED) Referrals: Jose Luke MD [Primary Care Provider] - Ap Hennessy MD [Medical Doctor] - 2 Days Additional Instructions: Follow up with Dr. Hennessy, urology, in 2-3 days. Return to the Emergency Department for new or worsening symptoms. - Billing Disposition and Condition Condition: STABLE Disposition: Home - Attestation Statements Document Initiated by Scribe: Yes Documenting Scribe: Bren Marquis Provider For Whom Scribe is Documenting (Include Credential): Geremias Varela MD Scribe Attestation: Bren Marie, scribed for Geremias Varela MD on 08/02/19 at 1758. Scribe Documentation Reviewed: Yes Provider Attestation: The documentation as recorded by the scribeBren accurately reflects the service I personally performed and the decisions made by me, Geremias Varela MD Status of Scribe Document: Viewed
[2019-08-02 13:47] LABS: ABS Eosinophils 0.1 10^3/ul (0-0.6); ABS Lymphocytes 1.6 10^3/ul (1.0-4.8); ABS Monocytes 0.5 10^3/ul (0-0.8); ABS Neutrophils 7.5 10^3/ul (1.5-7.7); Eosinophil % 0.7 %; Hematocrit 32 % (35-47); Hemoglobin 10.8 g/dL (12.0-16.0); Lymphocyte % 16.2 %; Mean Corpuscular HGB Conc 34 g/dL (31-36); Mean Corpuscular Hemoglobin 30 pg (27-31); Mean Corpuscular Volume 87 fL (80-97); Mean Platelet Volume 9.7 fL (7.4-10.4); Platelet Count 256 10^3/uL (150-450); Red Blood Count 3.65 10^6 /uL (3.70-4.87); Red Cell Distribution Width 14 % (10-15); White Blood Count 9.6 10^3/uL (3.5-10.8)
[2019-08-02 13:59] LABS: Albumin 3.5 g/dL (3.2-5.2); Albumin/Globulin Ratio 1.1 (1-3); C Reactive Protein 20.2 mg/L (<8.01); Calcium 9.1 mg/dL (8.6-10.3); EGFR African American 128.7 (>60); EGFR Non-African American 106.4 (>60); Globulin 3.3 g/dL (2-4); Potassium 3.9 mmol/L (3.5-5.0); Total Bilirubin 0.3 mg/dL (0.2-1.0); Total Protein 6.8 g/dL (6.4-8.9)
[2019-08-02 14:14] LABS: Urine Appearance Cloudy; Urine Bacteria Absent (Absent); Urine Bilirubin Negative (Negative); Urine Blood Negative (Negative); Urine Color Yellow; Urine Glucose Negative (Negative); Urine Ketones Negative (Negative); Urine Nitrite Negative (Negative); Urine Protein Negative (Negative); Urine Red Blood Cell 1+(3-5/hpf) (Absent); Urine Specific Gravity 1.009 (1.010-1.030); Urine Squamous Epithelial Cell Present (Absent); Urine Urobilinogen Negative (Negative); Urine White Blood Cell Trace(0-5/hpf) (Absent)
[2019-08-02 15:52] VITALS: BP 131/96
== END 2019-08-02 15:49 | disposition home or self-care (01) ==
LOC: ED 12:56
DX: O26.892 Other specified pregnancy related conditions, second trimester (principal); Z3A.23 23 weeks gestation of pregnancy; R10.9 Unspecified abdominal pain; Z87.891 Personal history of nicotine dependence
CPT/HCPCS: 36415; 76775; 80053; 81003; 81015; 85025; 86140; 87086; 99282

== ENCOUNTER 2019-10-02 10:43 | Inpatient (IN) | payer MEDICAID ==
[2019-10-02 11:24] LABS: ABS Lymphocytes 1.7 10^3/ul (1.0-4.8); ABS Monocytes 0.5 10^3/ul (0-0.8); ABS Neutrophils 7.6 10^3/ul (1.5-7.7); Eosinophil % 0.5 %; Hematocrit 35 % (35-47); Hemoglobin 11.7 g/dL (12.0-16.0); Lymphocyte % 17.4 %; Mean Corpuscular HGB Conc 33 g/dL (31-36); Mean Corpuscular Hemoglobin 29 pg (27-31); Mean Corpuscular Volume 86 fL (80-97); Mean Platelet Volume 11.4 fL (7.4-10.4); Platelet Count 211 10^3/uL (150-450); Red Blood Count 4.06 10^6 /uL (3.70-4.87); Red Cell Distribution Width 15 % (10-15); White Blood Count 9.9 10^3/uL (3.5-10.8)
[2019-10-02 11:34] LABS: INR 0.91 (0.82-1.09)
[2019-10-02 11:50] LABS: ALT 26 U/L (7-52); AST 23 U/L (13-39); Albumin 3.2 g/dL (3.2-5.2); Albumin/Globulin Ratio 0.9 (1-3); Alkaline Phosphatase 171 U/L (34-104); Anion Gap 9 mmol/L (2-11); BUN/Creatinine Ratio 14.5 (8-20); Blood Urea Nitrogen 10 mg/dL (6-24); CO2 Carbon Dioxide 21 mmol/L (22-32); Calcium 8.8 mg/dL (8.6-10.3); Chloride 106 mmol/L (101-111); EGFR African American 124.4 (>60); EGFR Non-African American 102.8 (>60); Globulin 3.7 g/dL (2-4); Glucose 96 mg/dL (70-100); Potassium 4.1 mmol/L (3.5-5.0); Sodium 136 mmol/L (135-145); Total Protein 6.9 g/dL (6.4-8.9); Uric Acid 6.9 mg/dL (2.3-6.6)
[2019-10-02] MEDS ORDERED: Lactated Ringers 1000 ML Bag* 1,000 ML IV ONE (12:09)
[2019-10-02] MEDS ORDERED: Buffered Lidocaine 1% SYRIN* 1 ML/SYRINGE INTRADERM ONE (12:09)
[2019-10-02] MEDS: Clindamycin 900 MG/D5W BAG(*) 900 MG/50 ML BAG IVPB SCH ×2 (12:59→21:22)
--- NOTE | 2019-10-02 13:13 | HP ---
General Information - Reason for Visit leaking fluid/ 24 yo at 33 weeks 6/7 days with mild preeclampsia and episode at 4 am of gush of fluid. She has had some spotting . gfm - General Information Maternal Age: 24 Grav: 0 Para: 0 SAB: 1 IEA: 0 Estimated Due Date: 11/14/19 Determined By: Early Ultrasound Maternal Blood Type and Rh: A Positive - Results this Serology/RPR Result: Non-Reactive Rubella Result: Immune HBsAg Result: Negative HIV Result: Negative Past Medical History Delivery History: See Records Pertinent Past Medical History: See Records Pertinent Past Surgical History: See Records Pertinent Family History: See Records - Antepartal Records Antepartal Records: Reviewed, Complicated by: - anxiety / preeclampsia and elevated liver enzymes. Review of Systems Constitutional: Comfortable CV Complaint: No Respiratory: Shortness of Breath: No Gastrointestinal: No Nausea/Vomiting Genitourinary: Bleeding, Leaking Fluid Musculoskeletal: Back Pain - has not changed for the last 4 days Neurological: No Headache Movement: Normal Exam Allergies/Adverse Reactions: Allergies Penicillins Allergy (Verified 08/02/19 13:02) Anaphylatic Shock Pertussis Vaccines Allergy (Verified 08/02/19 13:02) Unknown Reaction Details Lab Values - Entire Visit: Laboratory Tests 10/02/19 10/02/19 10/02/19 11:00 11:00 11:00 WBC 9.9 RBC 4.06 Hgb 11.7 L Hct 35 MCV 86 MCH 29 MCHC 33 RDW 15 Plt Count 211 MPV 11.4 H Neut % (Auto) 76.3 Lymph % (Auto) 17.4 Elliott % (Auto) 5.3 Eos % (Auto) 0.5 Baso % (Auto) 0.5 Absolute Neuts (auto) 7.6 Absolute Lymphs (auto) 1.7 Absolute Monos (auto) 0.5 Absolute Eos (auto) 0.0 Absolute Basos (auto) 0.0 Absolute Nucleated RBC 0.0 Nucleated RBC % 0.0 INR (Anticoag Therapy) 0.91 Sodium 136 Potassium 4.1 Chloride 106 Carbon Dioxide 21 L Anion Gap 9 BUN 10 Creatinine 0.69 Est GFR ( Amer) 124.4 Est GFR (Non-Af Amer) 102.8 BUN/Creatinine Ratio 14.5 Glucose 96 Uric Acid 6.9 H Calcium 8.8 Total Bilirubin 0.30 AST 23 ALT 26 Alkaline Phosphatase 171 H Total Protein 6.9 Albumin 3.2 Globulin 3.7 Albumin/Globulin Ratio 0.9 L Vag Amniotic Fld Detect Positive Blood Type Antibody Screen 10/02/19 11:00 WBC RBC Hgb Hct MCV MCH MCHC RDW Plt Count MPV Neut % (Auto) Lymph % (Auto) Elliott % (Auto) Eos % (Auto) Baso % (Auto) Absolute Neuts (auto) Absolute Lymphs (auto) Absolute Monos (auto) Absolute Eos (auto) Absolute Basos (auto) Absolute Nucleated RBC Nucleated RBC % INR (Anticoag Therapy) Sodium Potassium Chloride Carbon Dioxide Anion Gap BUN Creatinine Est GFR ( Amer) Est GFR (Non-Af Amer) BUN/Creatinine Ratio Glucose Uric Acid Calcium Total Bilirubin AST ALT Alkaline Phosphatase Total Protein Albumin Globulin Albumin/Globulin Ratio Vag Amniotic Fld Detect Blood Type A Positive Antibody Screen Negative - Measurements Height: 5 ft 7 in Weight: 297 lb Weight in lbs: 297.348791 Body Mass Index (BMI): 46.5 Pre- Weight: 278 lb Weight Gained This : 19 lbs and 0 ozs - Exam Breast: Breast Exam Deferred CVA: No CVA Tenderness Extremities: Edema - +1 Heart: Normal Rhythm/Heart Sounds HEENT: No Significant Findings Lungs: Clear Bilaterally Rectal: Rectal Exam Deferred Reflexes: DTR 2+ Thyroid: No Thyromegaly - Abdominal Exam Abdomen Exam: Non-Tender, Fundal Height Consistent with Dates Targeted Exam Findings Amniotic Fluid Evaluation: Positive ROM Plus EFM Findings - External Monitor Findings Baseline Heart Rate: 145 External Monitor Findings: Accelerations Present, No Pattern of Variable or Late Decelerations, Variability Moderate, Baseline Stable Contractions: None Assessment/Plan - Assessment PPROM at 33+ weeks . Discussed that I would recommend induction within 24 hrs / will start clindamycin prophylaxis for gbs recommend induction at 34 weeks if no labor by then. - Obstetrical Risk Factors Obstetrical Risk Factors: GBS Unknown, Obesity, PreEclampsia, Psychiatric Issues - Plan Plan: Observe - discussed withpatient that I recommend induction at 34 completed weeks barring any evidence for infection or compromise. D/w dr Whitaker and he agrees, Antibiotic Prophylaxis - U/s at bedside shows 8cm vertical pocket. + fbm / +tone . /+ nuno movement/ nst reactive/ bpp 10/10
[2019-10-02 13:36] LABS: Urine Benzodiazepine Screen None Detected (None Detect); Urine Opiates Screen None Detected (None Detect)
[2019-10-02] MEDS: Lactated Ringers 1000 ML Bag* 1,000 ML IV SCH (21:23)
[2019-10-02] MEDS ORDERED: hydrOXYzine HCL TAB* 50 MG PO ONE (22:00)
[2019-10-02] MEDS: Gabapentin CAP(*) 100 MG PO SCH (22:45)
[2019-10-03] MEDS: Clindamycin 900 MG/D5W BAG(*) 900 MG/50 ML BAG IVPB SCH ×3 (05:19→20:59)
[2019-10-03] MEDS: Sertraline* 50 MG TAB PO SCH (08:12)
[2019-10-03] MEDS: BuPROPion XL* 150 MG TAB.XL PO SCH (08:14)
[2019-10-03] MEDS: Gabapentin CAP(*) 100 MG PO SCH ×2 (08:14→20:59)
[2019-10-03] MEDS: Lactated Ringers 1000 ML Bag* 1,000 ML IV SCH (12:20)
[2019-10-03] MEDS ORDERED: OBEPIDURAL* 250 ML EPIDURAL ONE (12:27)
[2019-10-03] MEDS ORDERED: Famotidine TAB* 20 MG PO PRN (13:12)
[2019-10-03] MEDS ORDERED: Phenylephrine 40 MCG/ML SYRINGE IV PUSH PRN ×2 (13:12)
[2019-10-03] MEDS ORDERED: Lactated Ringers 1000 ML Bag* 1,000 ML IV ONE (13:12)
[2019-10-03] MEDS ORDERED: Sodium Citrate/Citric Acid* 15 ML UDC PO PRN (13:12)
[2019-10-03] MEDS ORDERED: Lactated Ringers 1000 ML Bag* 1,000 ML IV SCH ×2 (14:00→23:45)
[2019-10-03] MEDS ORDERED: OBEPIDURAL* 250 ML EPIDURAL SCH (14:00)
[2019-10-03] MEDS ORDERED: Oxytocin in LR* 20 UNITS/1,000 ML BAG IVPB ONE (22:12)
[2019-10-03] MEDS ORDERED: Witch Hazel PAD* JAR TOPICAL PRN (23:22)
[2019-10-03] MEDS ORDERED: Acetaminophen TAB* 325 MG PO PRN (23:22)
[2019-10-03] MEDS ORDERED: Dibucaine 1% 28.35 GM TUBE PR PRN (23:22)
[2019-10-03] MEDS ORDERED: Glycerin ADULT SUPP PR PRN (23:22)
[2019-10-03] MEDS ORDERED: Oxytocin in LR* 20 UNITS/1,000 ML BAG IVPB SCH (23:45)
--- NOTE | 2019-10-03 23:55 | PROCNOTE ---
[facility] OB: Delivery Note - Delivery A Date of : 10/03/19 Time of : 22:57 [place] Sex: Female Weight at : 5 lb 14 oz Score 1 Minute: 8 Score 5 Minutes: 9 Gestational Age in Weeks and Days at Delivery: 34 Weeks and 0 Days Delivery Method: Spontaneous Vaginal Labor: Spontaneous Did Patient attempt ?: N/A, No Previous Amniotic Fluid: Clear Anesthesia/Analgesia: CEI for Labor Delivered By: Juliana Hunter - Nursery Level of Nursery: NICU - Perineum Perineal Injury: Perineal Laceration, 1st Degree Perineal Repair: By Delivering Practioner - Events Delivery Events of Note: Pitocin During Labor, Full Course of Antibiotics, Pushed > 3 Hours, ROM > 24 Hours, Steriods Given for Lung Maturity - Additional Delivery Notes Additional Delivery Notes: Pt had PPROM @4am the day before delivery. She was managed expectantly and eventually progressed into labor. She received an epidural and then quickly progressed to 9cm and eventually fully dilated. She pushed 3.5hrs to deliver the 's head in PHU position followed quickly by the shoulders and the rest of the body. The baby was placed on the mom's abdomen. After >1min the cord was clamped x2 and cut and the baby was taken to the warmer for evaluation by the refrigerator mover. The placenta delivered with gentle cord traction and fundal massage and appeared intact with a marginal cord insertion. A small 1st degree vaginal laceration was repaired with 3-0 vicryl rapide. Fundus was then noted to be firm with good hemostasis.
[2019-10-04] MEDS ORDERED: Lidocaine 1% INJ* 10 MG/ML 30 ML SDV ONE (00:01)
[2019-10-04 07:41] LABS: ABS Basophils 0.1 10^3/ul (0-0.2); ABS Lymphocytes 1.7 10^3/ul (1.0-4.8); ABS Monocytes 0.9 10^3/ul (0-0.8); ABS Neutrophils 11.5 10^3/ul (1.5-7.7); Eosinophil % 0.2 %; Hematocrit 29 % (35-47); Hemoglobin 9.6 g/dL (12.0-16.0); Lymphocyte % 12.2 %; Mean Corpuscular HGB Conc 33 g/dL (31-36); Mean Corpuscular Hemoglobin 29 pg (27-31); Mean Corpuscular Volume 87 fL (80-97); Mean Platelet Volume 11.4 fL (7.4-10.4); Platelet Count 161 10^3/uL (150-450); Red Blood Count 3.34 10^6 /uL (3.70-4.87); Red Cell Distribution Width 15 % (10-15); White Blood Count 14.2 10^3/uL (3.5-10.8)
[2019-10-04] MEDS: BuPROPion XL* 150 MG TAB.XL PO SCH (09:58)
[2019-10-04] MEDS: Gabapentin CAP(*) 100 MG PO SCH ×2 (09:59→21:17)
[2019-10-04] MEDS: Docusate CAP* 100 MG PO SCH ×3 (10:00→21:18)
[2019-10-04] MEDS: Sertraline* 50 MG TAB PO SCH (10:00)
[2019-10-04] MEDS: Ibuprofen TAB* 600 MG PO PRN ×3 (10:00→21:18)
[2019-10-04] MEDS ORDERED: Ferrous Gluconate TAB* 324 MG TAB ONE (14:11)
[2019-10-04] MEDS: Ferrous Gluconate TAB* 324 MG TAB PO SCH ×2 (14:14→21:18)
[2019-10-05] MEDS: Ibuprofen TAB* 600 MG PO PRN ×3 (01:51→16:24)
[2019-10-05] MEDS: Simethicone TAB* 80 MG TAB.CHEW PO SCH (07:56)
[2019-10-05] MEDS: Clindamycin 900 MG/D5W BAG(*) 900 MG/50 ML BAG IVPB SCH (07:59)
[2019-10-05] MEDS: BuPROPion XL* 150 MG TAB.XL PO SCH (08:12)
[2019-10-05] MEDS: Ferrous Gluconate TAB* 324 MG TAB PO SCH (08:12)
[2019-10-05] MEDS: Gabapentin CAP(*) 100 MG PO SCH (08:13)
[2019-10-05] MEDS: Docusate CAP* 100 MG PO SCH ×2 (08:13→16:24)
[2019-10-05] MEDS: Sertraline* 50 MG TAB PO SCH (08:18)
[2019-10-05 08:29] VITALS: BP 148/91
== END 2019-10-05 17:00 | disposition home or self-care (01) | DRG 560 ==
LOC: MCHOBOUT 10:43 → MCHOB 12:09
PROVIDERS: ADMIT Obstetrics & Gynecology; ATTEND Obstetrics & Gynecology
PROC: 10E0XZZ Delivery of Products of Conception, External Approach (ICD-10-PCS; principal; 2019-10-03)
PROC: 10907ZC Drainage of Amniotic Fluid, Therapeutic from Products of Conception, Via Natural or Artificial Opening (ICD-10-PCS; 2019-10-03)
PROC: 0HQ9XZZ Repair Perineum Skin, External Approach (ICD-10-PCS; 2019-10-03)
DX: O14.04 Mild to moderate pre-eclampsia, complicating childbirth (principal); Z37.0 Single live birth; O99.344 Other mental disorders complicating childbirth; F41.9 Anxiety disorder, unspecified; O42.019 Preterm premature rupture of membranes, onset of labor within 24 hours of rupture, unspecified trimester; O99.214 Obesity complicating childbirth; O70.0 First degree perineal laceration during delivery; Z3A.34 34 weeks gestation of pregnancy
CPT/HCPCS: 36415; 80053; 80307; 84112; 84550; 85025; 85610; 86850; 86900; 86901; 88307; A9270-GY

== ENCOUNTER 2024-07-31 05:11 | Inpatient (IN) ==
[2024-07-31] MEDS ORDERED: ceFOXitin 2 GM IVPREMIX 2 GM/50 ML BAG IVPB ONE (06:00)
[2024-07-31] MEDS ORDERED: Lactated Ringers 1000 ml BAG 1,000 ML IV SCH ×4 (06:00→13:00)
[2024-07-31] MEDS ORDERED: Lactated Ringers 1000 ml BAG 1,000 ML IV ONE (06:00)
[2024-07-31 06:39] LABS: Hematocrit 31.4 % (35-45); Hemoglobin 10.5 g/dL (11.5-14.3); Mean Corpuscular Hemoglobin 27.8 pg (27-33); Mean Corpuscular Hgb Conc 33.5 g/dL (31-36); Mean Corpuscular Volume 83.1 fL (80-97); Red Blood Count 3.78 10^6/uL (3.63-4.92); White Blood Count 8.8 10^3/uL (3.8-11.8)
[2024-07-31] MEDS ORDERED: Oxytocin 10 UNITS/ML 1 ML VIAL ONE (07:24)
[2024-07-31] MEDS ORDERED: Phenylephrine IV 10 MG/ML 1 ml VIAL ONE (07:24)
[2024-07-31] MEDS ORDERED: Morphine PF AMP (0.5MG/ML) 5 MG/10 ML AMP ONE (07:25)
[2024-07-31 07:29] LABS: ABS Eosinophils 0.1 10^3/uL (0.0-0.5); ABS Monocytes 0.5 10^3/uL (0.0-0.9); ABS Neutrophils 6.2 10^3/uL (1.5-7.6); ABS Nucleated RBC 0.01 10^3/ul; Eosinophil % 1.3 %; Large Platelets Present; Lymphocyte % 22.5 %; Mean Platelet Volume 11.3 fL (7.5-11.2); Nucleated Red Blood Cells % 0.1 %/100WBC (0.0-0.8); Platelet Count 176 10^3/uL (150-450)
[2024-07-31] MEDS ORDERED: Scopolamine 1 mg/72hr PATCH ONE (08:03)
[2024-07-31] MEDS: Sodium Citrate/Citric Acid LIQ 15 ML UDC PO ONE ×3 (08:10→12:56)
[2024-07-31] MEDS: Clindamycin 900 MG/D5W BAG 900 MG/50 ML BAG IVPB ONE (09:22)
[2024-07-31] MEDS: NS 0.9% IVPB ONE (09:24)
[2024-07-31] MEDS: GENTAMICIN ADULT IVPB ONE (09:24)
[2024-07-31] MEDS ORDERED: Ondansetron 4 mg VIAL 2 MG/ML 2 ml VIAL ONE (09:43)
[2024-07-31] MEDS ORDERED: fentaNYL 100 mcg/2 ml 50 MCG/ML VIAL ONE (09:55)
[2024-07-31] MEDS ORDERED: Acetaminophen IV 1 GM/100ML 1,000 MG/100 ML BAG IV ONE (10:05)
[2024-07-31] MEDS ORDERED: Ondansetron 4 mg VIAL 2 MG/ML 2 ml VIAL IV PRN (10:17)
[2024-07-31] MEDS ORDERED: Acetaminophen IV 1 GM/100ML 1,000 MG/100 ML BAG IV PRN (10:17)
[2024-07-31] MEDS ORDERED: Naloxone 0.4 mg VIAL 0.4 mg/ml 1 ml VIAL IV PUSH PRN (10:17)
[2024-07-31] MEDS ORDERED: Metoclopramide 5 MG/ML VIAL (10 mg) IV PRN (10:17)
[2024-07-31] MEDS ORDERED: Naloxone 0.4 mg VIAL 0.4 mg/ml 1 ml VIAL IV PRN (10:18)
[2024-07-31] MEDS ORDERED: fentaNYL 100 mcg/2 ml 50 MCG/ML VIAL IV PRN (10:18)
[2024-07-31] MEDS ORDERED: Glycerin ADULT 2.4 gm SUPP PR PRN (10:54)
[2024-07-31] MEDS ORDERED: Witch Hazel PAD JAR TOPICAL PRN (10:54)
[2024-07-31 11:42] LABS: Urine Benzodiazepine Screen None Detected (None Detect); Urine Cannabinoids Screen None Detected (None Detect); Urine Opiates Screen None Detected (None Detect)
[2024-07-31 12:14] LABS: Urine Appearance Clear; Urine Bilirubin Negative (Negative); Urine Blood 1+ (Negative); Urine Color Yellow; Urine Glucose Negative (Negative); Urine Ketones Trace (Negative); Urine Nitrite Negative (Negative); Urine Protein Trace (Negative); Urine Specific Gravity 1.025 (1.002-1.030); Urine Urobilinogen Negative (Negative)
[2024-07-31] MEDS: Buffered Lidocaine 1% SYRIN 1 ml INTRADERM ONE ×3 (12:54→12:55)
[2024-07-31] MEDS: Lactated Ringers 1000 ml BAG 1,000 ML IV ONE ×2 (12:55→12:56)
[2024-07-31 12:56] LABS: Urine Bacteria Absent /HPF (Absent); Urine Red Blood Cell 3+(>10/hpf) /HPF (0-Trace); Urine Squamous Epithelial Cell Present /HPF (Absent); Urine White Blood Cell Trace(0-5/hpf) /HPF (0-Trace)
[2024-07-31] MEDS: Oxytocin in LR 20,000 MILLI.UNIT/1,000 ML BAG IV SCH (14:02)
[2024-08-01 06:56] LABS: ABS Eosinophils 0.1 10^3/uL (0.0-0.5); ABS Lymphocytes 1.3 10^3/uL (1.0-4.8); ABS Monocytes 0.4 10^3/uL (0.0-0.9); ABS Neutrophils 6.7 10^3/uL (1.5-7.6); Eosinophil % 0.6 %; Hematocrit 28.5 % (35-45); Hemoglobin 9.5 g/dL (11.5-14.3); Lymphocyte % 15.7 %; Mean Corpuscular Hgb Conc 33.4 g/dL (31-36); Mean Corpuscular Volume 83.7 fL (80-97); Mean Platelet Volume 10.9 fL (7.5-11.2); Platelet Count 135 10^3/uL (150-450); Red Cell Distribution Width 15.4 % (12-17); White Blood Count 8.6 10^3/uL (3.8-11.8)
[2024-08-02] MEDS: Polyethylene Glycol 3350 17 GM PACKET PO PRN (01:19)
[2024-08-03 08:31] VITALS: BP 130/74
== END 2024-08-03 14:10 | disposition home or self-care (01) | DRG 540 ==
LOC: MCHOB 05:11
PROVIDERS: ADMIT Obstetrics & Gynecology; ATTEND Obstetrics & Gynecology